=== PATIENT | female | born 1975 | race Caucasian/White ===

== ENCOUNTER → 2018-03-03 14:44 | Outpatient (CLI) | payer BC, SELFPAY ==
[2018-03-03 16:02] LABS: Hematocrit 40.8 % (37-47); Hemoglobin 13.9 g/dl (12.0-15.0); Mean Corp Hgb Conc 34.1 g/gl (32-36); Mean Corpuscular Volume 90.9 fL (81-99); Mean Platelet Vol. 11.3 fl (6.2-12.0); Platelet Count 289 K/mm3 (150-450); RBC Distribution Width CV 11.9 % (11.6-14.6); Red Blood Count 4.49 M/mm3 (4.2-5.4); White Blood Count 7.3 K/mm3 (4.4-11.0)
[2018-03-03 16:14] LABS: Scan Indicated on CBC? Y/N NO
[2018-03-03 16:27] LABS: Anion Gap 3 (5-15); BUN 11 mg/dL (7-18); BUN/Creat Ratio 10.7 RATIO (10-20); Chloride 105 mmol/L (98-107); Creatinine, Serum 1.03 mg/dL (0.55-1.02); EST Glomerular Filtration Rate 62 mL/min (>60); Est Glom Filt Rate - Afr Amer 75 mL/min (>60); Glucose 82 mg/dL (74-106); Magnesium 2.1 mg/dL (1.6-2.6); Potassium 3.9 mmol/L (3.5-5.1); Sodium Level 138 mmol/L (136-145)
== END ==
PROVIDERS: Family Provider Family Medicine; PCP Family Medicine; Visit Provider Physician Assistant Medical
DX: I49.3 Ventricular premature depolarization (principal); R55 Syncope and collapse; I47.1 Supraventricular tachycardia
CPT/HCPCS: 36415; 80048; 83735; 85027

== ENCOUNTER → 2018-03-04 08:58 | Outpatient (CLI) | payer BC, SELFPAY | PROVIDERS: Family Provider Family Medicine; PCP Family Medicine; Visit Provider Physician Assistant Medical | DX: I49.3 Ventricular premature depolarization (principal); I47.1 Supraventricular tachycardia; R55 Syncope and collapse | CPT/HCPCS: 93225; 93226 ==

== ENCOUNTER → 2018-03-28 07:31 | Day surgery (SDC) | payer BC, SELFPAY ==
[2018-03-21 15:41] LABS: Hematocrit 41.6 % (37-47); Hemoglobin 13.9 g/dl (12.0-15.0); Mean Corp Hgb Conc 33.4 g/gl (32-36); Mean Corpuscular Hgb 30.3 pg (27.0-32.0); Mean Corpuscular Volume 90.8 fL (81-99); Mean Platelet Vol. 11.1 fl (6.2-12.0); Platelet Count 285 K/mm3 (150-450); RBC Distribution Width SD 39.5 fl (35.1-43.9); Red Blood Count 4.58 M/mm3 (4.2-5.4); White Blood Count 7.9 K/mm3 (4.4-11.0)
[2018-03-21 15:42] LABS: Scan Indicated on CBC? Y/N NO
[2018-03-21 16:14] LABS: Anion Gap 8 (5-15); BUN 11 mg/dL (7-18); BUN/Creat Ratio 15.3 RATIO (10-20); Calcium,Total 8.9 mg/dL (8.5-10.1); Chloride 104 mmol/L (98-107); Creatinine, Serum 0.72 mg/dL (0.55-1.02); EST Glomerular Filtration Rate 94 mL/min (>60); Est Glom Filt Rate - Afr Amer 113 mL/min (>60); Glucose 61 mg/dL (74-106); Potassium 4.1 mmol/L (3.5-5.1); Sodium Level 142 mmol/L (136-145)
[2018-03-25 10:33] VITALS: BMI 33.0
--- NOTE | 2018-03-28 09:54 | CL.IE_ITS ---
Patient: GONZALEZ LARSON Study Date: 03/28/2018 Performing: Carter Balderrama MD : 1975 Age: 43 Gender: female PROCEDURES PERFORMED [id number] OF LOOP RECORDER INDICATIONS Syncope PROCEDURE DETAILS The patient was brought to the Catheterization Lab in the postabsorptive nonsedated state. Informed consent was obtained prior to the procedure. Local anesthetic was given subcutaneously to the left up per chest area with Lidocaine 2%. Incision was made to the left upper chest. ICM Loop Recorder was in serted. Steri-strips applied to Lt chest area. The patient tolerated the procedure well. Estimated Blood Loss: < 10 mls IMPLANTED / EX-PLANTED DEVICES DEVICE PARAMETERS CONCLUSIONS / RECOMMENDATIONS PROCEDURE MEDICATIONS Versed 1 mg IV Versed 1 mg IV Oxygen: 2 L/min via nasal cannula Antibiotic given in appropriate timeframe. Ancef 2 Gm IV @ 03/28/2018 09:30:21 Signed By Carter Balderrama MD On 03/28/2018 09:53:15 Carter Balderrama MD
== END ==
PROVIDERS: Internal Medicine Cardiovascular Disease; Family Provider Family Medicine; PCP Family Medicine; Visit Provider Internal Medicine Cardiovascular Disease
DX: I47.1 Supraventricular tachycardia (principal); I49.3 Ventricular premature depolarization; M79.7 Fibromyalgia; K58.9 Irritable bowel syndrome, unspecified; G40.909 Epilepsy, unspecified, not intractable, without status epilepticus; Z87.19 Personal history of other diseases of the digestive system; Z86.2 Personal history of diseases of the blood and blood-forming organs and certain disorders involving the immune mechanism; Z86.73 Personal history of transient ischemic attack (TIA), and cerebral infarction without residual deficits; Z90.49 Acquired absence of other specified parts of digestive tract; Z79.899 Other long term (current) drug therapy
CPT/HCPCS: 33282; 36415; 80048; 85027; 99152; 99153; J7040

== ENCOUNTER 2018-05-01 12:58 | Emergency (ER) | payer BC, SELFPAY ==
[2018-05-01 13:00] VITALS: BP 125/63; PULSE 65; RESP 12; TEMP 36.8; O2SAT 100; BMI 33.2
--- NOTE | 2018-05-01 14:59 | ED.VISSUMM ---
- ER Visit Summary Date of Service: 05/01/18 Chief Complaint: Surgical site pain History of Present Illness: The patient is a 43 F who states that on March 29 she had a loop recorder placed. She states that everything is been going well until yesterday when she began have an itch at the surgical site. She states she went to scratch it was very painful. Now she states that the pain is worse. She tells me she cannot take anti-inflammatories. She has chronic back pain. Physical Examination: Afebrile vital signs stable At the site of the surgical incision medial aspect left breast there is a healed incision. Is mildly tender to palpation there is no significant swelling. There is no erythema around the area. Emergency Department Course and Treatment: I spoke with for the patient's automation qa analyst. Patient be treated conservatively at home some heat avoidance of irritation. Should resolve. Return if worsening or concerns Impression: 1. Postoperative wound pain not infected This note was generated with Share0 dictation software. It may contain incorrect words, spelling, and punctuation that were not noted in review of the chart prior to signing ED Disposition - Plan for ED Patient: Disposition: Home or Assisted Living Chief Complaint: Abscess Instructions: ED Post Op Pain, ED Seroma Post Op Referrals: Carter Balderrama MD [STAFF PHYSICIAN] - 3-5 Days if not improving
== END 2018-05-01 15:45 | disposition home or self-care (01) ==
PROVIDERS: Emergency Provider Emergency Medicine; Family Provider Family Medicine; PCP Family Medicine
DX: G89.18 Other acute postprocedural pain (principal); M54.9 Dorsalgia, unspecified; G89.29 Other chronic pain; I47.1 Supraventricular tachycardia; Z86.73 Personal history of transient ischemic attack (TIA), and cerebral infarction without residual deficits; Z79.899 Other long term (current) drug therapy
CPT/HCPCS: 99282

== ENCOUNTER → 2018-07-19 13:02 | Outpatient (CLI) | payer BC, SELFPAY ==
--- NOTE | 2018-07-19 13:04 | RAD_ITS ---
STUDY: X-RAY - LEFT KNEE REASON FOR EXAM: Chronic pain. TECHNIQUE: 4 view(s) of the knee. COMPARISON: None. FINDINGS: Normal visualized distal femur. Normal visualized proximal tibia and fibula. Normal proximal tibiofibular articulation. Normal medial femorotibial compartment. Normal lateral femorotibial compartment. Normal patellofemoral articulation. The soft tissue structures are unremarkable. RAD/Knee 4 or More Views IMPRESSION: Normal x-ray examination of the left knee. Electronically Signed: Juan Dias MD at 9:18 EST Tel , Service support ,
== END ==
PROVIDERS: Family Provider Family Medicine; PCP Family Medicine; Referring Provider Orthopaedic Surgery; Visit Provider Orthopaedic Surgery
DX: M25.562 Pain in left knee (principal)
CPT/HCPCS: 73564

== ENCOUNTER → 2018-08-17 17:37 | Outpatient (CLI) | payer BC, SELFPAY ==
--- NOTE | 2018-08-17 17:54 | MRI_ITS ---
STUDY: MRI LEFT ANKLE WITHOUT CONTRAST REASON FOR EXAM: Female, 43 years old. Plantar heel pain to arch. TECHNIQUE: Standardized fat and water weighted pulse sequences were obtained in all 3 orthogonal planes. COMPARISON: None. FINDINGS: There is a 0.4 x 0.6 x 1.5 cm cystic lesion along the dorsal aspect of the third metatarsal base. This most likely represents a ganglion cyst. There is otherwise no soft tissue mass or cyst. Normal posterior tibialis tendon. Normal flexor digitorum longus tendon. Normal flexor hallucis longus tendon. Normal peroneus longus and brevis tendons. Normal tibialis anterior tendon. Normal extensor hallucis longus tendon. Normal extensor digitorum longus tendons. Normal Achilles tendon and teno-osseous insertion. There is a small calcaneal heel spur. There is mild marrow edema in the plantar calcaneus. There is mild thickening of the origin of the plantar fascia. Findings are consistent with mild plantar fasciitis. There is no high-grade tear. Mild edema is noted in the head of the talus. There is no evidence of fracture. Narrow signal is otherwise normal. Normal intrinsic muscles of the rearfoot. Normal distal tibiofibular syndesmotic ligamentous complex. Normal lateral ligamentous complex. Normal subtalar ligaments and sinus tarsi. Normal deltoid ligamentous complexes. Normal plantar calcaneonavicular (spring) ligament. There is a small ankle joint effusion. Trace subtalar joint effusion is noted. Joint spaces are otherwise well-maintained. MRI/Lower Ext Joint Only (Routine) IMPRESSION: Mild plantar fasciitis. A 1.5 cm ganglion cyst along the dorsal aspect of the third metatarsal base. Mild marrow edema in the talar head, possible early degenerative change. Electronically Signed: Desiree Ignacio MD at 22:15 EST Tel , Service support ,
== END ==
PROVIDERS: Family Provider Family Medicine; PCP Family Medicine; Referring Provider Podiatrist; Visit Provider Podiatrist
DX: M72.2 Plantar fascial fibromatosis (principal); M84.375A Stress fracture, left foot, initial encounter for fracture; M79.672 Pain in left foot
CPT/HCPCS: 73721

== ENCOUNTER → 2018-08-26 10:16 | Outpatient (CLI) | payer BC, SELFPAY ==
[2018-08-26 12:47] LABS: Absolute Lymphocyte Count 1.66 X10^3/ul (0.83-4.51); Absolute Neutrophil Count 4.2 X10^3/uL (2.0-7.7); Basophil# 0.03 X10^3/uL; Basophil% 0.5 % (0-1); Eosinophil# 0.08 X10^3/uL; Eosinophils% 1.3 % (0-5); Hematocrit 40.4 % (37-47); Hemoglobin 13.4 g/dl (12.0-15.0); Lymphocyte # 1.66 X10^3/ul (4.0); Mean Corp Hgb Conc 33.2 g/gl (32-36); Mean Corpuscular Hgb 29.9 pg (27.0-32.0); Mean Corpuscular Volume 90.2 fL (81-99); Mean Platelet Vol. 11.6 fl (6.2-12.0); Monocyte# 0.44 X10^3/uL; Monocyte% 6.9 % (0-10); Neutrophil # 4.16 X10^3/uL (2.7-7.7); Neutrophil % 65.1 % (47-70); Platelet Count 273 K/mm3 (150-450); RBC Distribution Width CV 12.3 % (11.6-14.6); RBC Distribution Width SD 39.6 fl (35.1-43.9); Red Blood Count 4.48 M/mm3 (4.2-5.4); White Blood Count 6.4 K/mm3 (4.4-11.0)
[2018-08-26 13:02] LABS: POSITIVE COUNT NO; POSITIVE DIFFERENTIAL NO; POSITIVE MORPHOLOGY NO
[2018-08-26 13:58] LABS: ALB/GLOB Ratio 1.1 RATIO (0.9-2.4); AST(SGOT) 21 U/L (15-37); Alanine Aminotransfer ALT/SGPT 36 U/L (13-56); Albumin, Serum 3.7 g/dL (3.2-5.0); Alkaline Phosphatase 72 U/L (45-117); Anion Gap 6 (5-15); BUN 11 mg/dL (7-18); BUN/Creat Ratio 15.1 RATIO (10-20); Calcium,Total 8.6 mg/dL (8.5-10.1); Chloride 106 mmol/L (98-107); Creatinine, Serum 0.73 mg/dL (0.55-1.02); EST Glomerular Filtration Rate 92 mL/min (>60); Est Glom Filt Rate - Afr Amer 111 mL/min (>60); Globulin 3.4 g/dL (2.2-4.2); Glucose 91 mg/dL (74-106); Potassium 3.9 mmol/L (3.5-5.1); Protein, Total 7.1 g/dL (6.4-8.2); Sodium Level 140 mmol/L (136-145); Thyroid Stim Hormone (TSH) 0.97 uIU/mL (0.358-3.74)
--- OUTSIDE RECORDS SUMMARY | 2018-10-12 01:09 | XMS RPT_ITS ---
:1975 Author Organization OHIP Support Name Relationship Address Phone ADDIS AMIN Unavailable [address] + [place] [address] UE Unavailable Unavailable Unavailable BRENNAN, ADDIS M Unavailable [address] + [place] [address] BRENNAN, PAULO M Unavailable [address] + [place] [address] UE Unavailable Unavailable Unavailable BRENNAN, ADDIS M Unavailable [address] + [place] [address] BRENNAN, PAULO M Unavailable [address] + [place] [address] UE Unavailable Unavailable Unavailable BRENNAN, ADDIS M Unavailable [address] + [place] [address] BRENNAN, PAULO M Unavailable [address] + [place] [address] UE Unavailable Unavailable Unavailable BRENNAN, ADDIS M Unavailable [address] + [place] [address] BRENNAN, PAULO M Unavailable [address] + [place] [address] UE Unavailable Unavailable Unavailable BRENNAN, ADDIS M Unavailable [address] + [place] [address] BRENNAN, PAULO M Unavailable [address] + [place] [address] UE Unavailable Unavailable Unavailable BRENNAN, ADDIS M Unavailable [address] + [place] [address] BRENNAN, PAULO M Unavailable [address] + [place] [address] UE Unavailable Unavailable Unavailable BRENNAN, ADDIS M Unavailable [address] + [place] [address] BRENNAN, PAULO M Unavailable [address] + [place] [address] UE Unavailable Unavailable Unavailable BRENNAN, ADDIS M Unavailable [address] + [place] [address] BRENNAN, PAULO M Unavailable [address] + [place] [address] UE Unavailable Unavailable Unavailable BRENNAN, ADDIS M Unavailable [address] + [place] [address] BRENNAN, PAULO M Unavailable [address] + [place] [address] UE Unavailable Unavailable Unavailable BRENNAN, ADDIS M Unavailable [address] + [place] [address] BRENNAN, PAULO M Unavailable [address] + [place] [address] UE Unavailable Unavailable Unavailable BRENNAN, ADDIS M Unavailable [address] + [place] [address] BRENNAN, PAULO M Unavailable [address] + [place] [address] UE Unavailable Unavailable Unavailable BRENNAN, ADDIS M Unavailable [address] + [place] [address] BRENNAN, PAULO M Unavailable [address] + [place] [address] UE Unavailable Unavailable Unavailable BRENNAN, ADDIS M Unavailable [address] + [place] [address] BRENNAN, PAULO M Unavailable [address] + [place] [address] UE Unavailable Unavailable Unavailable BRENNAN, ADDIS M Unavailable [address] + [place] [address] BRENNAN, PAULO M Unavailable [address] + [place] [address] UE Unavailable Unavailable Unavailable BRENNAN, ADDIS M Unavailable [address] + [place] [address] BRENNAN, PAULO M Unavailable [address] + [place] [address] UE Unavailable Unavailable Unavailable BRENNAN, ADDIS M Unavailable [address] + [place] [address] BRENNANPAULO Unavailable [address] + [place] [address] UE Unavailable Unavailable Unavailable BRENNANADDIS M Unavailable [address] + [place] [address] BRENNANPAULO Unavailable Unavailable + UE Unavailable Unavailable Unavailable BRENNAN, ADDIS M Unavailable [address] + [place] [address] UE Unavailable Unavailable Unavailable BRENNANADDIS M Unavailable [address] + [place] [address] UE Unavailable Unavailable Unavailable Care Team Providers Name Role Phone Leo Gonzalez Attending Unavailable Lexa, Mane Primary Care Unavailable Ebenezer Durham Attending Unavailable Lexa, Mane Referring Unavailable Lexa, Mane Primary Care Unavailable Ebenezer Durham Attending Unavailable Lexa, Mane Referring Unavailable Rayne Thomas Attending Unavailable Rayne Thomas Referring Unavailable Lexa, Mane Primary Care Unavailable Celine Sampson Attending Unavailable Lexa, Mane Referring Unavailable Leo Mazariegos Attending Unavailable Leo Gonzalez Attending Unavailable Leo Gonzalez Referring Unavailable Lexa, Mane Primary Care Unavailable Leo Gonzalez Attending Unavailable eLo Gonzalez Referring Unavailable Lexa, Mane Primary Care Unavailable Dani Gonzalez Consulting Unavailable Lupe Morse Attending Unavailable Lexa, Mane Referring Unavailable Lupe Morse Attending Unavailable Lexa, Mane Referring Unavailable Lexa, Mane Primary Care Unavailable Stewart Balderramal Attending Unavailable Conchis, Carter Referring Unavailable Lexa, Mane Primary Care Unavailable Ebenezer Durham Consulting Unavailable Kamron Elise Attending Unavailable LexaMane brown Referring Unavailable Kamron Elise Attending Unavailable Lexa, Mane Referring Unavailable Ebenezer Durham Attending Unavailable Conchis, Carter Attending Unavailable Lexa, Mane Primary Care Unavailable Lonnie Coates Attending Unavailable Lupe Morse Attending Unavailable Lexa, Mane Referring Unavailable Celine Sampson Attending Unavailable Lexa, Mane Referring Unavailable Celine Sampson Attending Unavailable Celine Sampson Referring Unavailable Mane Lindquist Primary Care Unavailable Fascione, Rayne Attending Unavailable Fascione, Rayne Referring Unavailable LexaMane brown Primary Care Unavailable LJ BENITES (FEL) Referring Unavailable LJ BENITES (FEL) Referring Unavailable ARELLANOADDIS [place] Referring Unavailable DELZELL, FREDDY B Referring Unavailable VILLAREAL, JESUS P Attending Unavailable VILLAREAL, JESUS P Admitting Unavailable VILLAREAL, JESUS P Attending Unavailable VILLAREAL, JESUS P Referring Unavailable VILLAREAL, JESUS P Attending Unavailable VILLAREAL, JESUS P Attending Unavailable VILLAREAL, JESUS P Attending Unavailable VILLAREAL, JESUS P Attending Unavailable VILLAREAL, JESUS P Referring Unavailable SILVIARADHABRISA Attending Unavailable SILVIA, BRISA Referring Unavailable Fascione, Rayne M Primary Care Unavailable Delzell, Freddy Attending Unavailable Delzell, Freddy Admitting Unavailable Fascione, Rayne M Admitting Unavailable Fascione, Rayne M Attending Unavailable Fascione, Rayne M Primary Care Unavailable Fascione, Rayne M Primary Care Unavailable Chicmichael, Catherine Porras Attending Unavailable Chicorelshilo, Cahterine Porras Admitting Unavailable PROBLEMS PROBLEMS DATE TYPE CONDITION / CODE ATTENDING STATUS SOURCE 09/01/2018 Unknown M25.562 - Pain in left [place], Active [place] knee / M25.562(ICD-10) [facility] Repository 09/01/2018 Unknown G89.29 - Other chronic [place], Active [place] pain / G89.29(ICD-10) [facility] Repository 09/01/2018 Unknown S76.312D - Strain of [place], Active [place] muscle, fascia and [facility] posterior muscle group Repository at thigh level, left thigh, subsequent encounter / S76.312D(ICD-10) 08/11/2018 Active Other specified NA Active [facility] Main nasal sinuses / [facility] J34.89(ICD-10) Repository 08/01/2018 Active Low back pain / NA Active [facility] M54.5(ICD-10) [facility] Main [place] Repository 08/01/2018 Active Other chronic pain / NA Active [place] G89.29(ICD-10) [facility] Main [place] Repository 07/13/2018 Unknown R55 - Syncope and Lupe Morse Active [place] collapse / [facility]-10) [facility] 07/13/2018 Unknown I49.3 - Ventricular Lupe Morse Active [place] premature [facility] depolarization / Hospital I49.3(ICD-10) Repository 07/13/2018 Unknown I47.1 - Lupe Morse Active [place] Supraventricular [facility] tachycardia / Hospital I47.1(ICD-10) Repository 07/13/2018 Unknown Z95.818 - Presence of Lupe Morse Active [facility] other cardiac implants Community and grafts / Hospital Z95.818(ICD-10) Repository 12/01/2017 Active Sacroiliitis, not VILLAREAL, Active [facility] elsewhere classified / JESUS P Clinic Main M46.1(ICD-10) [facility] Repository 12/01/2017 Active Iliotibial band VILLAREAL, Active [place] syndrome, left leg / JESUS P Clinic Main M76.32(ICD-10) [facility] Repository 10/28/2017 Active Pain in left hip / NA Active [place] M25.552(ICD-10) [facility] Main [place] Repository 09/28/2017 Active Trochanteric bursitis, NA Active [place] left hip / Clinic Main M70.62(ICD-10) [facility] Repository 09/28/2017 Active Other specified NA Active [place] disorders of muscle / Clinic Main M62.89(ICD-10) [facility] Repository 09/28/2017 Active Radiculopathy, NA Active [place] cervical region / Clinic Main M54.12(ICD-10) [facility] Repository PROCEDURES PROCEDURES No Procedure Records FoundRESULTS RESULTS OPERATIVE REPORT Observed: 09/15/2018 Status: F Source: [place] 10:24 AM [facility] REPOSITORY [facility] Medical Records Department [address] [place] [address] Operative Report 09/09/18 1215 MR#: [id number] Acct: [id number] Name: LINDA AMIN Rep #: [id number] : 1975 43 From: Rayne Thomas DPM PCP: Mane Lindquist DO Status: DEP [facility] Y Location: [facility] Problem List (1) Plantar fasciitis of left foot Status: Chronic (2) Left foot pain Status: Chronic Report of Operation Date of Procedure: 09/09/18 - Surgeon: Rayne Thomas DPM. Dietary Service Aide: Dilip Hahn, PGY2 Pre-Operative Diagnosis: plantar fasciitis, left foot Post-Operative Diagnosis: plantar fasciitis, left foot Surgery/Procedure Performed:: open plantar fasciotomy, left foot Description of Surgical Findings:: hemostasis: Well-padded pneumatic left ankle tourniquet, 250 mmHg, 16 minutes Materials: 3-0 Vicryl and 4-0 nylon Complications: None Findings: Thickening of the plantar fascial band without other gross abnormalities or necrosis prisoner classification interviewer: none Type of Anesthesia:: Local, MAC - Preoperative: 1: 1 mix of 1% lidocaine plain and 0.25% Marcaine plain, 8cc to tibial nerve left Intraoperative: 6 cc of 0.25% Marcaine plain administered in a local infiltrative manner to left heel Specimen's removed: none Estimated Blood Loss (mL): <10 mL Description of Procedure: Indication: This 43-year-old pleasant female with 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 The onset is over 6 months ago and she is failed conservative care including stretching, exercises, shockwave therapy, and also radiculopathy workup and treatment. She demonstrates clinical pain on palpation to medial tubercle of the calcaneal tuberosity and plantar central heel and just distal to this attachment site. She has a negative Tinel test to the tibial nerve. Her neurovascular status is intact. Her preoperative history and physical exam performed by her primary care physician as well as preoperative laboratory diagnostic data were reviewed. No gross abnormalities were noted and she was cleared with low risk. She did also have preoperative imaging including plain x-ray and MRI. A small heel spur was noted and there was no cystic changes or evidence of stress fracture. There was marrow edema at the insertion of the plantar fascial band and thickening and inflammation of the medial and central plantar fascial bands. The preoperative indication, planned procedure, possible benefits, risks, complications, and anticipated healing time and management were discussed in detail to patient. She understands and elects to proceed with surgery at this time. No guarantees were made. She understands risks and complications may include but are not limited to the following: continued pain, swelling, scarring, recurrence, under or overcorrection, loss of sensation, need for further surgery, loss of limb, function, life. I answered all of her questions. The surgical consent and limb were signed. Procedure in detail: The patient was transported to the operating room via cart and placed on the operating table in supine position. Final verification of the patient, surgery, limb designation was performed via the timeout procedure. A well-padded pneumatic left ankle tourniquet was applied. The preoperative injection was administered by the podiatry team. MAC anesthesia was initiated by the anesthesia team. The left lower extremity was prepped and draped in the usual aseptic manner. Surgery began in the following manner after an Esmarch bandage was utilized exsanguinate the limb and the tourniquet was inflated: Attention was first directed approximately 1.5 cm distal to the plantar weightbearing surface of the medial heel. A horizontal 1.5 cm linear incision was made through the skin remaining parallel to the resting skin tension lines. Next, blunt dissection was performed through the adipose tissue and the plantar fascial band was directly visualized. A 15 blade was utilized to release the plantar fascia band including the medial aspect and the entire central band. The windlass mechanism was re-created and decreased tension was visualized and palpated. Additional tenotomy scissor was used to ensure the medial slips extending into the abductor hallucis muscle belly sheath were thoroughly released as well. This plantar fascial band did appear thick and there were no other abnormal findings. Minimal electrocauterization was utilized to control hemostasis for a superficial vein in this region. The tourniquet was deflated at this time and no pulsatile bleeding was noted. Brisk capillary refill time was noted to all digits of the surgical limb. Additional Marcaine local anesthetic was administered and a local infiltrative manner for additional pain control. One Vicryl stitch was applied for deep closure. Next, the skin was reapproximated utilizing 4-0 nylon with horizontal mattress technique. A postoperative dressing consisting of Adaptic soaked in Betadine, gauze, Kerlix and webril was applied to left foot. A well-padded posterior mold with the foot in a neutral position was next applied. After procedure: The patient tolerated the procedure and anesthesia well. She was transported to the PACU with vital signs stable and vascular status intact to left lower extremity. She was advised to ice and elevate for pain and inflammation management. She was advised to remain nonweightbearing to left lower extremity with assistive devices; she has a knee roller at home already. She is advised to keep her dressing and splint clean, dry, and intact until [facility] next week with Dr. Thomas. She was advised on safe and proper use of postoperative oral pain medication; a prescription was already provided. All of her postoperative orders were entered electronically. She will be discharged home today. Rayne Thomas DPM, FACFAS [facility] - Complications none 09/15/18 1024 <Electronically signed by Rayne Thomas DPM> Date Rayne Thomas DPM CC: Rayne Thomas DPM; Mane Lindquist DO Signed DISCHARGE INSTRUCTION Observed: 09/09/2018 Status: F Source: [place] 12:07 PM [facility] REPOSITORY [facility] Medical Records Department [address] [place] [address] Instructions for Home/Discharge Instructions 09/09/18 1206 MR#: [id number] Acct: [id number] Name: LINDA AMIN Rep #: [id number] : 1975 43 From: Rayne Thomas DPM PCP: Mane Lindquist DO Status: REG [facility] Discharge Diet: No Restrictions Discharge Activity: May not drive while taking narcotic pain medications. Weight Bearing Status: No weight bearing Keep extremity elevated above heart level: Left Leg Call your doctor if your incision/area has: Continuous Slow Oozing, Sudden Increased Bleeding, Increased Pain/ Swelling, Increased Redness, Foul Smelling Discharge, Swelling at the incision site Call your doctor if you observe: Fever of 101 or Higher, Numbness or Tingling, Calf discomfort, Uncontrolled pain Cleanse incision/area with: Keep Dressing Clean AND Dry Allergies/Adverse Reactions: Allergies codeine Allergy (Unknown, Verified 09/02/18 11:12) tachycardia, syncope adhesive tape Allergy (Verified 09/02/18 11:12) blisters Medications to take at Discharge Cyanocobalamin (Vitamin B-12) [B-12] 5,000 mcg PO DAILY 05/30/15 Magnesium Oxide [Magnesium] 400 mg PO QHS 05/30/15 Ascorbic Acid [Vitamin C] 1,000 mg PO QHS 10/21/16 cholecalciferol (vitamin D3) 2,000 unit capsule 2,000 unit PO QDAY cap 10/04/17 lactobacillus combination no.8 3 billion cell capsule 3,000 mmu cells PO QDAY 10/08/17 Calcium (Elemental) [Os-Spenser 500] 500 mg PO DAILY@0800 09/02/18 Metoprolol Succinate [Toprol Xl] 100 mg PO QHS 09/02/18 Primary Care Physician: Mane Lindquist DO [Primary Care Provider] - Test Results: Test results from this visit will be discussed in further detail at your follow-up appointment, if applicable. Please Follow Up With: Rayne Thomas DPM When: [facility]. Call [phone] if questions. Proposed Discharge Date: 09/09/18 09/09/18 1207 <Electronically signed by Rayne Thomas DPM> Date Rayne Thomas DPM CC: Mane Lindquist DO Signed ,URINE Collected: 09/09/2018 Status: F Source: [place] 9:46 AM [facility] REPOSITORY Order Comment: Reason for Laboratory Test PREOP TYPE CODE TESTS RESULT OUT OF REFERENCE UNITS RANGE LAB L400.8000 Negative Normal HCGUQUAL Negative Result Comment: Very dilute urine specimens, as indicated by a low specific gravity, may not contain bilingual sales representative levels of hCG. If is still suspected, a first morning urine specimen should be collected 48 hours later and tested. Performed By: #### L400.7600 #### [facility] [address] [place], [address] ORTHOPEDIC VISIT Observed: 09/01/2018 Status: F Source: [place] REPORT 1:29 PM [facility] REPOSITORY [facility] [address] [place] [address] OFFICE VISIT Date of Service: 09/01/18 MR#: [id number] Acct: [id number] Name: LINDA AMIN Rep #: [id number] : 1975 Provider: Celine Sampson DO Age/Sex: 43/F Location: [facility] Status: Signed Intake Intake Visit Reasons: LEFT KNEE Is patient in pain?: Yes Allergies codeine Allergy (Unknown, Verified 09/01/18 12:49) tachycardia, syncope Medications Cyanocobalamin (Vitamin B-12) [B-12] 5,000 mcg PO DAILY 05/30/15 [History Confirmed 05/01/18] Magnesium Oxide [Magnesium] 400 mg PO QHS 05/30/15 [History Confirmed 05/01/18] Ascorbic Acid [Vitamin C] 1,000 mg PO QHS 10/21/16 [History Confirmed 05/01/18] cholecalciferol (vitamin D3) 2,000 unit capsule 2,000 unit PO QDAY cap 10/04/17 [History Confirmed 05/01/18] lactobacillus combination no.8 3 billion cell capsule 3,000 mmu cells PO QDAY 10/08/17 [History Confirmed 05/01/18] metoprolol succinate ER 100 mg tablet,extended release 24 hr 100 mg PO QDAY #90 tab 04/15/18 [Rx Confirmed 05/01/18] PFSH Medical History Premature ventricular contraction (Chronic) Syncope (Chronic) Supraventricular tachycardia (Chronic) Anemia (Acute) Diverticulitis (Acute) Fibromyalgia (Acute) IBS (irritable bowel syndrome) (Acute) Seizure (Acute) TIA (transient ischemic attack) (Acute) Recurrent syncope (Inactive) Sinus tachycardia (Inactive) Status post ablation for SVT (Inactive) Surgical History Status post placement of implantable loop recorder (Acute 03/28/18) History of cholecystectomy (Resolved) History of shoulder surgery (Resolved) S/P foot surgery, left (Resolved) Status post ablation of ventricular arrhythmia (Resolved 04/14/13) Family History Mother Diabetes CAD (coronary artery disease) CVA (cerebral vascular accident) Myocardial infarction Father Hypertension CVA (cerebral vascular accident) CHF (congestive heart failure) Social History Smoking Status: Never smoker alcohol intake: never HPI LEFT KNEE: Details: LINDA AMIN is a 43 year old F here today for a followup on her left knee. Patient states that she was doing well but then she started feeling pressure into her posterior knee.She feels better but not 100%. Patient feels like she has locking into her anterior superior knee. She has popping and clicking. She has some swelling at times. She has increased pain with physical therapy and turning. Denies numbness, tingling or other associated symptoms. ROS Const Reports system reviewed and no additional complaints, except as docu Eyes Reports system reviewed and no additional complaints, except as docu ENT Reports system reviewed and no additional complaints, except as docu Card Reports system reviewed and no additional complaints, except as docu Resp Reports system reviewed and no additional complaints, except as docu GI Reports system reviewed and no additional complaints, except as docu Reports system reviewed and no additional complaints, except as docu Musc Reports joint pain, Reports joint swelling Skin/Breast Reports system reviewed and no additional complaints, except as docu Neuro Yes system reviewed and no additional complaints, except as docu Psych Reports system reviewed and no additional complaints, except as docu Endo Reports system reviewed and no additional complaints, except as docu Ortho Exam Left Knee Skin/Wound: Yes CDI Contralateral Normal: Yes Swelling: No Homans Sign: No Knee ROM: Yes ROM-Extension -20 to 0, Yes ROM-Flexion 0-140 (120) Examination: Yes Pain with flexion, Yes med jt line tenderness, Yes Crepitus Stability: NML: Anterior Drawer Patella Grind: Yes Office Procedures Kenalog 40 mg/mL suspension for injection (triamcinolone acetonide) 80 mg Intra-Articular ONCE Injections Yes Knee Left Office Meds Kenalog Performing Provider: Celine Sampson DO Administered by: Celine Sampson DO on 09/01/18 13:12 Dose Route Admin Location Lot Number Expiration DateNDC It Support Manager 80 mg Intra-Articularleft knee [id number] 11/12/19 3337-9300-85 [place] Assessment AND Plan 1. Strain of left hamstring muscle, subsequent encounter S71.623Y Plan Reviewed her progress with strengthening. Instructed to continue to go to therapy. She has PF grinding today and her treatment options for that is an injection. She is also having foot surgery soon, she understands the risk and benefits of injection and elects to proceed. Follow up as needed or sooner if pain, swelling, numbness or associated symptoms, or concerns develop. All questions answered. Patient in agreement of plan. 2. Chronic pain of left knee M25.562; G89.29 Orders Orders: Medications Discontinued: Kenalog (triamcinolone acetonide) [id number] mg (2 mL) Intra-Articular ONCE 2 mL 0RF NS nued Reason: Office Medication has been Docu mented as given Coding Level of Care Code Off vis,est,level 3 Diagnoses Strain of left hamstring muscle, subsequent encounter S76.312D Encounter type: subsequent encounter Chronic pain of left knee M25.562; G89.29 Chronicity: chronic Additional Codes user interface [email or web address] ([id number]) 09/01/18 1329 <Electronically signed by Celine Sampson DO> Date Celine Sampson DO Cosigner Signature: Date (if applicable) CC: CBC W/DIFF, AUTOMATED Collected: 08/26/2018 Status: F Source: [place] 10:19 AM [facility] REPOSITORY Order Comment: DR. LINDQUIST ORDERED CMP AND CBCD LEO GONZALEZ ORDERED TSH ONLY TYPE CODE TESTS RESULT OUT OF RANGE REFERENCE UNITS LAB L100.1000 4.4-11.0 K/mm3 Normal WBC 6.4 LAB L100.1200 4.2-5.4 M/mm3 Normal RBC 4.48 LAB L100.1300 12.0-15.0 g/dl Normal HGB 13.4 LAB L100.1400 37-47 % Normal HCT 40.4 LAB L100.1500 81-99 fL Normal MCV 90.2 LAB L100.1600 27.0-32.0 pg Normal MCH 29.9 LAB L100.1700 32-36 g/gl Normal MCHC 33.2 LAB L100.1810 11.6-14.6 % Normal RDW CV 12.3 LAB L100.1820 35.1-43.9 fl Normal RDW SD 39.6 LAB L100.1900 150-450 K/mm3 Normal PLT 273 LAB L100.2000 6.2-12.0 fl Normal MPV 11.6 LAB L100.2100 47-70 % Normal NEUT% 65.1 LAB L100.2200 19-41 % Normal LY% 26.0 LAB L100.2300 0-10 % Normal MONO% 6.9 LAB L100.2400 0-5 % Normal EO% 1.3 LAB L100.2500 0-1 % Normal BASO% 0.5 LAB L100.2550 0.0-0.9 % Normal IM GRAN % 0.200 Result Comment: IG% - Immature Granulocytes (promyelocytes, myelocytes and metamyelocytes) > 1% indicates that a LEFT SHIFT is Present. LAB L100.2620 2.0-7.7 X10 3/uL Normal Absolute Neut 4.2 LAB L100.2720 0.83-4.51 X10 3/ul Normal Absolute Lymph 1.66 Performed By: #### L100.0100 #### [facility] [address] [place], [address] COMPREHENSIVE METABOLIC Collected: 08/26/2018 Status: F Source: [facility] 10:18 AM [facility] REPOSITORY TYPE CODE TESTS RESULT OUT OF RANGE REFERENCE UNITS LAB L501.0100 74-106 mg/dL Normal GLU 91 Result Comment: Please note revised GLUCOSE reference range effective 2017. LAB L501.1000 7-18 mg/dL Normal BUN 11 LAB L501.1100 0.55-1.02 mg/dL Normal CREAT,SERUM 0.73 Result Comment: The validity of the calculated GFR AND GFRAA in patients over 70 years has not been determined. Clinical correlation is essential. LAB L501.1110 >60 mL/min Normal EST GFR 92 Result Comment: Non- GFR Calc LAB L501.1115 >60 mL/min Normal EST GFR - AA 111 Result Comment: GFR Calc LAB L501.1300 10-20 RATIO Normal BUN/CRE 15.1 LAB L501.1500 6.4-8.2 g/dL T Normal PROT 7.1 LAB L501.1800 3.2-5.0 g/dL Normal ALB 3.7 LAB L501.1950 2.2-4.2 g/dL Normal GLOB 3.4 LAB L501.2000 0.9-2.4 RATIO Normal A/G 1.1 LAB L501.2200 8.5-10.1 mg/dL CA Normal 8.6 LAB L501.4100 15-37 U/L Normal AST 21 LAB L501.4305 45-117 U/L Normal ALK P 72 LAB L501.4405 13-56 U/L Normal ALT 36 LAB L501.4600 0.20-1.00 mg/dL T Normal BILI 0.60 LAB L501.5300 136-145 mmol/L NA Normal 140 LAB L501.5600 3.5-5.1 mmol/L K Normal 3.9 LAB L501.5900 98-107 mmol/L CL Normal 106 LAB L501.6100 21.0-32.0 mmol/L Normal CO2 28.0 LAB L501.6200 5-15 Normal GAP 6 Performed By: #### L500.4050, L501.9520 #### [facility] [address] [place], [address] THYROID STIM HORMONE Collected: 08/26/2018 Status: F Source: [place] (TSH) 10:18 AM [facility] REPOSITORY TYPE CODE TESTS RESULT OUT OF RANGE REFERENCE UNITS LAB 01.9520 0.358-3.74 uIU/mL Normal TSH 0.97 Performed By: #### L500.4050, L501.9520 #### [facility] [address] [place], [address] LOWER EXT JOINT ONLY Observed: 08/17/2018 Status: F Source: [place] (ROUTINE) 6:01 PM [facility] REPOSITORY [facility] Imaging Services [address] [place] [id number] Lower Ext Joint Only (Routine) MR#: [id number] Acct: [id number] Name: LINDA AMIN Rep #: [id number] : 1975 F 43 From: Desiree Ignacio MD PCP: Mane Lindquist DO Status: REG CLI Study: Lower Ext Joint Only (Routine) Date of Exam: 08/17/18 Exam# [id number] Ordering Dr: Rayne Thomas DPWaldo STUDY: MRI LEFT ANKLE WITHOUT CONTRAST REASON FOR EXAM: Female, 43 years old. Plantar heel pain to arch. TECHNIQUE: Standardized fat and water weighted pulse sequences were obtained in all 3 orthogonal planes. COMPARISON: None. FINDINGS: There is a 0.4 x 0.6 x 1.5 cm cystic lesion along the dorsal aspect of the third metatarsal base. This most likely represents a ganglion cyst. There is otherwise no soft tissue mass or cyst. Normal posterior tibialis tendon. Normal flexor digitorum longus tendon. Normal flexor hallucis longus tendon. Normal peroneus longus and brevis tendons. Normal tibialis anterior tendon. Normal extensor hallucis longus tendon. Normal extensor digitorum longus tendons. Normal Achilles tendon and teno-osseous insertion. There is a small calcaneal heel spur. There is mild marrow edema in the plantar calcaneus. There is mild thickening of the origin of the plantar fascia. Findings are consistent with mild plantar fasciitis. There is no high-grade tear. Mild edema is noted in the head of the talus. There is no evidence of fracture. Narrow signal is otherwise normal. Normal intrinsic muscles of the rearfoot. Normal distal tibiofibular syndesmotic ligamentous complex. Normal lateral ligamentous complex. Normal subtalar ligaments and sinus tarsi. Normal deltoid ligamentous complexes. Normal plantar calcaneonavicular (spring) ligament. There is a small ankle joint effusion. Trace subtalar joint effusion is noted. Joint spaces are otherwise well-maintained. MRI/Lower Ext Joint Only (Routine) IMPRESSION: Mild plantar fasciitis. A 1.5 cm ganglion cyst along the dorsal aspect of the third metatarsal base. Mild marrow edema in the talar head, possible early degenerative change. Electronically Signed: Desiree Ignacio MD at 22:15 EST Tel , Service support , CC: Rayne Thomas DPM; Mane Lindquist DO Brim Buster: Signed PROGRESS Observed: 08/11/2018 Status: COMPLETED Source: [facility] 1:33 PM [facility] REPOSITORY O ID: [id number] Author: Jyoti Orantes Ct Service: (none) Author Type: (none) Type: Progress Notes Filed: 08/11/2018 1:34 PM Note Text: Radiology Service Progress Note PATIENT NAME: Linda Amin DATE OF SERVICE: August 11, 2018 TIME: 1:33 PM PATIENT IDENTITY VERIFICATION COMPLETED USING TWO (2) METHODS: Patient confirmed name verbally and Date of . PATIENT GENDER DATA: Female. status: : No status: NO. PATIENT RELEVANT IMPLANT DATA REVIEWED: Not Applicable RADIOLOGY DEPARTMENT: CT; Exam(s) Completed: Sinus PERIPHERAL IV DATA: Not applicable SIGNED BY: Jyoti Orantes Ct August 11, 2018 1:[address] SINUS WO IVCON Observed: 08/11/2018 Status: F Source: [place] 1:33 PM [facility] REPOSITORY * * *Final Report* * * DATE OF EXAM: Aug 11 2018 1:33PM [facility] [id number] - CT SINUS WO IVCON / PROCEDURE REASON: Other specified disorders of nose and nasal sinuses * * * * Physician Interpretation * * * * EXAMINATION: CT SINUS WO IVCON CLINICAL HISTORY: Concern for encephalocele TECHNIQUE: Spiral high resolution axial unenhanced CT images were obtained through the paranasal sinuses with sagittal, coronal reconstructions. MQ: CTSI_1 Dose-Length Product (DLP): 152 mGy*cm. CT Dose Reduction Employed: Automated exposure control(AEC) and iterative recon COMPARISON: None. RESULT: RESULT: Post-Surgical Findings: None Sinus Chambers: Clear. No evidence of skull base defects within constraints of the technique. The bilateral olfactory recesses are patent. No evidence of encephalocele. Nasal Cavities: Visualized nasal cavities are patent. Developmental Anomalies: None Ostiomeatal Complex: Patent within the constraints of the study. Other: The visualized mastoid air cells and middle ear cavities are clear. The soft tissues of the face and orbits are within normal limits within the limitations of the study. IMPRESSION: Overall unremarkable exam Brim Buster: JORGITO Transcribe Date/Time: Aug 11 2018 5:31P Dictated by : KEREN DREW MD This examination was interpreted and the report reviewed and electronically signed by: KEREN DREW MD on Aug 11 2018 5:43PM EST [id number] PROGRESS Observed: 08/09/2018 Status: COMPLETED Source: [place] 3:53 PM [facility] REPOSITORY HNO ID: [id number] Author: Brisa Vega Service: (none) Author Type: Physician Type: Progress Notes Filed: 08/30/2018 9:00 AM Note Text: Staff Physician Comments: I testify that I personally interviewed and examined the patient. I reiterate the pertinent portions of the resident's exam and history as follows: Rhinorrhea that she is concerned represents cerebrospinal fluid (CSF) leak. Also recent vertigo with classic positional features. Rhinorrhea not reproducible in clinic. Ears clear. We will do a ct sinus to evaluate the anterior skullbase and refer further to rhinology if any lesion. Vertigo is classic for BPPV (benign paroxysmal positional vertigo), now resolved so we did not DH in clinic. Recommend follow-up with vestibular rehabilitation PT if symptoms recur. Handout on Cari maneuver also given. Brisa Vega MD, FACS Otology/Neurotology/Skull-Base Surgery Head and Neck [facility] History of Present Ilness Ms. 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 The chief complaint for this visit is: possible CSF leak In February of 2017, patient had acute left side spontaneous clear nasal drainage which was salty and metallic, after cervical physical therapy. She was seen by local ENT. She has tried on numerous occasions to get a sample, but has been unable to. Since that time, she has scant nasal drainage but no continuous dripping or salty, metallic taste. Does not seem to coincide with headache. Two week ago, patient began having vertigo. Feeling that she was swaying to the right. This is exacerbated by bending over, turning over in bed. During episodes, she describes disequilibrium. Episodes seem to last 8 hours. Between episodes, she describes fatigue. Nausea and vomiting. Headache and neck pain may be worse. Left tinnitus, sometimes pulsatile, not currently present. No acute changes in vision. He denies significant change in hearing, otalgia, or otorrhea. She has five year of autonomic dysfunction with vasovagal syncope with SVT for which she has a heart monitor. She episodes coincide with nausea and light-headedness. 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 metoprolol succinate ER (TOPROL XL) 100 mg Tb24 Take 1 tablet by mouth once daily. ascorbic acid, vitamin C, (VITAMIN C) 500 mg tablet Take 500 mg by mouth once daily. CALCIUM CARBONATE (CALCIUM 600 ORAL) Take by mouth. magnesium oxide (MAG-OX) 400 mg tablet Take 400 mg by mouth once daily. Cyanocobalamin 2,500 mcg subl Dissolve under the tongue. No current facility-administered medications on file prior to visit. Social History: FAMILY HISTORY Problem Relation Age of Onset - Diabetes Father - Cataract Father - Diabetes Mother Social History Marital status: Spouse name: Years of education: Number of children: Social History Main Topics Smoking status: Never Smoker Smokeless tobacco: Never Used Review of Systems: GENERAL: No complaints except as noted in [place]. NEUROLOGICAL: Negative HEAD, EYES, EARS, NOSE, AND THROAT: See HPI. Otherwise: CARDIOVASCULAR:No complaints of chest pain, irregular heart beat or dyspnea on exertion RESPIRATORY:No cough, sputum production and shortness of breath or wheezing GASTROINTESTINAL:No complaints of GI distress or change or bowel habits GENITOURINARY: No urinary frequency, blood in urine or dysuria EXTREMITY/MUSCULOSKELETAL/SKIN: negative HEMATOLOGY: Bleeding disorder - No Easy bruising - No ENDOCRINE:Negative for cold or heat intolerance, polyuria, polydipsia or goiter PSYCHOLOGICAL:neither Negative for sleep disturbance nor mood disorder nor recent psychosocial stressors Objective: There were no vitals taken for this visit. Appearance: Well appearing, alert, in no acute distress, well-hydrated, well nourished. Communication: Able to speak and communicates clearly Head/Face: normocephalic, no masses, lesions, tenderness or abnormalities Facial nerve: Normal 1/6 bilaterally Skin: no skin lesions or scarring on face Ophthlamic: Full ocular motility intact; pupils symmetric Ears: AD EAC clean without excess cerumen, TM normal with full light reflex and no loss of landmarks, middle ear without visible defects. EAC clean without excess cerumen, TM normal with full light reflex and no loss of landmarks, middle ear without visible defects. Rinne Esposito AD 256 = + + 512 = + + 1024 = + + Nose: external exam with straight profile Oral Cavity: dentition fair, pain with jaw protrusion on opening. Oropharynx: Uvula hangs midline; mucosa is pink and moist; tonsils present Neck: No cervical or supraclavicular lymphadenopathy and Normal thyroid Neuro/Psych.: Alert and oriented - no nystagmus Cranial nervesIII, IV, : EOM normal VII: Normal strength in all divisions IX, X: Normal voice, platal elevation and sensation XII: Tongue mobility normal Gait: normal for age Tandem gait: deferred due to foot injury Romberg: deferred due to foot injury Eye movements: full in all gaze positions, no nystagmus Flint-Halpike with light-headedness, but no vertigo, no torsional nystagmus Data Review: Audio: Vestibular testing battery/VNG: CT: MRI: MRI cervical spine report notable for MINIMAL DEGENERATIVE DISC DISEASE DETAILED ABOVE. NORMAL APPEARANCE OF THE BRAIN STEM AND CERVICAL CORD.UNREMARKABLE FLEXION AND EXTENSION IMAGES. 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 Low concern of cerebrospinal fluid (CSF) leak via ear. Plan: 1. CT sinus to evaluate for sinonasal encephalocele given history concerning for CSF leak and correlation with Indiana-Danlos 2. Patient will was instructed on BPPV and will perform Cari Maneuver at home prior to pursuing vestibular physical therapy given history of hyper flexibility, possibility of injury. Tien Torres MD, MPH In service of Kallie Vega MD CNOV Observed: 08/09/2018 Status: COMPLETED Source: [place] 3:20 PM [facility] REPOSITORY Office Visit (OTOLBD) LINDA AMIN ([id number]) 1975 F Date Time Provider Department 08/09/18 3:20 PM BRISA VEGA OTSHANDA During your visit today, we recorded the following information about you: Brisa Vega MD 08/30/2018 9:00 AM Signed Staff Physician Comments: I testify that I personally interviewed and examined the patient. I reiterate the pertinent portions of the resident's exam and history as follows: Rhinorrhea that she is concerned represents cerebrospinal fluid (CSF) leak. Also recent vertigo with classic positional features. Rhinorrhea not reproducible in clinic. Ears clear. We will do a ct sinus to evaluate the anterior skullbase and refer further to rhinology if any lesion. Vertigo is classic for BPPV (benign paroxysmal positional vertigo), now resolved so we did not DH in clinic. Recommend follow-up with vestibular rehabilitation PT if symptoms recur. Handout on Cari maneuver also given. Brisa Vega MD, FACS Otology/Neurotology/Skull-Base Surgery Head and Neck [facility] History of Present Ilness Ms. 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 The chief complaint for this visit is: possible CSF leak In February of 2017, patient had acute left side spontaneous clear nasal drainage which was salty and metallic, after cervical physical therapy. She was seen by local ENT. She has tried on numerous occasions to get a sample, but has been unable to. Since that time, she has scant nasal drainage but no continuous dripping or salty, metallic taste. Does not seem to coincide with headache. Two week ago, patient began having vertigo. Feeling that she was swaying to the right. This is exacerbated by bending over, turning over in bed. During episodes, she describes disequilibrium. Episodes seem to last 8 hours. Between episodes, she describes fatigue. Nausea and vomiting. Headache and neck pain may be worse. Left tinnitus, sometimes pulsatile, not currently present. No acute changes in vision. He denies significant change in hearing, otalgia, or otorrhea. She has five year of autonomic dysfunction with vasovagal syncope with SVT for which she has a heart monitor. She episodes coincide with nausea and light-headedness. 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 metoprolol succinate ER (TOPROL XL) 100 mg Tb24 Take 1 tablet by mouth once daily. ascorbic acid, vitamin C, (VITAMIN C) 500 mg tablet Take 500 mg by mouth once daily. CALCIUM CARBONATE (CALCIUM 600 ORAL) Take by mouth. magnesium oxide (MAG-OX) 400 mg tablet Take 400 mg by mouth once daily. Cyanocobalamin 2,500 mcg subl Dissolve under the tongue. No current facility-administered medications on file prior to visit. Social History: FAMILY HISTORY Problem Relation Age of Onset - Diabetes Father - Cataract Father - Diabetes Mother Social History Marital status: Spouse name: Years of education: Number of children: Social History Main Topics Smoking status: Never Smoker Smokeless tobacco: Never Used Review of Systems: GENERAL: No complaints except as noted in [place]. NEUROLOGICAL: Negative HEAD, EYES, EARS, NOSE, AND THROAT: See HPI. Otherwise: CARDIOVASCULAR:No complaints of chest pain, irregular heart beat or dyspnea on exertion RESPIRATORY:No cough, sputum production and shortness of breath or wheezing GASTROINTESTINAL:No complaints of GI distress or change or bowel habits GENITOURINARY: No urinary frequency, blood in urine or dysuria EXTREMITY/MUSCULOSKELETAL/SKIN: negative HEMATOLOGY: Bleeding disorder - No Easy bruising - No ENDOCRINE:Negative for cold or heat intolerance, polyuria, polydipsia or goiter PSYCHOLOGICAL:neither Negative for sleep disturbance nor mood disorder nor recent psychosocial stressors Objective: There were no vitals taken for this visit. Appearance: Well appearing, alert, in no acute distress, well-hydrated, well nourished. Communication: Able to speak and communicates clearly Head/Face: normocephalic, no masses, lesions, tenderness or abnormalities Facial nerve: Normal 1/6 bilaterally Skin: no skin lesions or scarring on face Ophthlamic: Full ocular motility intact; pupils symmetric Ears: AD EAC clean without excess cerumen, TM normal with full light reflex and no loss of landmarks, middle ear without visible defects. EAC clean without excess cerumen, TM normal with full light reflex and no loss of landmarks, middle ear without visible defects. Laverne Esposito AD 256 = + + 512 = + + 1024 = + + Nose: external exam with straight profile Oral Cavity: dentition fair, pain with jaw protrusion on opening. Oropharynx: Uvula hangs midline; mucosa is pink and moist; tonsils present Neck: No cervical or supraclavicular lymphadenopathy and Normal thyroid Neuro/Psych.: Alert and oriented - no nystagmus Cranial nervesIII, IV, : EOM normal VII: Normal strength in all divisions IX, X: Normal voice, platal elevation and sensation XII: Tongue mobility normal Gait: normal for age Tandem gait: deferred due to foot injury Romberg: deferred due to foot injury Eye movements: full in all gaze positions, no nystagmus Roland-Halpike with light-headedness, but no vertigo, no torsional nystagmus Data Review: Audio: Vestibular testing battery/VNG: CT: MRI: MRI cervical spine report notable for MINIMAL DEGENERATIVE DISC DISEASE DETAILED ABOVE. NORMAL APPEARANCE OF THE BRAIN STEM AND CERVICAL CORD.UNREMARKABLE FLEXION AND EXTENSION IMAGES. 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 Low concern of cerebrospinal fluid (CSF) leak via ear. Plan: 1. CT sinus to evaluate for sinonasal encephalocele given history concerning for CSF leak and correlation with Indiana-Danlos 2. Patient will was instructed on BPPV and will perform Cari Maneuver at home prior to pursuing vestibular physical therapy given history of hyper flexibility, possibility of injury. Tien Torres MD, MPH In service of MD Tien Dejesus MD 08/09/2018 5:01 PM Signed [email or web address] Benign Paroxysmal Positional Vertigo What is BPPV? Benign Paroxysmal Positional Vertigo (BPPV) is an inner ear disorder in which changes to the position of the head, such as tipping the head backward, lead to sudden vertigo -- a feeling that the room is spinning. Vertigo can vary in intensity from mild to severe and usually lasts only a few minutes. It may be accompanied by other symptoms, including dizziness, lightheadedness, a sense of imbalance, nausea, and vomiting. Anatomy of the right inner ear. Particle repositioning therapy moves the otoconia out of the semicircular canals and into the utricle where they dissolve naturally. BPPV is not a sign of a serious problem, and it usually disappears on its own within 6 weeks of the first episode. However, the symptoms of BPPV can be very frightening and may be dangerous, especially in older individuals. The unsteadiness associated with BPPV can lead to falls. About half of all people over age 65 experience an episode of BPPV, and falls are a leading cause of fractures in this age-range. What causes BPPV? BPPV develops when calcium carbonate crystals, which are known as otoconia, shift into and become trapped within the semicircular canals (one of the vestibular organs of the inner ear that controls balance). The otoconia make up a normal part of the structure of the utricle, a vestibular organ next to the semicircular canals. (see illustration) In the utricle, the otoconia may be loosened as a result of injury, infection, or age, and they land in a sac -- the utricle -- where they are naturally dissolved. However, otoconia in the semicircular canals will not dissolve. As a person?s head position changes, the otoconia begin to roll around and push on the tiny hairs that line the semicircular canals. Those hairs act as sensors to give the brain information about balance. Vertigo develops when the hairs are stimulated by the rolling otoconia. What head positions trigger BPPV? Movements that can trigger an episode of BPPV include rolling over or sitting up in bed, bending the head forward to look down, or tipping the head backward. In most people, only a single ear is affected by BPPV, although both ears may be involved on occasion. How is BPPV diagnosed and treated? With advances in medical technology, BPPV can easily be diagnosed and treated. The diagnosis can usually be made in the office based on medical history and a physical exam. Treatment also involves a short, simple in- office procedure known as the particle repositioning maneuver. (See the illustrations and [id number] instructions on the last page.) How successful is the treatment? A single particle repositioning procedure is effective in treating about 80% to 90% of cases of BPPV. Additional exercise or repositioning maneuvers may be needed if symptoms persist. Can BPPV recur? If so, what can I do? A new episode of BPPV can develop after successful treatment -- on average there is a 15% rate of recurrence each year. However, it may be possible to treat recurrent BPPV at home by performing a series of movements at the time an episode occurs. Patients will receive information on ways to handle recurrences on their own or they can work with a physical therapist to develop a plan. In general, if you wake up with positional vertigo, slowly move into the dwtt-qub-hhrz position and wait for a minute. Next, slowly move into a face-down position and slide to the foot of the bed. Keep your head down until you reach the end of the bed and are kneeling or standing on the floor. Slowly bring your head backward into an upright position. Hold on to the bed at all times. Another method is to sit toward the foot of the bed, leaving enough room to lay back with your head resting comfortably at the end of the bed, slightly extended. Be careful not to overextend your neck, as this may aggravate existing neck problems. If your symptoms are severe, you may need assistance to complete the maneuver. Follow the same steps as described in the boxed instructions on the next page. Without treatment, the symptoms of BPPV may worsen. However, with time, the otoconia dissolve on their own, which is usually within 6 weeks. Until the time the otoconia dissolve on their own, the number and severity of episodes may be reduced simply by paying careful attention to head position. In addition, anti-motion sickness drugs can be given to control nausea. However, before drugs are taken, it is usually best to try the particle repositioning procedure first. It is a very safe and rapid way to relieve symptoms and reduce the chance for falls. Medications should not be taken for a long period of time. BPPV: Glossary of Terms Semicircular canals: These structures act like a gyroscope, with canals positioned in three dimensions -- upward, downward, and horizontal. Together, the canals send signals to the brain about the rotation/positioning of the head (for example, when you bend over or spin around.) Cupula: Detects the flow of fluid within the semicircular canals. The flow of fluid gives the body a sense of motion. Utricle: An organ located in the inner ear that helps control balance. The utricle contains hair cells, which are covered with otoconia. The otoconia sway with gravity, sending signals to the brain about the position of the head and body (upright, tilted, etc). Otoconia: The tiny calcium crystal particles that become dislodged from within the utricle (where they can dissolve) and move into the semicircular canals (where they can?t dissolve). Cochlea: The 'snail-shell' sense organ of the inner ear that translates sound into nerve impulses and sent to the brain. ? Copyright 3534-6750 [facility]. All rights reserved. 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 CHOLECALCIFEROL (VITAMIN D3) * Take 5,000 Units by mouth onc* CYANOCOBALAMIN (VIT B-12) 2,5* Dissolve under the tongue. LACTOBACILLUS ACIDOPHILUS 10 * Take by mouth. 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 It band syndrome, left [M76.32] INVALID FOR* More... Other instructions from your clinician: [email or web address] Benign Paroxysmal Positional Vertigo What is BPPV? Benign Paroxysmal Positional Vertigo (BPPV) is an inner ear disorder in which changes to the position of the head, such as tipping the head backward, lead to sudden vertigo -- a feeling that the room is spinning. Vertigo can vary in intensity from mild to severe and usually lasts only a few minutes. It may be accompanied by other symptoms, including dizziness, lightheadedness, a sense of imbalance, nausea, and vomiting. Anatomy of the right inner ear. Particle repositioning therapy moves the otoconia out of the semicircular canals and into the utricle where they dissolve naturally. BPPV is not a sign of a serious problem, and it usually disappears on its own within 6 weeks of the first episode. However, the symptoms of BPPV can be very frightening and may be dangerous, especially in older individuals. The unsteadiness associated with BPPV can lead to falls. About half of all people over age 65 experience an episode of BPPV, and falls are a leading cause of fractures in this age-range. What causes BPPV? BPPV develops when calcium carbonate crystals, which are known as otoconia, shift into and become trapped within the semicircular canals (one of the vestibular organs of the inner ear that controls balance). The otoconia make up a normal part of the structure of the utricle, a vestibular organ next to the semicircular canals. (see illustration) In the utricle, the otoconia may be loosened as a result of injury, infection, or age, and they land in a sac -- the utricle -- where they are naturally dissolved. However, otoconia in the semicircular canals will not dissolve. As a person?s head position changes, the otoconia begin to roll around and push on the tiny hairs that line the semicircular canals. Those hairs act as sensors to give the brain information about balance. Vertigo develops when the hairs are stimulated by the rolling otoconia. What head positions trigger BPPV? Movements that can trigger an episode of BPPV include rolling over or sitting up in bed, bending the head forward to look down, or tipping the head backward. In most people, only a single ear is affected by BPPV, although both ears may be involved on occasion. How is BPPV diagnosed and treated? With advances in medical technology, BPPV can easily be diagnosed and treated. The diagnosis can usually be made in the office based on medical history and a physical exam. Treatment also involves a short, simple in-office procedure known as the particle repositioning maneuver. (See the illustrations and hurh-tc-whiw instructions on the last page.) How successful is the treatment? A single particle repositioning procedure is effective in treating about 80% to 90% of cases of BPPV. Additional exercise or repositioning maneuvers may be needed if symptoms persist. Can BPPV recur? If so, what can I do? A new episode of BPPV can develop after successful treatment -- on average there is a 15% rate of recurrence each year. However, it may be possible to treat recurrent BPPV at home by performing a series of movements at the time an episode occurs. Patients will receive information on ways to handle recurrences on their own or they can work with a physical therapist to develop a plan. In general, if you wake up with positional vertigo, slowly move into the yohu-whs-zwqc position and wait for a minute. Next, slowly move into a face-down position and slide to the foot of the bed. Keep your head down until you reach the end of the bed and are kneeling or standing on the floor. Slowly bring your head backward into an upright position. Hold on to the bed at all times. Another method is to sit toward the foot of the bed, leaving enough room to lay back with your head resting comfortably at the end of the bed, slightly extended. Be careful not to overextend your neck, as this may aggravate existing neck problems. If your symptoms are severe, you may need assistance to complete the maneuver. Follow the same steps as described in the boxed instructions on the next page. Without treatment, the symptoms of BPPV may worsen. However, with time, the otoconia dissolve on their own, which is usually within 6 weeks. Until the time the otoconia dissolve on their own, the number and severity of episodes may be reduced simply by paying careful attention to head position. In addition, anti-motion sickness drugs can be given to control nausea. However, before drugs are taken, it is usually best to try the particle repositioning procedure first. It is a very safe and rapid way to relieve symptoms and reduce the chance for falls. Medications should not be taken for a long period of time. BPPV: Glossary of Terms Semicircular canals: These structures act like a gyroscope, with canals positioned in three dimensions -- upward, downward, and horizontal. Together, the canals send signals to the brain about the rotation/positioning of the head (for example, when you bend over or spin around.) Cupula: Detects the flow of fluid within the semicircular canals. The flow of fluid gives the body a sense of motion. Utricle: An organ located in the inner ear that helps control balance. The utricle contains hair cells, which are covered with otoconia. The otoconia sway with gravity, sending signals to the brain about the position of the head and body (upright, tilted, etc). Otoconia: The tiny calcium crystal particles that become dislodged from within the utricle (where they can dissolve) and move into the semicircular canals (where they can?t dissolve). Cochlea: The 'snail-shell' sense organ of the inner ear that translates sound into nerve impulses and sent to the brain. ? Copyright 5089-0550 [facility]. All rights reserved. Follow-up and Disposition History Recorded Encounter Status:Closed by BRISA VEGA MD on 08/30/18 CNCO Observed: 08/09/2018 Status: COMPLETED Source: [place] 12:00 AM [facility] REPOSITORY Letter Text Dear Linda Amin: Thank you for your recent request to activate your [facility] [employer]? account. The following information will be necessary to access your account for the first time: Your custom, enr-[id number] activation code: [email or web address] 1. Please visit [email or web address] 2. Click on the [employer]? Activate Your Account button to establish your account. 3. A Please Identify Yourself page will present: You must input the activation code given to you exactly as it appears in the letter. You will be asked for the last four digits of your Social Security Number. Please put in four zeros (0000), unless you have a [place] Social Security Number registered at [facility]. If so, input the last four digits of your SSN. Enter your date of in this format: MM/DD/YYYY 4. Once you have correctly input the information you will be asked to create your own unique [employer] ID and password: When selecting your [employer] ID, please don?t use the activation code you initially received. For your security and ease of use, we recommend choosing a [employer] ID and password that will be easy for you to use, but impossible for anyone else to guess. PLEASE RECORD ON NEXT PAGE. When creating your password it cannot be the same as your ID. It must be between 7-12 characters and contain letters and at least 1 number. PLEASE RECORD ON NEXT PAGE IF DESIRED. We have also created several options for you to pick a security question that will assist you in the event you forget your password the next time you log-on. 5. Verify or enter a current E-Mail Address. 6. Click on the Sign In button. 7. Read the Terms and Conditions: To continue click the Accept button to agree with the Terms and Conditions. Terms and Conditions will display each time you log on to [employer] unless you Check the box marked please do not show this page next time. We hope you enjoy using [employer]?! Kindest regards, The [facility] MyChart Team CONFIDENTIAL PLEASE RETAIN FOR YOUR RECORDS Linda Amin To access [employer], log in at [email or web address] or [email or web address] You will need to enter your MyChart ID and password to view your [employer] record. Your [employer] ID: (PLEASE RECORD) Your [employer] password: Social Security Number: Please enter [phone] (unless you have a [place] Social Security Number registered at [facility]. If so, input the last four digits of your SSN). If you need assistance, please call and have this information available. MRI LUMBAR SPINE WO Observed: 08/01/2018 Status: F Source: [place] 8:49 PM [facility] REPOSITORY * * *Final Report* * * DATE OF EXAM: Aug 01 2018 8:49PM QBM 0303 - MRI LUMBAR SPINE WO IVCON / PROCEDURE REASON: multiple diagnoses * * * * Physician Interpretation * * * * COMPARISONS: None. HISTORY: Chronic low back pain radiating to bilateral lower extremity. TECHNIQUE: MRI lumbar spine without contrast. MQ: [id number] RESULT: Counting reference: For purposes of dictation inferior most lumbar intervertebral disk is taken as L5-S1 and prior to surgery correlate with plain radiograph. No structural anomalies. MRI LUMBAR SPINE: Normal alignment, vertebral height, marrow signal, canal, thecal sac, cord signal/caliber and cauda equina. No fracture or dislocation. Normal soft tissue planes. Patent flow voids. Intervertebral disks are normal in height and signal. L1 -- 2: Patent central canal. Patent bilateral neural foramina. L2 -- 3: Patent central canal. Patent bilateral neural foramina. L3 -- 4: Patent central canal. Patent bilateral neural foramina. L4 -- 5: Patent central canal. Patent bilateral neural foramina. L5 -- S1: Patent central canal. Patent bilateral neural foramina. IMPRESSION: Normal MRI lumbar spine. Anatomic variant: None. L4-5 is considered level of iliac crest. Assume 5 lumbar-type vertebrae. Brim Buster: PSCLinda Transcribe Date/Time: Aug 01 2018 11:37P Dictated by : DISHA LAUGHLIN MD This examination was interpreted and the report reviewed and electronically signed by: DISHA LAUGHLIN MD on Aug 01 2018 11:39PM EST [id number] Observed: 08/01/2018 Status: COMPLETED Source: [place] 8:36 PM [facility] [place] REPOSITORY HNO ID: [id number] Author: Charley (Rt) Bobby Carrera Service: Radiology Author Type: Prisoner Classification Interviewer Type: Progress Notes Filed: 08/01/2018 8:37 PM Note Text: Radiology Service Progress Note PATIENT NAME: Linda Amin DATE OF SERVICE: August 01, 2018 TIME: 8:36 PM PATIENT IDENTITY VERIFICATION COMPLETED USING TWO (2) METHODS: Patient confirmed name verbally, ID Band and Date of . PATIENT GENDER DATA: Female. status: : No status: NO. PATIENT RELEVANT IMPLANT DATA REVIEWED: Yes REVEAL LINQ LNQ11 LOOP RECORDER 3T 2,500G/CM FULL BODY ELIGABLE STAYED IN NORMAL MODE RADIOLOGY DEPARTMENT: MR; Exam(s) Completed: Spine: Lumbar spine PERIPHERAL IV DATA: Not applicable SIGNED BY: Charley MINAYA RT August 01, 2018 8:36 PM ORTHOPEDIC VISIT Observed: 07/19/2018 Status: F Source: [place] REPORT 2:24 PM [facility] [place] REPOSITORY [facility] Orthopaedics AND Sports Medicine [address] [place] [address] OFFICE VISIT Date of Service: 07/19/18 MR#: [id number] Acct: [id number] Name: LINDA AMIN Rep #: [id number] : 1975 Provider: Celine Sampson DO Age/Sex: 43/F Location: [facility] [place] [place] Status: Signed Intake Intake Visit Reasons: LEFT KNEE Is patient in pain?: Yes Allergies codeine Allergy (Unknown, Verified 07/19/18 12:53) tachycardia, syncope Medications Cyanocobalamin (Vitamin B-12) [B-12] 5,000 mcg PO DAILY 05/30/15 [History Confirmed 05/01/18] Magnesium Oxide [Magnesium] 400 mg PO QHS 05/30/15 [History Confirmed 05/01/18] Ascorbic Acid [Vitamin C] 1,000 mg PO QHS 10/21/16 [History Confirmed 05/01/18] cholecalciferol (vitamin D3) 2,000 unit capsule 2,000 unit PO QDAY cap 10/04/17 [History Confirmed 05/01/18] lactobacillus combination no.8 3 billion cell capsule 3,000 mmu cells PO QDAY 10/08/17 [History Confirmed 05/01/18] metoprolol succinate ER 100 mg tablet,extended release 24 hr 100 mg PO QDAY #90 tab 04/15/18 [Rx Confirmed 05/01/18] PFSH Medical History Premature ventricular contraction (Chronic) Syncope (Chronic) Supraventricular tachycardia (Chronic) Anemia (Acute) Diverticulitis (Acute) Fibromyalgia (Acute) IBS (irritable bowel syndrome) (Acute) Seizure (Acute) TIA (transient ischemic attack) (Acute) Recurrent syncope (Inactive) Sinus tachycardia (Inactive) Status post ablation for SVT (Inactive) Surgical History Status post placement of implantable loop recorder (Acute 03/28/18) History of cholecystectomy (Resolved) History of shoulder surgery (Resolved) S/P foot surgery, left (Resolved) Status post ablation of ventricular arrhythmia (Resolved 04/14/13) Family History Mother Diabetes CAD (coronary artery disease) CVA (cerebral vascular accident) Myocardial infarction Father Hypertension CVA (cerebral vascular accident) CHF (congestive heart failure) Social History Smoking Status: Never smoker alcohol intake: never HPI LEFT KNEE: Details: LINDA AMIN is a 43 year old F here today for left knee pain. She has had knee pain since last year with no known injury. Patient complains of pain over her entire knee. Patient states that her IT band attached to high due to scar tissue and she has been working on physical therapy since September. Patient has popping and clicking in her knee. She sates that her knee hyperextensed often and she has a tilting session in her knee. She has swelling around the front of her knee. Patient states that she has increased pain with stairs, sit to stand and most ADLs. Patient feels like she has to use her arms to lift her leg at times. She states that she did plant and twisted a few days ago. Patient notes that she has knee instability and has falling. She denies any xrays, MRI, or injection. She wears a knee brace which is somewhat helpful. ROS Const Reports system reviewed and no additional complaints, except as docu Eyes Reports system reviewed and no additional complaints, except as docu ENT Reports system reviewed and no additional complaints, except as docu Card Reports system reviewed and no additional complaints, except as docu Resp Reports system reviewed and no additional complaints, except as docu GI Reports system reviewed and no additional complaints, except as docu Reports system reviewed and no additional complaints, except as docu Musc Reports joint pain, Reports joint swelling Skin/Breast Reports system reviewed and no additional complaints, except as docu Neuro Yes system reviewed and no additional complaints, except as docu Psych Reports system reviewed and no additional complaints, except as docu Endo Reports system reviewed and no additional complaints, except as docu Ortho Exam Left Knee Skin/Wound: Yes CDI Contralateral Normal: Yes Swelling: No Knee ROM: Yes ROM-Extension -20 to 0, Yes ROM-Flexion 0-140 Examination: No Lat jt line tenderness, No med jt line tenderness, No Pain with flexion, No TTP inf pole patella, No Felicia's Test Apprehension with Lateral Translation: No Assessment AND Plan 1. Strain of left hamstring muscle, initial encounter S76.122A Plan pain with hamstring provocative maneuvers, no intraarticular swelling or pain noted. maybe questionable fullness of hamstrings from strain, no palpable nodule or mass noted or retracted tendon palpated. will follow. if not better in MRI will get mri to [facility] evaluate. X-rays were reviewed. There is no obvious fracture, dislocation, or lucency noted. She has posterior swelling but no palpable Bakers cyst, pain with resisted knee flexion and ttp lateral insertion. Her treatment options are PT with ultrasound and supportive hinged brace when active. Follow up as needed or sooner if pain, swelling, numbness or associated symptoms, or concerns develop. All questions answered. Patient in agreement of plan. Plan Detail Other Orders Orders: Coding Level of Care Code Off vis,est,level 4 Diagnoses Strain of left hamstring muscle, initial encounter S76.446T Encounter type: initial encounter 07/19/18 1424 <Electronically signed by Celine Sampson DO> Date Celine Sampson DO Cosigner Signature: Date (if applicable) CC: KNEE 4 OR MORE Observed: 07/19/2018 Status: F Source: [place] VIEWS 1:04 PM [facility] REPOSITORY [facility] Imaging Services [address] [place] [address] Knee 4 or More Views MR#: [id number] Acct: [id number] Name: LINDA AMIN Rep #: [id number] : 1975 F 43 From: Juan Dias MD PCP: Mane Lindquist DO Status: REG CLI Study: Knee 4 or More Views Date of Exam: 07/19/18 Exam# [id number] Ordering Dr: Celine Sampson DO STUDY: X-RAY - LEFT KNEE REASON FOR EXAM: Chronic pain. TECHNIQUE: 4 view(s) of the knee. COMPARISON: None. FINDINGS: Normal visualized distal femur. Normal visualized proximal tibia and fibula. Normal proximal tibiofibular articulation. Normal medial femorotibial compartment. Normal lateral femorotibial compartment. Normal patellofemoral articulation. The soft tissue structures are unremarkable. RAD/Knee 4 or More Views IMPRESSION: Normal x-ray examination of the left knee. Electronically Signed: Juan Dias MD at 9:18 EST Tel , Service support , CC: Celine Sampson DO; Mane Lindquist DO Brim Buster: Signed PACEMAKER CHECK Observed: 07/13/2018 Status: F Source: [place] 6:01 PM [facility] REPOSITORY [facility] [address] [place] [address] Pacemaker Check Date of Service: 07/13/181752 MR#: [id number] Acct: [id number] Name: LINDA AMIN Rep #: [id number] : 1975 From: Lupe Morse Age/Sex: 43/F Location: [facility] [place] Status: Signed Billing Codes ILR Device Interrogate: Yes 07/13/181753 <Electronically signed by Lupe Morse > Date Lupe Morse 07/13/181800<Electronically signed by Ebenezer Durham MD> Cosigner Signature: Date (if applicable) Ebenezer Durham MD CC: PROGRESS Observed: 06/09/2018 Status: COMPLETED Source: [place] 3:23 PM [facility] [place] REPOSITORY O ID: [id number] Author: Jesus Villareal Service: (none) Author Type: Physician Type: Progress Notes Filed: 06/09/2018 5:16 PM Note Text: 42 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 Brief relief with prolo#2 again then gradually returned again. Patient is s/p Ultrasound guided Prolotherapy injections for left SI joint on 04/29/18 with good pain relief for > 2 weeks and is now here for repeat. PAIN EVALUATION 06/09/2018 Pain Score: 3 Pain Location: Back-Lower Description: Aching Duration Amount of Time: - years Duration Units: Years Frequency: Continuous Intervention: Medication Comments: n/a Avg day pain in -04/22 Same constant achy burning pain mostly left but sometimes right, with radiation to the thigh and rarely past the knee. The pain increases with prolonged walking and prolonged positions with lying and turning in bed, and is relieved by change in position but nothing really helps. Has been off r NSAIDs now, prescription NSAIDs did not help much more. Recall, LBP - ?SI joint. Had horrible sacral pain with pregnancies - never really resolved but much worse x 2yrs without injury. Also chronic neck and shoulder pain, less of a concern. Says has separate ongoing left knee pain also may be from IT band laterally, but one pain localizes more to the knee feels unstable and gives out She reports no fevers, chills, sweats, night pain, weight loss or cancer history , no change in bladder and bowel function - better since sling, some IBS symptoms but can control. Pertinent Physical Exam (see remainder below): MSK: Lumbar Spine: Mildly reduced ROM pain limited in extension to about 10?, flexion is near full lateral bending is painful on both sides pain in extension for the most part. Left greater than right SI joint is tender to palpation, no pelvic tilt, SI joint maneuvers are nonspecific?Venita test causes a large pop in the hip, this was painful diffusely, but mostly negative as far as the sacrum and goes. Thigh thrust positive spring test positive . Str Leg Raise negative, hip provocative maneuvers otherwise negative but trochanter is tender, IT band is tender more distally Neuro: Normal strength, bulk and tone of lower limbs bilaterally, Reflexes 1+ bilaterally IMPRESSION: Left sacroiliitis, cannot exclude lumbar disc bulge or facet pain as well. 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 UNIVERSAL PROTOCOL / SAFETY CHECKLIST Sign in Communication: Completed Time Out: Team Confirms the Correct Patient, Correct Procedure, Correct Site and Site Marking, Correct Position (if applicable), Prep and Dry Time (if applicable). Time: 3:25 PM Affirmation of Time Out: YES Sign Out Discussion: Completed if applicable The procedure was carried out under sterile prep with sterile gel. A 27 ga 1AND1/4in needle was introduced and advanced with ultrasound guidance for skin anesthesia with 3 cc of 1% lidocaine. Then, again with real time ultrasound guidance, a 20 gauge 3.5 in needle was advanced to sacroiliac ligament Sergo Points A and B from medial to lateral then C and D from inferior to superior with one needle insertion each. Following negative aspiration, of 4 cc of 2% lidocaine, 8cc of normal saline, and 8 cc of dextrose 50% divided evenly among all of the above points. Ultrasound interpretation was performed prior to the procedure to identify the target and any adjacent neurovascular structures. Subsequently, interpretation was performed during real-time needle guidance confirming placement. Post-intervention interpretation was also performed confirming appropriate injectate flow and hemostasis. The patient tolerated the procedure without complication and was instructed in post-procedure precautions. - order SI belt and wear more regularly. - Continue PT home program but she like to minimize visits because of 24 yearly maximum. - f/u pending above, call for MRI lumbar if not improving ~1mo Did discuss alternative of vs LBB/RFA (ordered for Dr Alvarez)., - OFF NSAIDs, now, may alternate with Tylenol for better relief. Diagnoses and plan discussed with the patient, patient educated on above diagnoses and treatments, including alternatives Dr. Jesus Villareal SUPPORTING DOCUMENTATION (remaining history, exam, other findings): Work-up reviewed - this has included MRI hip 2009 - , doesn't show SI joint. [facility] xray 2017 - reviewed CT abd re: pelvis that showed SI joint deg changes Treatment has included Left glut ITB trigger point injection Dr Diggs 10/28/17 Helped ~30-40%, at least could lie on side better. Left SI joint injection 12/14/17 gave ~50% relief for a few weeks Prolotherapy injections for left SI joint MEDICATIONS: Current Outpatient Prescriptions: cholecalciferol (VITAMIN D-3) 5,000 unit tab Take 5,000 Units by mouth once daily. Disp: Rfl: metoprolol succinate ER (TOPROL XL) 100 mg Tb24 Take 1 tablet by mouth once daily. Disp: Rfl: ascorbic acid, vitamin C, (VITAMIN C) 500 mg tablet Take 500 mg by mouth once daily. Disp: Rfl: CALCIUM CARBONATE (CALCIUM 600 ORAL) Take by mouth. Disp: Rfl: magnesium oxide (MAG-OX) 400 mg tablet Take 400 mg by mouth once daily. Disp: Rfl: Cyanocobalamin 2,500 mcg subl Dissolve under the tongue. Disp: Rfl: No current facility-administered medications for this visit. 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 Mental Status: Pleasant, alert, oriented to person, place and time. Respiratory: Breathing unlabored without wheezing or coughing. 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 Brief relief with prolo#2 again then gradually returned again. Patient is s/p Ultrasound guided Prolotherapy injections for left SI joint on 04/29/18 with good pain relief for > 2 weeks and is now here for repeat. PAIN EVALUATION 06/09/2018 Pain Score: 3 Pain Location: Back-Lower Description: Aching Duration Amount of Time: - years Duration Units: Years Frequency: Continuous Intervention: Medication Comments: n/a Avg day pain in -04/22 Same constant achy burning pain mostly left but sometimes right, with radiation to the thigh and rarely past the knee. The pain increases with prolonged walking and prolonged positions with lying and turning in bed, and is relieved by change in position but nothing really helps. Has been off r NSAIDs now, prescription NSAIDs did not help much more. Recall, LBP - ?SI joint. Had horrible sacral pain with pregnancies - never really resolved but much worse x 2yrs without injury. Also chronic neck and shoulder pain, less of a concern. Says has separate ongoing left knee pain also may be from IT band laterally, but one pain localizes more to the knee feels unstable and gives out She reports no fevers, chills, sweats, night pain, weight loss or cancer history , no change in bladder and bowel function - better since sling, some IBS symptoms but can control. Pertinent Physical Exam (see remainder below): MSK: Lumbar Spine: Mildly reduced ROM pain limited in extension to about 10?, flexion is near full lateral bending is painful on both sides pain in extension for the most part. Left greater than right SI joint is tender to palpation, no pelvic tilt, SI joint maneuvers are nonspecific?Venita test causes a large pop in the hip, this was painful diffusely, but mostly negative as far as the sacrum and goes. Thigh thrust positive spring test positive . Str Leg Raise negative, hip provocative maneuvers otherwise negative but trochanter is tender, IT band is tender more distally Neuro: Normal strength, bulk and tone of lower limbs bilaterally, Reflexes 1+ bilaterally IMPRESSION: Left sacroiliitis, cannot exclude lumbar disc bulge or facet pain as well. 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 UNIVERSAL PROTOCOL / SAFETY CHECKLIST Sign in Communication: Completed Time Out: Team Confirms the Correct Patient, Correct Procedure, Correct Site and Site Marking, Correct Position (if applicable), Prep and Dry Time (if applicable). Time: 3:25 PM Affirmation of Time Out: YES Sign Out Discussion: Completed if applicable The procedure was carried out under sterile prep with sterile gel. A 27 ga 1AND1/4in needle was introduced and advanced with ultrasound guidance for skin anesthesia with 3 cc of 1% lidocaine. Then, again with real time ultrasound guidance, a 20 gauge 3.5 in needle was advanced to sacroiliac ligament Sergo Points A and B from medial to lateral then C and D from inferior to superior with one needle insertion each. Following negative aspiration, of 4 cc of 2% lidocaine, 8cc of normal saline, and 8 cc of dextrose 50% divided evenly among all of the above points. Ultrasound interpretation was performed prior to the procedure to identify the target and any adjacent neurovascular structures. Subsequently, interpretation was performed during real-time needle guidance confirming placement. Post-intervention interpretation was also performed confirming appropriate injectate flow and hemostasis. The patient tolerated the procedure without complication and was instructed in post-procedure precautions. - order SI belt and wear more regularly. - Continue PT home program but she like to minimize visits because of 24 yearly maximum. - f/u pending above, call for MRI lumbar if not improving ~1mo Did discuss alternative of vs LBB/RFA (ordered for Dr Alvarez)., - OFF NSAIDs, now, may alternate with Tylenol for better relief. Diagnoses and plan discussed with the patient, patient educated on above diagnoses and treatments, including alternatives Dr. Jesus Villareal SUPPORTING DOCUMENTATION (remaining history, exam, other findings): Work-up reviewed - this has included MRI hip 2009 - , doesn't show SI joint. [facility] xray 2018 - reviewed CT abd re: pelvis that showed SI joint deg changes Treatment has included Left glut ITB trigger point injection Dr Diggs 10/28/17 Helped ~30-40%, at least could lie on side better. Left SI joint injection 12/14/17 gave ~50% relief for a few weeks Prolotherapy injections for left SI joint MEDICATIONS: Current Outpatient Prescriptions: cholecalciferol (VITAMIN D-3) 5,000 unit tab Take 5,000 Units by mouth once daily. Disp: Rfl: metoprolol succinate ER (TOPROL XL) 100 mg Tb24 Take 1 tablet by mouth once daily. Disp: Rfl: ascorbic acid, vitamin C, (VITAMIN C) 500 mg tablet Take 500 mg by mouth once daily. Disp: Rfl: CALCIUM CARBONATE (CALCIUM 600 ORAL) Take by mouth. Disp: Rfl: magnesium oxide (MAG-OX) 400 mg tablet Take 400 mg by mouth once daily. Disp: Rfl: Cyanocobalamin 2,500 mcg subl Dissolve under the tongue. Disp: Rfl: No current facility-administered medications for this visit. 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 Mental Status: Pleasant, alert, oriented to person, place and time. Respiratory: Breathing unlabored without wheezing or coughing. Vascular: Normal peripheral pulses, no cyanosis, no lower limb edema Lymph: No LAD, no lymphedema Skin: No overlying skin lesions, rash or ecchymosis See above Referring Provider: SELF [[id number]] Allergies As of Date: 06/09/2018 Noted Allergy Reaction CODEINE 08/22/2012 11 - Vomiting Comments: fainting Date Reviewed: 06/09/2018 Reviewed by: Edu Dior - Fully Assessed Primary Visit Diagnosis:Sacroiliac joint dysfunction of left side [M53.3] Other Visit Diagnosis:Sacroiliitis (HCC) [M46.1] Order(s):US OTHER-INJECTION (POC) MCKENZIE USE ONLY [0206449] Order #: [id number]. #:[id number]: 1 CONSULT TO SPINE INTERVENTION [0172501] Order #: [id number]: 1 Prescriptions as of 06/09/2018 Sig: CHOLECALCIFEROL (VITAMIN D3) * Take 5,000 Units by mouth onc* METOPROLOL SUCCINATE ER 100 M* Take 1 tablet by mouth once d* ASCORBIC ACID (VITAMIN C) 500* Take 500 mg by mouth once angella* CALCIUM 600 ORAL Take by mouth. MAGNESIUM OXIDE 400 MG (241.3* Take 400 mg by mouth once angella* CYANOCOBALAMIN (VIT B-12) 2,5* Dissolve under the tongue. Problem List As Of Date 06/09/2018 Noted Resolved Posterior vitreous detachment of right eye [H43*INVALID FOR* Left retinal lattice degeneration [H35.412] INVALID FOR* Vitreous floaters of both eyes [H43.393] INVALID FOR* High myopia [H52.10] INVALID FOR* Presumed ocular histoplasmosis syndrome of righ*INVALID FOR* Chronic neck and back pain [M54.2, M54.9, G89.2*INVALID FOR* Radiculopathy, lumbar region [M54.16] INVALID FOR*11/26/2017 Radiculopathy, cervical region [M54.12] INVALID FOR* 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 It band syndrome, left [M76.32] INVALID FOR* More... Encounter Status:Closed by JESUS VILLAREAL MD on 06/09/18 EMERGENCY DEPARTMENT Observed: 05/01/2018 Status: F Source: [place] SUMMARY 4:39 PM [facility] REPOSITORY [facility] Medical Records Department [address] [place] [id number] Emergency Department Summary 05/01/18 1459 MR#: [id number] Acct: [id number] Name: LINDA AMIN Rep #: [id number] : 1975 43 From: Lonnie Coates DO PCP: Mane Lindquist DO Status: DEP ER - ER Visit Summary Date of Service: 05/01/18 Chief Complaint: Surgical site pain History of Present Illness: The patient is a 43 F who states that on March 29 she had a loop recorder placed. She states that everything is been going well until yesterday when she began have an itch at the surgical site. She states she went to scratch it was very painful. Now she states that the pain is worse. She tells me she cannot take anti-inflammatories. She has chronic back pain. Physical Examination: Afebrile vital signs stable At the site of the surgical incision medial aspect left breast there is a healed incision. Is mildly tender to palpation there is no significant swelling. There is no erythema around the area. 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 Patient be treated conservatively at home some heat avoidance of irritation. Should resolve. Return if worsening or concerns Impression: 1. Postoperative wound pain not infected This note was generated with [employer] software. It may contain incorrect words, spelling, and punctuation that were not noted in review of the chart prior to signing ED Disposition - Plan for ED Patient: Disposition: Home or Assisted Living Chief Complaint: Abscess Instructions: ED Post Op Pain, ED Seroma Post Op Referrals: Carter Balderrama MD [STAFF PHYSICIAN] - 3-5 Days if not improving What to do if you have Problems For any increased pain, shortness of breath, bleeding, nausea or vomiting, chest pain, or any unexpected problems, contact your Primary Care Provider. Call [facility] ([phone]) or report to the closest Emergency Room. Call 911 if necessary. 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 Patient is s/p Ultrasound guided Prolotherapy injections for left SI joint on 03/18/18 with good pain relief for > 2 weeks and is now here for repeat. PAIN EVALUATION 04/29/2018 Pain Score: 4 Pain Location: - Low Back Description: Aching Duration Amount of Time: - Since the last Visit with Dr. Villareal Frequency: Continuous Intervention: Medication Avg day pain in -04/22 Same constant achy burning pain mostly left but sometimes right, with radiation to the thigh and rarely past the knee. The pain increases with prolonged walking and prolonged positions with lying and turning in bed, and is relieved by change in position but nothing really helps. She takes [id number] NSAIDs now, prescription NSAIDs did not help much more. Recall, LBP - ?SI joint. Had horrible sacral pain with pregnancies - never really resolved but much worse x 2yrs without injury. Also chronic neck and shoulder pain, less of a concern. Says has separate ongoing left knee pain also may be from IT band laterally, but one pain localizes more to the knee feels unstable and gives out She reports no fevers, chills, sweats, night pain, weight loss or cancer history , no change in bladder and bowel function - better since sling, some IBS symptoms but can control. Pertinent Physical Exam (see remainder below): MSK: Lumbar Spine: Mildly reduced ROM pain limited in extension to about 10?, flexion is near full lateral bending is painful on both sides pain in extension for the most part. Left greater than right SI joint is tender to palpation, no pelvic tilt, SI joint maneuvers are nonspecific?Venita test causes a large pop in the hip, this was painful diffusely, but mostly negative as far as the sacrum and goes. Thigh thrust positive spring test positive . Str Leg Raise negative, hip provocative maneuvers otherwise negative but trochanter is tender, IT band is tender more distally Neuro: Normal strength, bulk and tone of lower limbs bilaterally, Reflexes 1+ bilaterally IMPRESSION: Left sacroiliitis, cannot exclude lumbar disc bulge or facet pain as well. 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 UNIVERSAL PROTOCOL / SAFETY CHECKLIST Sign in Communication: Completed Time Out: Team Confirms the Correct Patient, Correct Procedure, Correct Site and Site Marking, Correct Position (if applicable), Prep and Dry Time (if applicable). Time: 12:05 PM Affirmation of Time Out: YES Sign Out Discussion: Completed if applicable The procedure was carried out under sterile prep with sterile gel. A 27 ga 1AND1/4in needle was introduced and advanced with ultrasound guidance for skin anesthesia with 3 cc of 1% lidocaine. Then, again with real time ultrasound guidance, a 20 gauge 3.5 in needle was advanced to sacroiliac ligament Kirby Points A and B from medial to lateral then C and D from inferior to superior with one needle insertion each. Following negative aspiration, of 4 cc of 2% lidocaine, 10cc of normal saline, and 6 cc of dextrose 50% divided evenly among all of the above points. Ultrasound interpretation was performed prior to the procedure to identify the target and any adjacent neurovascular structures. Subsequently, interpretation was performed during real-time needle guidance confirming placement. Post-intervention interpretation was also performed confirming appropriate injectate flow and hemostasis. The patient tolerated the procedure without complication and was instructed in post-procedure precautions. - Continue PT home program but she like to minimize visits because of 24 yearly maximum. - f/u for repeat prolotherapy. Did discuss alternative of vs LBB/RFA SI joint injection or surgery, latter of which I would not recommend - Continue [id number] NSAIDs, may alternate with Tylenol for better relief. Diagnoses and plan discussed with the patient, patient educated on above diagnoses and treatments, including alternatives SUPERVISORY NOTE Seen with Waldo Wolf fellow, note above is joint effort in all areas. I saw and evaluated the patient. I personally obtained the low and critical portions of the history and physical exam. I reviewed the fellow's documentation and discussed the patient. I agree with the fellow's medical decision making as documented in the fellow's note, with my additions. Brief relief with prolo#1, repeated today f/u 6-8wk Dr. Jesus Villareal Cc: Dontae FYI SUPPORTING DOCUMENTATION (remaining history, exam, other findings): Work-up reviewed - this has included MRI hip 2009 - nl, doesn't show SI joint. [facility] xray 2018 - reviewed CT abd re: pelvis that showed SI joint deg changes Treatment has included Left glut ITB trigger point injection Dr Diggs 10/28/17 Helped ~30-40%, at least could lie on side better. Left SI joint injection 12/14/17 gave ~50% relief for a few weeks Prolotherapy injections for left SI joint MEDICATIONS: Current Outpatient Prescriptions: cholecalciferol (VITAMIN D-3) 5,000 unit tab Take 5,000 Units by mouth once daily. Disp: Rfl: metoprolol succinate ER (TOPROL XL) 100 mg Tb24 Take 1 tablet by mouth once daily. Disp: Rfl: ascorbic acid, vitamin C, (VITAMIN C) 500 mg tablet Take 500 mg by mouth once daily. Disp: Rfl: CALCIUM CARBONATE (CALCIUM 600 ORAL) Take by mouth. Disp: Rfl: magnesium oxide (MAG-OX) 400 mg tablet Take 400 mg by mouth once daily. Disp: Rfl: Cyanocobalamin 2,500 mcg subl Dissolve under the tongue. Disp: Rfl: No current facility-administered medications for this visit. 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 Mental Status: Pleasant, alert, oriented to person, place and time. Respiratory: Breathing unlabored without wheezing or coughing. 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 Patient is s/p Ultrasound guided Prolotherapy injections for left SI joint on 03/18/18 with good pain relief for > 2 weeks and is now here for repeat. PAIN EVALUATION 04/29/2018 Pain Score: 4 Pain Location: - Low Back Description: Aching Duration Amount of Time: - Since the last Visit with Dr. Villareal Frequency: Continuous Intervention: Medication Avg day pain in -04/22 Same constant achy burning pain mostly left but sometimes right, with radiation to the thigh and rarely past the knee. The pain increases with prolonged walking and prolonged positions with lying and turning in bed, and is relieved by change in position but nothing really helps. She takes [id number] NSAIDs now, prescription NSAIDs did not help much more. Recall, LBP - ?SI joint. Had horrible sacral pain with pregnancies - never really resolved but much worse x 2yrs without injury. Also chronic neck and shoulder pain, less of a concern. Says has separate ongoing left knee pain also may be from IT band laterally, but one pain localizes more to the knee feels unstable and gives out She reports no fevers, chills, sweats, night pain, weight loss or cancer history , no change in bladder and bowel function - better since sling, some IBS symptoms but can control. Pertinent Physical Exam (see remainder below): MSK: Lumbar Spine: Mildly reduced ROM pain limited in extension to about 10?, flexion is near full lateral bending is painful on both sides pain in extension for the most part. Left greater than right SI joint is tender to palpation, no pelvic tilt, SI joint maneuvers are nonspecific?Venita test causes a large pop in the hip, this was painful diffusely, but mostly negative as far as the sacrum and goes. Thigh thrust positive spring test positive . Str Leg Raise negative, hip provocative maneuvers otherwise negative but trochanter is tender, IT band is tender more distally Neuro: Normal strength, bulk and tone of lower limbs bilaterally, Reflexes 1+ bilaterally IMPRESSION: Left sacroiliitis, cannot exclude lumbar disc bulge or facet pain as well. 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 UNIVERSAL PROTOCOL / SAFETY CHECKLIST Sign in Communication: Completed Time Out: Team Confirms the Correct Patient, Correct Procedure, Correct Site and Site Marking, Correct Position (if applicable), Prep and Dry Time (if applicable). Time: 12:05 PM Affirmation of Time Out: YES Sign Out Discussion: Completed if applicable The procedure was carried out under sterile prep with sterile gel. A 27 ga 1AND1/4in needle was introduced and advanced with ultrasound guidance for skin anesthesia with 3 cc of 1% lidocaine. Then, again with real time ultrasound guidance, a 20 gauge 3.5 in needle was advanced to sacroiliac ligament Kirby Points A and B from medial to lateral then C and D from inferior to superior with one needle insertion each. Following negative aspiration, of 4 cc of 2% lidocaine, 10cc of normal saline, and 6 cc of dextrose 50% divided evenly among all of the above points. Ultrasound interpretation was performed prior to the procedure to identify the target and any adjacent neurovascular structures. Subsequently, interpretation was performed during real-time needle guidance confirming placement. Post-intervention interpretation was also performed confirming appropriate injectate flow and hemostasis. The patient tolerated the procedure without complication and was instructed in post-procedure precautions. - Continue PT home program but she like to minimize visits because of 24 yearly maximum. - f/u for repeat prolotherapy. Did discuss alternative of vs LBB/RFA SI joint injection or surgery, latter of which I would not recommend - Continue [id number]-[id number] NSAIDs, may alternate with Tylenol for better relief. Diagnoses and plan discussed with the patient, patient educated on above diagnoses and treatments, including alternatives SUPERVISORY NOTE Seen with M Luciano fellow, note above is joint effort in all areas. I saw and evaluated the patient. I personally obtained the low and critical portions of the history and physical exam. I reviewed the fellow's documentation and discussed the patient. I agree with the fellow's medical decision making as documented in the fellow's note, with my additions. Brief relief with prolo#1, repeated today f/u 6-8wk Dr. Jesus Villareal Cc: Dontae JO SUPPORTING DOCUMENTATION (remaining history, exam, other findings): Work-up reviewed - this has included MRI hip 2009 - , doesn't show SI joint. Scoli xray 2018 - reviewed CT abd re: pelvis that showed SI joint deg changes Treatment has included Left glut ITB trigger point injection Dr Diggs 10/28/17 Helped ~30-40%, at least could lie on side better. Left SI joint injection 12/14/17 gave ~50% relief for a few weeks Prolotherapy injections for left SI joint MEDICATIONS: Current Outpatient Prescriptions: cholecalciferol (VITAMIN D-3) 5,000 unit tab Take 5,000 Units by mouth once daily. Disp: Rfl: metoprolol succinate ER (TOPROL XL) 100 mg Tb24 Take 1 tablet by mouth once daily. Disp: Rfl: ascorbic acid, vitamin C, (VITAMIN C) 500 mg tablet Take 500 mg by mouth once daily. Disp: Rfl: CALCIUM CARBONATE (CALCIUM 600 ORAL) Take by mouth. Disp: Rfl: magnesium oxide (MAG-OX) 400 mg tablet Take 400 mg by mouth once daily. Disp: Rfl: Cyanocobalamin 2,500 mcg subl Dissolve under the tongue. Disp: Rfl: No current facility-administered medications for this visit. 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 Mental Status: Pleasant, alert, oriented to person, place and time. Respiratory: Breathing unlabored without wheezing or coughing. Vascular: Normal peripheral pulses, no cyanosis, no lower limb edema Lymph: No LAD, no lymphedema Skin: No overlying skin lesions, rash or ecchymosis See above Referring Provider: SELF [[id number]] Allergies As of Date: 04/29/2018 Noted Allergy Reaction CODEINE 08/22/2012 11 - Vomiting Comments: fainting Date Reviewed: 04/29/2018 Reviewed by: Jesus Villareal - Fully Assessed Primary Visit Diagnosis:Sacroiliitis (HCC) [M46.1] Other Visit Diagnosis:Indiana-Danlos syndrome [Q79.6] Order(s):US OTHER-INJECTION (POC) MCKENZIE USE ONLY [8622477] Order #: [id number]. #:[id number]: 1 dextrose 50 % 3 g injectionDisp: Rfl: lidocaine (PF) 20 mg/mL (2 %) 80 mg injection (XYLOCAINE)Disp: Rfl: NaCl 0.9% iv infusionDisp: Rfl: Prescriptions as of 04/29/2018 Sig: CHOLECALCIFEROL (VITAMIN D3) * Take 5,000 Units by mouth onc* METOPROLOL SUCCINATE ER 100 M* Take 1 tablet by mouth once d* ASCORBIC ACID (VITAMIN C) 500* Take 500 mg by mouth once angella* CALCIUM 600 ORAL Take by mouth. MAGNESIUM OXIDE 400 MG TABLET Take 400 mg by mouth once angella* CYANOCOBALAMIN (VIT B-12) 2,5* Dissolve under the tongue. Problem List As Of Date 04/29/2018 Noted Resolved Posterior vitreous detachment of right eye [H43*INVALID FOR* Left retinal lattice degeneration [H35.412] INVALID FOR* Vitreous floaters of both eyes [H43.393] INVALID FOR* High myopia [H52.10] INVALID FOR* Presumed ocular histoplasmosis syndrome of righ*INVALID FOR* Chronic neck and back pain [M54.2, M54.9, G89.2*INVALID FOR* Radiculopathy, lumbar region [M54.16] INVALID FOR*11/26/2017 Radiculopathy, cervical region [M54.12] INVALID FOR* 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 It band syndrome, left [M76.32] INVALID FOR* More... Prescriptions ordered this encounter Disp Refills Start End DEXTROSE 50 % IN WATER (D50W) INTRAV* 04/29/2018 04/29/2018 Route: OTHER LIDOCAINE (PF) 20 MG/ML (2 %) INJECT* 04/29/2018 04/29/2018 Route: OTHER SODIUM CHLORIDE 0.9 % INTRAVENOUS SO* 04/29/2018 04/29/2018 Route: OTHER Encounter Status:Closed by JESUS VILLAREAL MD on 04/29/18 CARDIOLOGY VISIT Observed: 03/24/2018 Status: F Source: [place] REPORT 12:53 PM [facility] REPOSITORY [facility] [place] [address] OFFICE VISIT Date of Service: 03/24/18 MR#: [id number] Acct: [id number] Name: LINDA AMIN Rep #: [id number] : 1975 Provider: PAULINO Elise Age/Sex: 43/F Location: [facility] [place] Status: Signed HPI HPI Details: LINDA AMIN, is a 43 F who presents to the office today for a cardiovascular outpatient follow-up. She has a history of vasovagal mediated syncope, premature ventricular beats, and SVT. After last office visit patient underwent a 48 hour Holter monitor that did not correlate symptoms with any arrhythmia. Due to ongoing concerns, it was recommended that she undergo a implantable loop recorder for further evaluation. Pt. denies chest, arm, or jaw discomfort. Her exercise tolerance is stable. Pt. denies symptoms of CHF. Pt. denies edema or claudication issues. Pt. denies orthopnea, PND, fever, chills, blood in urine, blood in stool, myalgia, or unexplainable fatigue. She states neck pain due to slip discs. She states feeling SOB with exertion/walking, but feels this may be related to decrease activity. She does acknowledge that her energy level is low. 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 Is patient in pain?: No Allergies codeine Allergy (Unknown, Verified 03/24/18 09:08) tachycardia, syncope Medications Cyanocobalamin (Vitamin B-12) [B-12] 5,000 mcg PO DAILY 05/30/15 [History Confirmed 03/24/18] Magnesium Oxide [Magnesium] 400 mg PO QHS 05/30/15 [History Confirmed 03/24/18] Ascorbic Acid [Vitamin C] 1,000 mg PO QHS 10/21/16 [History Confirmed 03/24/18] metoprolol succinate ER 100 mg tablet,extended release 24 hr 100 mg PO QDAY 08/20/17 [History Confirmed 03/24/18] cholecalciferol (vitamin D3) 2,000 unit capsule 2,000 unit PO QDAY cap 10/04/17 [History Confirmed 03/24/18] lactobacillus combination no.8 3 billion cell capsule 3,000 mmu cells PO QDAY 10/08/17 [History Confirmed 03/24/18] [facility] Medical History Premature ventricular contraction (Acute) Syncope (Acute) Supraventricular tachycardia (Chronic) Anemia (Acute) Diverticulitis (Acute) Fibromyalgia (Acute) IBS (irritable bowel syndrome) (Acute) Seizure (Acute) TIA (transient ischemic attack) (Acute) Recurrent syncope (Inactive) Sinus tachycardia (Inactive) Status post ablation for SVT (Inactive) Surgical History History of cholecystectomy (Resolved) History of shoulder surgery (Resolved) S/P foot surgery, left (Resolved) Status post ablation of ventricular arrhythmia (Resolved 04/14/13) Family History Mother Diabetes CAD (coronary artery disease) CVA (cerebral vascular accident) Myocardial infarction Father Hypertension CVA (cerebral vascular accident) CHF (congestive heart failure) Social History Smoking Status: Never smoker alcohol intake: never ROS Const Const: Positive for fatigue; negative for weakness, body ache, fever(s) or chills ENT ENT: Positive for dizziness Cardio Chest Pain: No Palpitations: No Edema: None Muscle aches with walking: None Resp Respiratory: Positive for SOB with activity; negative for SOB at rest, SOB orthopnea\SOB lying down or paroxysmal nocturnal dyspnea GI GI: Negative nausea, black,tarry stools, bright, red blood in stools or vomiting blood/hematemesis : Negative for hematuria or frequent nighttime urination/ nocturia Musc Musc: Positive for joint pain (neck ); negative for muscle aches/ myalgia Skin Skin: Negative non-healing lesions or rash Neuro Neuro: Positive for lightheadedness, near syncope, syncope and dizziness; negative for orthostatic symptoms or weakness Endo Endo: Positive for fatigue Allergy Allergy/Immunology: Negative for rash Cardiology Exam Const Appearance: cooperative, healthy appearing, comfortable, no acute distress, well developed and well groomed Nutritional Appearance: average body habitus Orientation: alert, awake and oriented x3 Head Head: normal to inspection, normocephalic and atraumatic Ears: hearing grossly normal bilaterally Nose: external nose normal Face and Sinus: face symmetric Mouth: oral mucosae normal Teeth and gingiva: dentition normal Eyes General: appearance normal, both eyes and all related structures Eyelids: eyelids normal Conjunctivae: conjunctivae normal Pupils: PERRL EOM: EOM intact bilaterally Neck Neck: normal visual inspection and full ROM Carotids: normal carotid upstroke Chest Chest inspection: normal inspection of the chest Auscultation: Bilateral: Clear to Auscultation Cardio Palpation: normal PMI Rate: regular rate Rhythm: regular rhythm Heart sounds: S1 normal and S2 normal GI GI: normal to inspection, soft, no hepatosplenomegaly and bowel sounds present Neuro General: alert, awake and oriented x3 Skin Skin: no rashes or lesions noted Extremities Pulses: Normal: Right Radial Pulse, Left Radial Pulse Lower Extremity Edema: None: Bilateral Psych Psychological: normal affect Supplemental Info 48 hour Holter monitor from February 2018 showed normal sinus rhythm, minimum heart rate 42 bpm, maximum heart rate 119 bpm, average heart rate is 72 bpm, rare PACs with no runs noted, rare PVCs with no runs noted, and patient symptoms of chest pain, shortness of breath, nausea, rapid heart rate, and palpitations did not correlate with scan. Echocardiogram from August 2016 showed normal biventricular size function and wall thickness, normal mitral and tricuspid valves, normal aortic and pulmonary valves, above average aortic sinus dimension and descending aortic diameter, no septal defects, normal coronary anatomy, normal predicted right ventricular pressure, and no pericardial effusion. Ejection fraction was reported at 68.7%. Assessment AND Plan 1. Vasovagal syncope R55 Plan Patient does state 2 episodes of syncope since August 2017. She did not seek medical attention after these episodes. Her recent 48-hour Holter monitor did not correlate symptoms with this scan. She will be undergoing implantation of a loop recorder for further assessment and evaluation. Orders Orders: 2. Supraventricular tachycardia I47.1 Plan Patient's most recent 48-hour Holter monitor showed episodes of PACs and PVCs. There were no runs noted. Her echocardiogram from August 2016 showed an ejection fraction of 68.7%. Her EKG in office today showed sinus rhythm at a rate of 63 bpm. She will continue current medications which include beta-christiana. We will continue to monitor this through her loop recorder. Orders Orders: 3. PVC (premature ventricular contraction) I49.3 Plan As noted above patient's 48-hour Holter monitor from February 2018 showed PVCs, but no runs noted. We will continue to follow this through her loop recorder and she will continue current medication which include beta-christiana. Orders Orders: Plan Detail Additional Comments She will keep September [address] Durham for further evaluation. Thank you for allowing us to participate in the patients plan of care, if you have any questions please do not hesitate to call. This note was generated using a voice recognition system and there may be incorrect words, spelling or punctuation that were not noted when reviewing the office note prior to saving. Coding Level of Care Code Off vis,est,level 3 Diagnoses Vasovagal syncope R55 Syncope type: vasovagal syncope Supraventricular tachycardia I47.1 PVC (premature ventricular contraction) I49.3 Coding Level of Care Code Off vis,est,level 3 Diagnoses Vasovagal syncope R55 Syncope type: vasovagal syncope Supraventricular tachycardia I47.1 PVC (premature ventricular contraction) I49.3 03/24/18 1253 <Electronically signed by Kamron ESPINOSA> Date Kamron ESPINOSA Cosigner Signature: Date (if applicable) CC: Mane Lindquist DO PACEMAKER CHECK Observed: 03/22/2018 Status: F Source: CHARITO 9:24 AM [facility] REPOSITORY [facility] [address] [place] [address] Pacemaker Check Date of Service: 03/21/18 1507 MR#: [id number] Acct: [id number] Name: LINDA AMIN Rep #: [id number] : 1975 From: Lupe Morse Age/Sex: 43/F Location: [facility] [place] Status: Signed Comments Summary Comments: ILR implant instructions, written and verbal, given to pt. All questions answered. Pt scheduled for implant on 03/28/18 @ 9:30am. Device Device Date Interviewed: 03/21/18 Follow-up Location: in office Interview Reason: scheduled follow up Billing Codes Nurse, Teaching, Wound Ck (no charge): Yes Assessment AND Plan Problems 1. Supraventricular tachycardia I47.1 2. Syncope R55 3. Premature ventricular contraction I49.3 03/21/18 1513 <Electronically signed by Lupe Morse > Date Lupe Morse 03/22/18 0924<Electronically signed by Carter Balderrama MD> Cosigner Signature: Date (if applicable) Carter Balderrama MD CC: CBC-COMPLETE BLOOD CNT Collected: 03/21/2018 Status: F Source: CHARITO NO DIFF 2:31 PM [facility] REPOSITORY TYPE CODE TESTS RESULT OUT OF RANGE REFERENCE UNITS LAB L100.1000 4.4-11.0 K/mm3 Normal WBC 7.9 LAB L100.1200 4.2-5.4 M/mm3 Normal RBC 4.58 LAB L100.1300 12.0-15.0 g/dl Normal HGB 13.9 LAB L100.1400 37-47 % Normal HCT 41.6 LAB L100.1500 81-99 fL Normal MCV 90.8 LAB L100.1600 27.0-32.0 pg Normal MCH 30.3 LAB L100.1700 32-36 g/gl Normal MCHC 33.4 LAB L100.1810 11.6-14.6 % Normal RDW CV 12.0 LAB L100.1820 35.1-43.9 fl Normal RDW SD 39.5 LAB L100.1900 150-450 K/mm3 Normal PLT 285 LAB L100.2000 6.2-12.0 fl Normal MPV 11.1 Performed By: #### L100.0500, L500.2500 #### [facility] [address] [place], [place], [id number] BASIC METABOLIC Collected: 03/21/2018 Status: F Source: [place] PROFILE (BMP) 2:31 PM [facility] REPOSITORY TYPE CODE TESTS RESULT OUT OF RANGE REFERENCE UNITS LAB L501.0100 74-106 mg/dL Low GLU 61 Result Comment: Please note revised GLUCOSE reference range effective 2017. LAB L501.1000 7-18 mg/dL Normal BUN 11 LAB L501.1100 0.55-1.02 mg/dL Normal CREAT,SERUM 0.72 Result Comment: The validity of the calculated GFR AND GFRAA in patients over 70 years has not been determined. Clinical correlation is essential. LAB L501.1110 >60 mL/min Normal EST GFR 94 Result Comment: Non- GFR Calc LAB L501.1115 >60 mL/min Normal EST GFR - AA 113 Result Comment: GFR Calc LAB L501.1300 10-20 RATIO Normal BUN/CRE 15.3 LAB L501.2200 8.5-10.1 mg/dL CA Normal 8.9 LAB L501.5300 136-145 mmol/L NA Normal 142 LAB L501.5600 3.5-5.1 mmol/L K Normal 4.1 LAB L501.5900 98-107 mmol/L CL Normal 104 LAB L501.6100 21.0-32.0 mmol/L Normal CO2 30.0 LAB L501.6200 5-15 Normal GAP 8 Performed By: #### L100.0500, L500.2500 #### [facility] [address] 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 She H/o Indiana Danlos syndrome, POTS, SVT, Right shoulder labral/capsule repair 2016/MARY, and Right foot 2nd MT reconstruction in 2016. PAIN EVALUATION 03/18/2018 Pain Score: 2 Pain Location: - Left Hip pain Description: Aching;Sore Duration Amount of Time: - Since the last Visit with Dr. Villareal Frequency: Continuous Intervention: Medication Avg day pain in -04/22 Same constant achy burning pain mostly left but sometimes right, with radiation to the thigh and rarely past the knee. The pain increases with prolonged walking and prolonged positions with lying and turning in bed, and is relieved by change in position but nothing really helps. She takes zhyp-fke-stoicnq NSAIDs now, prescription NSAIDs did not help much more. Recall, LBP - ?SI joint. Had horrible sacral pain with pregnancies - never really resolved but much worse x 2yrs without injury. Also chronic neck and shoulder pain, less of a concern. Says has separate ongoing left knee pain also may be from IT band laterally, but one pain localizes more to the knee feels unstable and gives out She reports no fevers, chills, sweats, night pain, weight loss or cancer history , no change in bladder and bowel function - better since sling, some IBS symptoms but can control. Pertinent Physical Exam (see remainder below): MSK: Lumbar Spine: Mildly reduced ROM pain limited in extension to about 10?, flexion is near full lateral bending is painful on both sides pain in extension for the most part. Left greater than right SI joint is tender to palpation, no pelvic tilt, SI joint maneuvers are nonspecific?Venita test causes a large pop in the hip, this was painful diffusely, but mostly negative as far as the sacrum and goes. Thigh thrust positive spring test positive . Str Leg Raise negative, hip provocative maneuvers otherwise negative but trochanter is tender, IT band is tender more distally Neuro: Normal strength, bulk and tone of lower limbs bilaterally, Reflexes 1+ bilaterally IMPRESSION: Left sacroiliitis, cannot exclude lumbar disc bulge or facet pain as well. Left IT band pain with minimal relief from cortisone injection, may be more peripheral sensitization or mechanical abnormality History of [place] Danlos syndrome by clinical criteria only, does have hypermobility Also chronic neck and shoulder pain?not fully evaluated today, less of a concern RECOMMENDATIONS: - Procedure: Ultrasound guided Prolotherapy injections for left SI joint The risks, benefits and anticipated outcomes of the procedure, the risks and benefits of the alternatives to the procedure, and the roles and tasks of the personnel to be involved, were discussed with the patient, and the patient consents to the procedure and agrees to proceed. UNIVERSAL PROTOCOL / SAFETY CHECKLIST Sign in Communication: Completed Time Out: Team Confirms the Correct Patient, Correct Procedure, Correct Site and Site Marking, Correct Position (if applicable), Prep and Dry Time (if applicable). Time: 11:19 AM Affirmation of Time Out: YES Sign Out Discussion: Completed if applicable The procedure was carried out under sterile prep with sterile gel. A 27 ga 1AND1/4in needle was introduced and advanced with ultrasound guidance for skin anesthesia with 3 cc of 1% lidocaine. Then, again with real time ultrasound guidance, a 20 gauge 3.5 in needle was advanced to sacroiliac ligament Kirby Points A and B from medial to lateral then C and D from inferior to superior with one needle insertion each. Following negative aspiration, of 4 cc of 2% lidocaine, 10cc of normal saline, and 6 cc of dextrose 50% divided evenly among all of the above points. Ultrasound interpretation was performed prior to the procedure to identify the target and any adjacent neurovascular structures. Subsequently, interpretation was performed during real-time needle guidance confirming placement. Post-intervention interpretation was also performed confirming appropriate injectate flow and hemostasis. The patient tolerated the procedure without complication and was instructed in post-procedure precautions. - Continue PT home program but she like to minimize visits because of 24 yearly maximum. - f/u for repeat prolotherapy Left vs ?bilateral sacroiliac joints, next available, and then probably every 6 weeks or so if improving. Did discuss alternative of vs LBB/RFA SI joint injection or surgery to lateral which I would not recommend - Continue yfll-mqe-wggujfy NSAIDs, may alternate with Tylenol for better relief. Diagnoses and plan discussed with the patient, patient educated on above diagnoses and treatments, including alternatives Jesus Villareal MD Cc: Dontae JO SUPPORTING DOCUMENTATION (remaining history, exam, other findings): Work-up reviewed - this has included MRI hip 2009 - nl, doesn't show SI joint. [facility] xray 2018 - reviewed CT abd re: pelvis that showed SI joint deg changes Treatment has included Left glut ITB trigger point injection Dr Diggs 10/28/17 Helped ~30-40%, at least could lie on side better. Left SI joint injection 12/14/17 gave ~50% relief for a few weeks MEDICATIONS: Current Outpatient Prescriptions: cholecalciferol (VITAMIN D-3) 5,000 unit tab Take 5,000 Units by mouth once daily. Disp: Rfl: metoprolol succinate ER (TOPROL XL) 100 mg Tb24 Take 1 tablet by mouth once daily. Disp: Rfl: ascorbic acid, vitamin C, (VITAMIN C) 500 mg tablet Take 500 mg by mouth once daily. Disp: Rfl: CALCIUM CARBONATE (CALCIUM 600 ORAL) Take by mouth. Disp: Rfl: magnesium oxide (MAG-OX) 400 mg tablet Take 400 mg by mouth once daily. Disp: Rfl: Cyanocobalamin 2,500 mcg subl Dissolve under the tongue. Disp: Rfl: No current facility-administered medications for this visit. 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 Mental Status: Pleasant, alert, oriented to person, place and time. Respiratory: Breathing unlabored without wheezing or coughing. 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 She H/o [place] Danlos syndrome, POTS, SVT, Right shoulder labral/capsule repair 2015/[facility], and Right foot 2nd MT reconstruction in 2015. PAIN EVALUATION 03/18/2018 Pain Score: 2 Pain Location: - Left Hip pain Description: Aching;Sore Duration Amount of Time: - Since the last Visit with Dr. Villareal Frequency: Continuous Intervention: Medication Avg day pain in -04/22 Same constant achy burning pain mostly left but sometimes right, with radiation to the thigh and rarely past the knee. The pain increases with prolonged walking and prolonged positions with lying and turning in bed, and is relieved by change in position but nothing really helps. She takes irhm-rkx-ejfylwi NSAIDs now, prescription NSAIDs did not help much more. Recall, LBP - ?SI joint. Had horrible sacral pain with pregnancies - never really resolved but much worse x 2yrs without injury. Also chronic neck and shoulder pain, less of a concern. Says has separate ongoing left knee pain also may be from IT band laterally, but one pain localizes more to the knee feels unstable and gives out She reports no fevers, chills, sweats, night pain, weight loss or cancer history , no change in bladder and bowel function - better since sling, some IBS symptoms but can control. Pertinent Physical Exam (see remainder below): MSK: Lumbar Spine: Mildly reduced ROM pain limited in extension to about 10?, flexion is near full lateral bending is painful on both sides pain in extension for the most part. Left greater than right SI joint is tender to palpation, no pelvic tilt, SI joint maneuvers are nonspecific?Venita test causes a large pop in the hip, this was painful diffusely, but mostly negative as far as the sacrum and goes. Thigh thrust positive spring test positive . Str Leg Raise negative, hip provocative maneuvers otherwise negative but trochanter is tender, IT band is tender more distally Neuro: Normal strength, bulk and tone of lower limbs bilaterally, Reflexes 1+ bilaterally IMPRESSION: Left sacroiliitis, cannot exclude lumbar disc bulge or facet pain as well. Left IT band pain with minimal relief from cortisone injection, may be more peripheral sensitization or mechanical abnormality History of [place] Danlos syndrome by clinical criteria only, does have hypermobility Also chronic neck and shoulder pain?not fully evaluated today, less of a concern RECOMMENDATIONS: - Procedure: Ultrasound guided Prolotherapy injections for left SI joint The risks, benefits and anticipated outcomes of the procedure, the risks and benefits of the alternatives to the procedure, and the roles and tasks of the personnel to be involved, were discussed with the patient, and the patient consents to the procedure and agrees to proceed. UNIVERSAL PROTOCOL / SAFETY CHECKLIST Sign in Communication: Completed Time Out: Team Confirms the Correct Patient, Correct Procedure, Correct Site and Site Marking, Correct Position (if applicable), Prep and Dry Time (if applicable). Time: 11:19 AM Affirmation of Time Out: YES Sign Out Discussion: Completed if applicable The procedure was carried out under sterile prep with sterile gel. A 27 ga 1AND1/4in needle was introduced and advanced with ultrasound guidance for skin anesthesia with 3 cc of 1% lidocaine. Then, again with real time ultrasound guidance, a 20 gauge 3.5 in needle was advanced to sacroiliac ligament Sergo Points A and B from medial to lateral then C and D from inferior to superior with one needle insertion each. Following negative aspiration, of 4 cc of 2% lidocaine, 10cc of normal saline, and 6 cc of dextrose 50% divided evenly among all of the above points. Ultrasound interpretation was performed prior to the procedure to identify the target and any adjacent neurovascular structures. Subsequently, interpretation was performed during real-time needle guidance confirming placement. Post-intervention interpretation was also performed confirming appropriate injectate flow and hemostasis. The patient tolerated the procedure without complication and was instructed in post-procedure precautions. - Continue PT home program but she like to minimize visits because of 24 yearly maximum. - f/u for repeat prolotherapy Left vs ?bilateral sacroiliac joints, next available, and then probably every 6 weeks or so if improving. Did discuss alternative of vs LBB/RFA SI joint injection or surgery to lateral which I would not recommend - Continue onyw-gpc-iayyguk NSAIDs, may alternate with Tylenol for better relief. Diagnoses and plan discussed with the patient, patient educated on above diagnoses and treatments, including alternatives Jesus Villareal MD Cc: Dontae JO SUPPORTING DOCUMENTATION (remaining history, exam, other findings): Work-up reviewed - this has included MRI hip 2009 - , doesn't show SI joint. [facility] xray 2018 - reviewed CT abd re: pelvis that showed SI joint deg changes Treatment has included Left glut ITB trigger point injection Dr Diggs 10/28/17 Helped ~30-40%, at least could lie on side better. Left SI joint injection 12/14/17 gave ~50% relief for a few weeks MEDICATIONS: Current Outpatient Prescriptions: cholecalciferol (VITAMIN D-3) 5,000 unit tab Take 5,000 Units by mouth once daily. Disp: Rfl: metoprolol succinate ER (TOPROL XL) 100 mg Tb24 Take 1 tablet by mouth once daily. Disp: Rfl: ascorbic acid, vitamin C, (VITAMIN C) 500 mg tablet Take 500 mg by mouth once daily. Disp: Rfl: CALCIUM CARBONATE (CALCIUM 600 ORAL) Take by mouth. Disp: Rfl: magnesium oxide (MAG-OX) 400 mg tablet Take 400 mg by mouth once daily. Disp: Rfl: Cyanocobalamin 2,500 mcg subl Dissolve under the tongue. Disp: Rfl: No current facility-administered medications for this visit. 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 Mental Status: Pleasant, alert, oriented to person, place and time. Respiratory: Breathing unlabored without wheezing or coughing. Vascular: Normal peripheral pulses, no cyanosis, no lower limb edema Lymph: No LAD, no lymphedema Skin: No overlying skin lesions, rash or ecchymosis See above Referring Provider: SELF [[id number]] Allergies As of Date: 03/18/2018 Noted Allergy Reaction CODEINE 08/22/2012 11 - Vomiting Comments: fainting Date Reviewed: 03/18/2018 Reviewed by: Pippa Pérez Ma - Fully Assessed Primary Visit Diagnosis:Sacroiliitis (HCC) [M46.1] Order(s):US OTHER-INJECTION (POC) MCKENZIE USE ONLY [[id number]] Order #: [id number]. #:[id number]: 1 HYDROcodone-acetaminophen (NORCO) 5-325 mg per tabletTake 1 tablet by mouth every 8 hours as needed for up to 5 days.Disp: 10 tabletRfl: 0 [] lidocaine (PF) 20 mg/mL (2 %) 80 mg injection (XYLOCAINE)Disp: Rfl: [] 0.9% NaCl 10 mLDisp: Rfl: [] dextrose 50 % 3 g injectionDisp: Rfl: Prescriptions as of 03/18/2018 Sig: HYDROCODONE 5 MG-ACETAMINOPHE* Take 1 tablet by mouth every * CHOLECALCIFEROL (VITAMIN D3) * Take 5,000 Units by mouth onc* METOPROLOL SUCCINATE ER 100 M* Take 1 tablet by mouth once d* ASCORBIC ACID (VITAMIN C) 500* Take 500 mg by mouth once angella* CALCIUM 600 ORAL Take by mouth. MAGNESIUM OXIDE 400 MG TABLET Take 400 mg by mouth once angella* CYANOCOBALAMIN (VIT B-12) 2,5* Dissolve under the tongue. Problem List As Of Date 03/18/2018 Noted Resolved Posterior vitreous detachment of right eye [H43*INVALID FOR* Left retinal lattice degeneration [H35.412] INVALID FOR* Vitreous floaters of both eyes [H43.393] INVALID FOR* High myopia [H52.10] INVALID FOR* Presumed ocular histoplasmosis syndrome of righ*INVALID FOR* Chronic neck and back pain [M54.2, M54.9, G89.2*INVALID FOR* Radiculopathy, lumbar region [M54.16] INVALID FOR*11/26/2017 Radiculopathy, cervical region [M54.12] INVALID FOR* 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 It band syndrome, left [M76.32] INVALID FOR* More... Prescriptions ordered this encounter Disp Refills Start End HYDROCODONE 5 MG-ACETAMINOPHEN 325 M* 10 t* 0 03/18/2018 03/23/2018 Class: Print RX Route: ORAL Sig: Take 1 tablet by mouth every 8 hours as needed for up to 5 days. LIDOCAINE (PF) 20 MG/ML (2 %) INJECT* 03/18/2018 03/18/2018 Route: OTHER SODIUM CHLORIDE 0.9 % INJECTION SYRI* 03/18/2018 03/18/2018 Route: OTHER DEXTROSE 50 % IN WATER (D50W) INTRAV* 03/18/2018 03/18/2018 Route: OTHER Encounter Status:Closed by JESUS VILLAREAL MD on 03/18/18 CBC-COMPLETE BLOOD CNT Collected: 03/03/2018 Status: F Source: CHARITO NO DIFF 2:47 PM [facility] REPOSITORY TYPE CODE TESTS RESULT OUT OF RANGE REFERENCE UNITS LAB L100.1000 4.4-11.0 K/mm3 Normal WBC 7.3 LAB L100.1200 4.2-5.4 M/mm3 Normal RBC 4.49 LAB L100.1300 12.0-15.0 g/dl Normal HGB 13.9 LAB L100.1400 37-47 % Normal HCT 40.8 LAB L100.1500 81-99 fL Normal MCV 90.9 LAB L100.1600 27.0-32.0 pg Normal MCH 31.0 LAB L100.1700 32-36 g/gl Normal MCHC 34.1 LAB L100.1810 11.6-14.6 % Normal RDW CV 11.9 LAB L100.1820 35.1-43.9 fl Normal RDW SD 39.0 LAB L100.1900 150-450 K/mm3 Normal PLT 289 LAB L100.2000 6.2-12.0 fl Normal MPV 11.3 Performed By: #### L100.0500, L500.2500, L501.5200 #### [facility] [place], [address] BASIC METABOLIC Collected: 03/03/2018 Status: F Source: [place]ITO PROFILE (BMP) 2:47 PM [facility] REPOSITORY TYPE CODE TESTS RESULT OUT OF RANGE REFERENCE UNITS LAB L501.0100 74-106 mg/dL Normal GLU 82 Result Comment: Please note revised GLUCOSE reference range effective 2017. LAB L501.1000 7-18 mg/dL Normal BUN 11 LAB L501.1100 0.55-1.02 mg/dL High CREAT,SERUM 1.03 Result Comment: The validity of the calculated GFR AND GFRAA in patients over 70 years has not been determined. Clinical correlation is essential. LAB L501.1110 >60 mL/min Normal EST GFR 62 Result Comment: Non- GFR Calc LAB L501.1115 >60 mL/min Normal EST GFR - AA 75 Result Comment: GFR Calc LAB L501.1300 10-20 RATIO Normal BUN/CRE 10.7 LAB L501.2200 8.5-10.1 mg/dL CA Normal 9.0 LAB L501.5300 136-145 mmol/L NA Normal 138 LAB L501.5600 3.5-5.1 mmol/L K Normal 3.9 LAB L501.5900 98-107 mmol/L CL Normal 105 LAB L501.6100 21.0-32.0 mmol/L Normal CO2 30.0 LAB L501.6200 5-15 Low GAP 3 Performed By: #### L100.0500, L500.2500, L501.5200 #### [facility] [address] [facility] [place], [address] MAGNESIUM Collected: 03/03/2018 Status: F Source: SARDIS 2:47 PM [facility] REPOSITORY TYPE CODE TESTS RESULT OUT OF RANGE REFERENCE UNITS LAB L501.5200 1.6-2.6 mg/dL Normal MG 2.1 Performed By: #### L100.0500, L500.2500, L501.5200 #### [facility] [address] 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 She H/o [place] Danlos syndrome, POTS, SVT, Right shoulder labral/capsule repair 2015/[facility], and Right foot 2nd MT reconstruction in 2015. Left SI joint injection 12/14/17 gave ~50% relief for a few weeks, now gradually worsening. Same constant achy burning pain mostly left but sometimes right, with radiation to the thigh and rarely past the knee. The pain increases with prolonged walking and prolonged positions with lying and turning in bed, and is relieved by change in position but nothing really helps. She takes qrvj-wmn-sjgbgny NSAIDs now, prescription NSAIDs did not help much more. Recall, LBP - ?SI joint. Had horrible sacral pain with pregnancies - never really resolved but much worse x 2yrs without injury. Also chronic neck and shoulder pain, less of a concern. Says has separate ongoing left knee pain also may be from IT band laterally, but one pain localizes more to the knee feels unstable and gives out She reports no fevers, chills, sweats, night pain, weight loss or cancer history , no change in bladder and bowel function - better since sling, some IBS symptoms but can control. Pertinent Physical Exam (see remainder below): MSK: Lumbar Spine: Mildly reduced ROM pain limited in extension to about 10?, flexion is near full lateral bending is painful on both sides pain in extension for the most part. Left greater than right SI joint is tender to palpation, no pelvic tilt, SI joint maneuvers are nonspecific?Venita test causes a large pop in the hip, this was painful diffusely, but mostly negative as far as the sacrum and goes. Thigh thrust positive spring test positive . Str Leg Raise negative, hip provocative maneuvers otherwise negative but trochanter is tender, IT band is tender more distally Neuro: Normal strength, bulk and tone of lower limbs bilaterally, Reflexes 1+ bilaterally IMPRESSION: Left sacroiliitis, cannot exclude lumbar disc bulge or facet pain as well. Left IT band pain with minimal relief from cortisone injection, may be more peripheral sensitization or mechanical abnormality History of [place] Danlos syndrome by clinical criteria only, does have hypermobility Also chronic neck and shoulder pain?not fully evaluated today, less of a concern RECOMMENDATIONS: - Continue PT but she like to minimize visits because of 24 yearly maximum. Suggested 1 more visit to work at home exercises and then restart after injection - f/u for prolotherapy Left vs ?bilateral sacroiliac joints, next available, and then probably every 6 weeks or so if improving. Did discuss alternative of vs LBB/RFA SI joint injection or surgery to lateral which I would not recommend - Continue mgax-lja-acwfwpa NSAIDs, may alternate with Tylenol for better relief. f/u about 2mo Diagnoses and plan discussed with the patient, patient educated on above diagnoses and treatments, including alternatives Jesus Villareal MD Cc: Dontae JO SUPPORTING DOCUMENTATION (remaining history, exam, other findings): Work-up reviewed - this has included MRI hip 2009 - , doesn't show SI joint. [facility] xray 2018 - reviewed CT abd re: pelvis that showed SI joint deg changes Treatment has included Left glut ITB trigger point injection Dr Diggs 10/28/17 Helped ~30-40%, at least could lie on side better. MEDICATIONS: Current Outpatient Prescriptions: cholecalciferol (VITAMIN D-3) 5,000 unit tab Take 5,000 Units by mouth once daily. Disp: Rfl: metoprolol succinate ER (TOPROL XL) 100 mg Tb24 Take 1 tablet by mouth once daily. Disp: Rfl: ascorbic acid, vitamin C, (VITAMIN C) 500 mg tablet Take 500 mg by mouth once daily. Disp: Rfl: CALCIUM CARBONATE (CALCIUM 600 ORAL) Take by mouth. Disp: Rfl: magnesium oxide (MAG-OX) 400 mg tablet Take 400 mg by mouth once daily. Disp: Rfl: Cyanocobalamin 2,500 mcg subl Dissolve under the tongue. Disp: Rfl: No current facility-administered medications for this visit. 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 Mental Status: Pleasant, alert, oriented to person, place and time. Respiratory: Breathing unlabored without wheezing or coughing. 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 She H/o [place] Danlos syndrome, POTS, SVT, Right shoulder labral/capsule repair 2015/MARY, and Right foot 2nd MT reconstruction in 2015. Left SI joint injection 12/14/17 gave ~50% relief for a few weeks, now gradually worsening. Same constant achy burning pain mostly left but sometimes right, with radiation to the thigh and rarely past the knee. The pain increases with prolonged walking and prolonged positions with lying and turning in bed, and is relieved by change in position but nothing really helps. She takes lmir-tsu-lujfyrg NSAIDs now, prescription NSAIDs did not help much more. Recall, LBP - ?SI joint. Had horrible sacral pain with pregnancies - never really resolved but much worse x 2yrs without injury. Also chronic neck and shoulder pain, less of a concern. Says has separate ongoing left knee pain also may be from IT band laterally, but one pain localizes more to the knee feels unstable and gives out She reports no fevers, chills, sweats, night pain, weight loss or cancer history , no change in bladder and bowel function - better since sling, some IBS symptoms but can control. Pertinent Physical Exam (see remainder below): MSK: Lumbar Spine: Mildly reduced ROM pain limited in extension to about 10?, flexion is near full lateral bending is painful on both sides pain in extension for the most part. Left greater than right SI joint is tender to palpation, no pelvic tilt, SI joint maneuvers are nonspecific?Venita test causes a large pop in the hip, this was painful diffusely, but mostly negative as far as the sacrum and goes. Thigh thrust positive spring test positive . Str Leg Raise negative, hip provocative maneuvers otherwise negative but trochanter is tender, IT band is tender more distally Neuro: Normal strength, bulk and tone of lower limbs bilaterally, Reflexes 1+ bilaterally IMPRESSION: Left sacroiliitis, cannot exclude lumbar disc bulge or facet pain as well. Left IT band pain with minimal relief from cortisone injection, may be more peripheral sensitization or mechanical abnormality History of [place] Danlos syndrome by clinical criteria only, does have hypermobility Also chronic neck and shoulder pain?not fully evaluated today, less of a concern RECOMMENDATIONS: - Continue PT but she like to minimize visits because of 24 yearly maximum. Suggested 1 more visit to work at home exercises and then restart after injection - f/u for prolotherapy Left vs ?bilateral sacroiliac joints, next available, and then probably every 6 weeks or so if improving. Did discuss alternative of vs LBB/RFA SI joint injection or surgery to lateral which I would not recommend - Continue dlqn-wkj-mccjsek NSAIDs, may alternate with Tylenol for better relief. f/u about 2mo Diagnoses and plan discussed with the patient, patient educated on above diagnoses and treatments, including alternatives Jesus Villareal MD Cc: Dontae JO SUPPORTING DOCUMENTATION (remaining history, exam, other findings): Work-up reviewed - this has included MRI hip 2009 - nl, doesn't show SI joint. Scoli xray 2018 - reviewed CT abd re: pelvis that showed SI joint deg changes Treatment has included Left glut ITB trigger point injection Dr Diggs 10/28/17 Helped ~30-40%, at least could lie on side better. MEDICATIONS: Current Outpatient Prescriptions: cholecalciferol (VITAMIN D-3) 5,000 unit tab Take 5,000 Units by mouth once daily. Disp: Rfl: metoprolol succinate ER (TOPROL XL) 100 mg Tb24 Take 1 tablet by mouth once daily. Disp: Rfl: ascorbic acid, vitamin C, (VITAMIN C) 500 mg tablet Take 500 mg by mouth once daily. Disp: Rfl: CALCIUM CARBONATE (CALCIUM 600 ORAL) Take by mouth. Disp: Rfl: magnesium oxide (MAG-OX) 400 mg tablet Take 400 mg by mouth once daily. Disp: Rfl: Cyanocobalamin 2,500 mcg subl Dissolve under the tongue. Disp: Rfl: No current facility-administered medications for this visit. 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 Mental Status: Pleasant, alert, oriented to person, place and time. Respiratory: Breathing unlabored without wheezing or coughing. Vascular: Normal peripheral pulses, no cyanosis, no lower limb edema Lymph: No LAD, no lymphedema Skin: No overlying skin lesions, rash or ecchymosis See above Jesus Villareal MD 01/26/2018 11:16 AM Addendum Prolotherapy Prolotherapy is a procedure that allows faster healing of soft tissue injuries of tendons, ligaments and muscles. This therapy stimulates tissue and wound healing and may eliminate the need for more extensive treatment, like surgery. How does Prolotherapy work? Prolotherapy uses dextrose (a naturally occurring sugar) and sometimes other substances which are injected into the painful part of the body in a series of one to six treatments. It is often performed along with dry- needling in which the needle is passed multiple times through the target tissue. The dextrose (and the needling used to administer it) is thought to trigger a healing response in the tissues: the needling action releases blood products in the region which consists of red blood cells, white blood cells, plasma and platelets (which release growth factors to stimulate healing). We think that this healing response is stronger that what the body receives from its injured tissues, especially if the injury has become chronic and only partially healed. What can I expect at the treatment? No particular preparation is required for the procedure. The doctor may do a physical examination or an ultrasound assessment to determine the site of injection. Depending on several factors, your doctor may choose to do the injection under the guidance of an ultrasound machine. Before giving you the injection your doctor may numb the area with a local anesthetic, especially if dry-needling is done at the time of injection. The injection will then be placed into the appropriate area of the body. How long does the PRP procedure take? The entire procedure should take about half an hour. How many injections will I need? Most patients will require one to three injections. Ask your doctor how many injections you will need. What happens after the procedure? The procedure may cause mild discomfort and some soreness at the injection site. Your symptoms may worsen for the first 24-48 hours after the injection. This is probably caused by the stimulation of the body's natural healing response which sometimes causes some inflammation. Most patients only require crky-tow-ltsffkr pain medication and ice as needed. A lower activity level is encouraged for the first few days after the injection, but in most cases, no immobilization or specific restrictions are required. (some athletes or people who do heavy physical labor are given restrictions, however). A follow-up visit with your doctor will determine when your are able to resume regular physical activities. Your doctor may want you to attend physical therapy sessions after the injection. What are the potential benefits of Prolotherapy injections? Patients may see a great improvement in symptoms after prolotherapy injections. This may eliminate the need for more aggressive treatments such as long-term medication or surgery. It may also allow the patient to regain function of the part of the body that was injured. How does Prolotherapy differ from cortisone shots? Cortisone injections may provide temporary pain relief and stop inflammation, but they do not provide long-term healing. In fact, studies have shown that cortisone injections may actually weaken tissue. How much does Prolotherapy cost? Each prolotherapy procedure costs $150 (multiple injections in the same body region at the same visit are included in this cost). Injections in multiple body regions cost $150 per body region. Subsequent injections also cost $100. The patient is responsible for this cost. Your doctor will discuss the risks and benefits of this therapy with you. Once you have made the decision to get an injection, please contact the financial counselor at the [facility] ([phone], toll-free , [phone]) to arrange payment. What do I do if I still have questions? Call your doctor's office and ask to speak to the nurse or medical instrument cable fabricator. To schedule - Call for Ultrasound Guided injection appointment with Dr Villareal on afternoon at [facility] ([email or web address]) [phone] or on Wednesday/Wednesday in [place] [phone] SI support belt - Serola type. Just SI joint coverage. OPTIONS - Lateral branch block/ Radiofrequency ablation ? Referring Provider: SELF [200] Allergies As of Date: 01/26/2018 Noted Allergy Reaction CODEINE 08/22/2012 11 - Vomiting Comments: fainting Date Reviewed: 01/26/2018 Reviewed by: Nora Almeida Ma - Fully Assessed Reason for Visit: Follow Up [171] Cmt: injection f/u, pain improvment momentairly atfer injection but has returned and worsened over the past week, pt last seen 11/26/17 Reason For Visit History Recorded Primary Visit Diagnosis:Sacroiliac joint dysfunction of left side [M53.3] Prescriptions as of 01/26/2018 Sig: CHOLECALCIFEROL (VITAMIN D3) * Take 5,000 Units by mouth onc* METOPROLOL SUCCINATE ER 100 M* Take 1 tablet by mouth once d* ASCORBIC ACID (VITAMIN C) 500* Take 500 mg by mouth once angella* CALCIUM 600 ORAL Take by mouth. MAGNESIUM OXIDE 400 MG TABLET Take 400 mg by mouth once angella* CYANOCOBALAMIN (VIT B-12) 2,5* Dissolve under the tongue. Problem List As Of Date 01/26/2018 Noted Resolved Posterior vitreous detachment of right eye [H43*INVALID FOR* Left retinal lattice degeneration [H35.412] INVALID FOR* Vitreous floaters of both eyes [H43.393] INVALID FOR* High myopia [H52.10] INVALID FOR* Presumed ocular histoplasmosis syndrome of righ*INVALID FOR* Chronic neck and back pain [M54.2, M54.9] INVALID FOR* Radiculopathy, lumbar region [M54.16] INVALID FOR*11/26/2017 Radiculopathy, cervical region [M54.12] INVALID FOR* 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 It band syndrome, left [M76.32] INVALID FOR* More... Other instructions from your clinician: Prolotherapy Prolotherapy is a procedure that allows faster healing of soft tissue injuries of tendons, ligaments and muscles. This therapy stimulates tissue and wound healing and may eliminate the need for more extensive treatment, like surgery. How does Prolotherapy work? Prolotherapy uses dextrose (a naturally occurring sugar) and sometimes other substances which are injected into the painful part of the body in a series of one to six treatments. It is often performed along with dry-needling in which the needle is passed multiple times through the target tissue. The dextrose (and the needling used to administer it) is thought to trigger a healing response in the tissues: the needling action releases blood products in the region which consists of red blood cells, white blood cells, plasma and platelets (which release growth factors to stimulate healing). We think that this healing response is stronger that what the body receives from its injured tissues, especially if the injury has become chronic and only partially healed. What can I expect at the treatment? No particular preparation is required for the procedure. The doctor may do a physical examination or an ultrasound assessment to determine the site of injection. Depending on several factors, your doctor may choose to do the injection under the guidance of an ultrasound machine. Before giving you the injection your doctor may numb the area with a local anesthetic, especially if dry-needling is done at the time of injection. The injection will then be placed into the appropriate area of the body. How long does the PRP procedure take? The entire procedure should take about half an hour. How many injections will I need? Most patients will require one to three injections. Ask your doctor how many injections you will need. What happens after the procedure? The procedure may cause mild discomfort and some soreness at the injection site. Your symptoms may worsen for the first 24-48 hours after the injection. This is probably caused by the stimulation of the body's natural healing response which sometimes causes some inflammation. Most patients only require ohyi-ndl-gzntxhd pain medication and ice as needed. A lower activity level is encouraged for the first few days after the injection, but in most cases, no immobilization or specific restrictions are required. (some athletes or people who do heavy physical labor are given restrictions, however). A follow-up visit with your doctor will determine when your are able to resume regular physical activities. Your doctor may want you to attend physical therapy sessions after the injection. What are the potential benefits of Prolotherapy injections? Patients may see a great improvement in symptoms after prolotherapy injections. This may eliminate the need for more aggressive treatments such as long-term medication or surgery. It may also allow the patient to regain function of the part of the body that was injured. How does Prolotherapy differ from cortisone shots? Cortisone injections may provide temporary pain relief and stop inflammation, but they do not provide long-term healing. In fact, studies have shown that cortisone injections may actually weaken tissue. How much does Prolotherapy cost? Each prolotherapy procedure costs $150 (multiple injections in the same body region at the same visit are included in this cost). Injections in multiple body regions cost $150 per body region. Subsequent injections also cost $100. The patient is responsible for this cost. Your doctor will discuss the risks and benefits of this therapy with you. Once you have made the decision to get an injection, please contact the financial counselor at the [facility] ([phone], toll-free , [phone]) to arrange payment. What do I do if I still have questions? Call your doctor's office and ask to speak to the nurse or medical instrument cable fabricator. To schedule - Call for Ultrasound Guided injection appointment with Dr Villareal on afternoon at [facility] ([email or web address]) [phone] or on Wednesday/Wednesday in [place] [phone] SI support belt - Serola type. Just SI joint coverage. OPTIONS - Lateral branch block/ Radiofrequency ablation ? Encounter Status:Closed by JESUS VILLAREAL MD on 01/28/18 PT ED Observed: 12/14/2017 Status: COMPLETED Source: [place] 10:23 AM [facility] REPOSITORY HNO ID: [id number] Author: Nita LynchRn) GREGORIA Sequeira Service: General Surgery Author Type: Registered Nurse Type: Patient Education Filed: 12/14/2017 10:24 AM Note Text: POST OP LEARNING RESPONSE INSTRUCTION PROVIDED TO: Patient and family member METHOD OF INSTRUCTION: Individual instruction Written instruction - handouts Verbal instruction PATIENT / FAMILY RESPONSE: Verbalizes understanding of: POST-PROCEDURE INSTRUCTIONS-Correct actions to take to reduce post procedure complications WORSENING CONDITION-Signs and symptoms of a worsening condition that warrant a call to the physician FOLLOW-UP PLAN: Follow up phone call. SUPPLEMENTAL MATERIAL: None REFERRAL (RECOMMENDATION): None Electronically Signed By: Nita Sequeira RN In Department: AMBULATORY SURGERY OPERATIVE NO Observed: 12/14/2017 Status: COMPLETED Source: [place] 10:09 AM [facility] REPOSITORY HNO ID: [id number] Author: Jesus Villareal Service: Physical Medicine AND Rehabilitation Author Type: Physician Type: Operative Report Filed: 12/14/2017 10:16 AM Note Text: OPERATIVE/PROCEDURE REPORT LOG ID: [id number] Surgery/Procedure Date: 12/14/2017 Incision/Procedure Start Time: 10:03 AM Incision Close/Procedure End Time: 10:07 AM Surgeon(s)/Proceduralist(s) and Dietary Service Aide(s): Surgeon(s) and Role: * Jesus Villareal - Primary No Additional Staff Procedure(s): Left sacroiliac joint injection. Anesthesia: Procedural Sedation Procedure Details: CLINICAL NOTE : After having previously explained the potential risks and benefits of the procedure, informed written consent was obtained. Then, either a new HANDP was completed, or the most recent one (completed in the past 30days) was reviewed for accuracy and the lung and CV exams were confirmed. PROCEDURE: She was then taken back to the procedure room and placed in a prone position and routine noninvasive monitors were applied. A timeout was performed verifying patient identification, site and allergies. The back was prepped with Betadine solution and draped in a sterile fashion. Under direct fluoroscopic guidance, the Left sacroiliac joint was identified. The skin and subcutaneous tissues were anesthetized with 3cc of 2% lidocaine. Under direct fluoroscopic visualization, a 5 inch, 22 gauge spinal needle} spinal needle was directed toward the sacroiliac joint space. The needle was directed anteriorly, medially and laterally until the tip of the needle was thought to be in the joint space. The needle position was confirmed on both AP and oblique views. Omnipaque 1cc was injected confirming dye flow into the sacroiliac joint space, highlighting the joint capsule with excellent arthrogram. The injection was completed with 1 cc of kenalong and 1cc of 2% lidocaine but NO feeling of joint pressurization was noted and post-injection xray show dye extracapsular suggesting incompetent joint. CT images abd were reviewed for SI joint and spine morphology (only) and uploaded before procedure- clearly has inferior SI joint sclerosis and spurring just on left. Spine looked OK except mild facet DJD. SI joints Opened in AP view The patient tolerated the procedure well and without complications. She was taken back to the recovery area in good condition. Post procedure precautions and instructions were reviewed with the patient who verbalized understanding. She left the suite under their own power with supervision of their chosen individual. Pre-Op/Pre-Procedure Diagnosis: sacroiliitis Post-Op/Post-Procedure Diagnosis: same Estimated Blood Loss: none Specimens: None Implantable Devices: None Drains: None Complications: None No qualified resident/fellow was available. SIGNATURE: Jesus Villareal MD PATIENT NAME: Linda Amin DATE: December 14, 2017 TIME: 10:09 AM PAGER/CONTACT #: HISTORY PHYSICAL Observed: 12/14/2017 Status: COMPLETED Source: [place] 9:52 AM [facility] REPOSITORY HNO ID: [id number] Author: Jesus Villareal Service: Physical Medicine AND Rehabilitation Author Type: Physician Type: HANDP Filed: 12/14/2017 9:53 AM Note Text: PROCEDURAL SEDATION HISTORY AND PHYSICAL EXAM SERVICE DATE: 12/14/2017 SERVICE TIME: 9:52 AM Subjective HPI: This is a 42 year old female who presents with ucnahnged left Sacral pain since my HANDP 11/26/17 PAST ANESTHESIA HISTORY: No history of adverse event PAST MEDICAL HISTORY Diagnosis Date - 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 12/13/2017 at Unknown time Yes metoprolol succinate ER (TOPROL XL) 100 mg Tb24 Take 1 tablet by mouth once daily. 12/13/2017 at Unknown time Yes ascorbic acid, vitamin C, (VITAMIN C) 500 mg tablet Take 500 mg by mouth once daily. 12/13/2017 at Unknown time Yes CALCIUM CARBONATE (CALCIUM 600 ORAL) Take by mouth. 12/13/2017 at Unknown time Yes magnesium oxide (MAG-OX) 400 mg tablet Take 400 mg by mouth once daily. 12/13/2017 at Unknown time Yes Cyanocobalamin 2,500 mcg subl Dissolve under the tongue. 12/13/2017 at Unknown time Yes ALLERGIES Allergen Reactions - Codeine Vomiting fainting Objective PHYSICAL EXAM: GENERAL: Pleasant, straightforward, WDWN individual. MENTAL STATUS: Pleasant, direct, appropriate mood and affect AIRWAY: Airway Visualization of Uvula: Yes Mouth opening greater than 2 fingerbreadths: Yes Neck Full Range of Motion: Yes LUNGS: Lungs clear to auscultation, Good diaphragmatic excursion CARDIAC: Normal S1 and S2; no rubs, murmurs, or gallops LYMPH: No LAD, no lymphedema SKIN: No overlying skin change, ecchymosis, or erythema. Assessment/Plan ASA Class: ASA Class:: Patient with mild systemic disease Active Hospital Problems Diagnosis - Sacroiliitis (HCC) Added automatically from request for surgery [id number] - It band syndrome, left Added automatically from request for surgery [id number] Provisional Diagnosis/Treatment Plan: above SEDATION GOAL: Moderate SIGNATURE: Jesus Villareal MD PATIENT NAME: Linda Amin DATE: December 14, 2017 TIME: 9:52 AM PAGER: [phone] PT ED Observed: 12/14/2017 Status: COMPLETED Source: [place]GE[place]E 9:21 AM [facility] REPOSITORY HNO ID: [id number] Author: Augusta (Gregoria) GREGORIA Gomes Service: (none) Author Type: Registered Nurse Type: Patient Education Filed: 12/14/2017 9:22 AM Note Text: PRE OP LEARNING ASSESSMENT PROCEDURE/SURGERY: PAIN MANAGEMENT: left si injection READINESS TO LEARN COGNITIVE ABILITY: Alert and oriented MOTIVATION TO LEARN: Eager FAMILY SUPPORT: None - Unavailable/disinterested PATIENT LEARNS BEST BY: Individual Instruction FACTORS AFFECTING LEARNING: None PHYSICAL LIMITATIONS AFFECTING LEARNING: None Electronically Signed By: Augusta Gomes RN In Department: AMBULATORY SURGERY HOSP Observed: 12/01/2017 Status: COMPLETED Source: [place] 12:00 AM [facility] REPOSITORY Patient:Linda Amin MRN: <[id number]> Height:5' 8(1.727 m) Weight:210 lb (95.255 kg) Outpatient Medications as of 12/14/17: cholecalciferol (VITAMIN D-3) 5,000 unit tab metoprolol succinate ER (TOPROL XL) 100 mg Tb24 ascorbic acid, vitamin C, (VITAMIN C) 500 mg tablet CALCIUM CARBONATE (CALCIUM 600 ORAL) magnesium oxide (MAG-OX) 400 mg tablet Cyanocobalamin 2,500 mcg subl Admission/Clinic Administered Medications as of 12/14/17: NaCl 0.9% iv infusion Problem List: Posterior vitreous detachment of right eye [H43.811] Left retinal lattice degeneration [H35.412] Vitreous floaters of both eyes [H43.393] High myopia [H52.10] 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 [B39.9, H32] Chronic neck and back pain [M54.2, M54.9] Radiculopathy, cervical region [M54.12] Tensor fascia precious syndrome [M62.89] Rotator cuff impingement syndrome of left shoulder [M75.42] [place]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 She is asking if there is anything she can take to help with this. She is having an injection tomorrow. Please advise, thank you! Rosa Tavares Psr 12/13/2017 1:35 PM Signed Patient wanted to send an apology. She wasn't asking for you to prescribe something, just if it was okay that she takes what she has. But thank you for the call back! The surgery center was able to provider her information as well. Thanks again! 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 She H/o [place] Danlos syndrome, POTS, SVT, Right shoulder labral/capsule repair 2016/[facility], and Right foot 2nd MT reconstruction in 2016. Here mostly for LBP - ?SI joint. Had horrible sacral pain with pregnancies - never really resolved but much worse x 2yrs without injury. The pain is described as constant achy burning pain mostly left but sometimes right, with radiation to the thigh and rarely past the knee. The pain increases with prolonged walking and prolonged positions with lying and turning in bed, and is relieved by change in position but nothing really helps. She takes [id number] NSAIDs now, prescription NSAIDs did not help much more. Also chronic neck and shoulder pain, less of a concern. Says has separate ongoing left knee pain also may be from IT band laterally, but one pain localizes more to the knee feels unstable and gives out She reports no fevers, chills, sweats, night pain, weight loss or cancer history , no change in bladder and bowel function - better since sling, some IBS symptoms but can control. Pertinent Physical Exam (see remainder below): MSK: Lumbar Spine: Mildly reduced ROM pain limited in extension to about 10?, flexion is near full lateral bending is painful on both sides pain in extension for the most part. Left greater than right SI joint is tender to palpation, no pelvic tilt, SI joint maneuvers are nonspecific?Venita test causes a large pop in the hip, this was painful diffusely, but mostly negative as far as the sacrum and goes. Thigh thrust positive spring test positive . Str Leg Raise negative, hip provocative maneuvers otherwise negative but trochanter is tender, IT band is tender more distally Neuro: Normal strength, bulk and tone of lower limbs bilaterally, Reflexes 1+ bilaterally IMPRESSION: Left sacroiliitis, cannot exclude lumbar disc bulge or facet pain as well. 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 I asked her to try to bring her images from CT abdomen and [facility] along with her - Continue PT but she like to minimize visits because of 24 yearly maximum. Suggested 1 more visit to work at home exercises and then restart after injection -Briefly discuss prolotherapy if SI joint injection is successful at least temporarily - Continue [id number]-[id number] NSAIDs, may alternate with Tylenol for better relief. f/u about a weeks Diagnoses and plan discussed with the patient, patient educated on above diagnoses and treatments, including alternatives Jesus Villareal MD Cc: Dontae JO SUPPORTING DOCUMENTATION (remaining history, exam, other findings): Work-up reviewed - this has included MRI hip 2009 - , doesn't show SI joint. Scoli xray 2017 Treatment has included Left glut ITB trigger point injection Dr Diggs 10/28/17 Helped ~30-40%, at least could lie on side better. MEDICATIONS: Current Outpatient Prescriptions: cholecalciferol (VITAMIN D-3) 5,000 unit tab Take 5,000 Units by mouth once daily. Disp: Rfl: TURMERIC ROOT EXTRACT ORAL Take by mouth. Disp: Rfl: metoprolol succinate ER (TOPROL XL) 100 mg Tb24 Take 1 tablet by mouth once daily. Disp: Rfl: ascorbic acid, vitamin C, (VITAMIN C) 500 mg tablet Take 500 mg by mouth once daily. Disp: Rfl: CALCIUM CARBONATE (CALCIUM 600 ORAL) Take by mouth. Disp: Rfl: magnesium oxide (MAG-OX) 400 mg tablet Take 400 mg by mouth once daily. Disp: Rfl: Cyanocobalamin 2,500 mcg subl Dissolve under the tongue. Disp: Rfl: No current facility-administered medications for this visit. 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) - History of TIAs History of 11 years - Migraine - PVC (premature ventricular contraction) - SVT (supraventricular tachycardia) (HCC) FAMILY HISTORY Problem Relation Age of Onset - Diabetes Father - Cataract Father - Diabetes Mother Social History Marital status: Spouse name: Years of education: Number of children: Social History Main Topics Smoking status: Never Smoker Smokeless status: Never Used Review of Systems: Somewhat diffusely positive, multisystem involvement by history but nothing is changed significantly lately: GENERAL:No weight loss, malaise or fevers., SEE HPI HEENT:Negative for frequent or significant headaches, No changes in hearing or vision, no nose bleeds or other nasal problems NECK:Negative for lumps, goiter, pain and significant neck swelling RESPIRATORY: Negative for cough, wheezing or shortness of breath. CARDIOVASCULAR: Negative for chest pain, leg swelling or palpitations. GASTROINTESTINAL: Negative for abdominal discomfort, blood in stools or black stools or change in bowel habits GENITOURINARY: No history of dysuria, frequency or incontinence MUSCULOSKELETAL: See HPI NEUROLOGIC:See HPI SKIN:Negative for lesions, rash, and itching. PSYCHIATRIC: POS sleep disturbance, mood disorder and recent psychosocial stressors. HEMATOLOGIC/LYMPHATIC/IMMUNOLOGIC:Negative for prolonged bleeding, bruising easily or swollen nodes. ENDOCRINE: Negative for cold or heat intolerance, polyuria, polydipsia and goiter. The remainder of the ROS was negative. EXAM 11/26/17 1521 BP: 134/75 Pulse: 80 Weight: 95.3 kg (210 lb) General: Well developed, well nourished in no acute distress. Mental Status: Pleasant, alert, oriented to person, place and time. Respiratory: Breathing unlabored without wheezing or coughing. Vascular: Normal peripheral pulses, no cyanosis, no lower limb edema Lymph: No LAD, no lymphedema Skin: No overlying skin lesions, rash or ecchymosis See above Jesus Villareal MD 11/26/2017 3:54 PM Signed For Sacroiliac Joint injection in [place] () or [place] (), call [phone]. -DO NOT TAKE Blood thinners (if you use them), for 7 days prior to the injection (it is OK to take NSAIDs, ibuprofen, etc) If you need sedation for the procedure, do not eat or drink for 8 hours prior to your procedure. BUT it is ok to take your usual medications except blood thinners with small sips of clear liquids. If you do NOT need sedation, It is ok to eat a normal diet before and after the injection, and take all of your usual medications except blood thinners. 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 She H/o [place] Danlos syndrome, POTS, SVT, Right shoulder labral/capsule repair 2015/[facility], and Right foot 2nd MT reconstruction in 2016. Here mostly for LBP - ?SI joint. Had horrible sacral pain with pregnancies - never really resolved but much worse x 2yrs without injury. The pain is described as constant achy burning pain mostly left but sometimes right, with radiation to the thigh and rarely past the knee. The pain increases with prolonged walking and prolonged positions with lying and turning in bed, and is relieved by change in position but nothing really helps. She takes [id number] NSAIDs now, prescription NSAIDs did not help much more. Also chronic neck and shoulder pain, less of a concern. Says has separate ongoing left knee pain also may be from IT band laterally, but one pain localizes more to the knee feels unstable and gives out She reports no fevers, chills, sweats, night pain, weight loss or cancer history , no change in bladder and bowel function - better since sling, some IBS symptoms but can control. Pertinent Physical Exam (see remainder below): MSK: Lumbar Spine: Mildly reduced ROM pain limited in extension to about 10?, flexion is near full lateral bending is painful on both sides pain in extension for the most part. Left greater than right SI joint is tender to palpation, no pelvic tilt, SI joint maneuvers are nonspecific?Venita test causes a large pop in the hip, this was painful diffusely, but mostly negative as far as the sacrum and goes. Thigh thrust positive spring test positive . Str Leg Raise negative, hip provocative maneuvers otherwise negative but trochanter is tender, IT band is tender more distally Neuro: Normal strength, bulk and tone of lower limbs bilaterally, Reflexes 1+ bilaterally IMPRESSION: Left sacroiliitis, cannot exclude lumbar disc bulge or facet pain as well. Left IT band pain with minimal relief from cortisone injection, may be more peripheral sensitization or mechanical abnormality History of [place] Danlos syndrome by clinical criteria only, does have hypermobility Also chronic neck and shoulder pain?not fully evaluated today, less of a concern RECOMMENDATIONS: - She will call to Schedule left SI joint injection with fluoroscopy. I asked her to try to bring her images from CT abdomen and pelvis from [facility] along with her - Continue PT but she like to minimize visits because of 24 yearly maximum. Suggested 1 more visit to work at home exercises and then restart after injection -Briefly discuss prolotherapy if SI joint injection is successful at least temporarily - Continue leek-bnu-lsfvndf NSAIDs, may alternate with Tylenol for better relief. f/u about a weeks Diagnoses and plan discussed with the patient, patient educated on above diagnoses and treatments, including alternatives Jesus Villareal MD Cc: Dontae JO SUPPORTING DOCUMENTATION (remaining history, exam, other findings): Work-up reviewed - this has included MRI hip 2009 - , doesn't show SI joint. Scoli xray 2018 Treatment has included Left glut ITB trigger point injection Dr Diggs 10/28/17 Helped ~30-40%, at least could lie on side better. MEDICATIONS: Current Outpatient Prescriptions: cholecalciferol (VITAMIN D-3) 5,000 unit tab Take 5,000 Units by mouth once daily. Disp: Rfl: TURMERIC ROOT EXTRACT ORAL Take by mouth. Disp: Rfl: metoprolol succinate ER (TOPROL XL) 100 mg Tb24 Take 1 tablet by mouth once daily. Disp: Rfl: ascorbic acid, vitamin C, (VITAMIN C) 500 mg tablet Take 500 mg by mouth once daily. Disp: Rfl: CALCIUM CARBONATE (CALCIUM 600 ORAL) Take by mouth. Disp: Rfl: magnesium oxide (MAG-OX) 400 mg tablet Take 400 mg by mouth once daily. Disp: Rfl: Cyanocobalamin 2,500 mcg subl Dissolve under the tongue. Disp: Rfl: No current facility-administered medications for this visit. 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) - History of TIAs History of 11 years - Migraine - PVC (premature ventricular contraction) - SVT (supraventricular tachycardia) ([facility]) FAMILY HISTORY Problem Relation Age of Onset - Diabetes Father - Cataract Father - Diabetes Mother Social History Marital status: Spouse name: Years of education: Number of children: Social History Main Topics Smoking status: Never Smoker Smokeless status: Never Used Review of Systems: Somewhat diffusely positive, multisystem involvement by history but nothing is changed significantly lately: GENERAL:No weight loss, malaise or fevers., SEE HPI HEENT:Negative for frequent or significant headaches, No changes in hearing or vision, no nose bleeds or other nasal problems NECK:Negative for lumps, goiter, pain and significant neck swelling RESPIRATORY: Negative for cough, wheezing or shortness of breath. CARDIOVASCULAR: Negative for chest pain, leg swelling or palpitations. GASTROINTESTINAL: Negative for abdominal discomfort, blood in stools or black stools or change in bowel habits GENITOURINARY: No history of dysuria, frequency or incontinence MUSCULOSKELETAL: See HPI NEUROLOGIC:See HPI SKIN:Negative for lesions, rash, and itching. PSYCHIATRIC: POS sleep disturbance, mood disorder and recent psychosocial stressors. HEMATOLOGIC/LYMPHATIC/IMMUNOLOGIC:Negative for prolonged bleeding, bruising easily or swollen nodes. ENDOCRINE: Negative for cold or heat intolerance, polyuria, polydipsia and goiter. The remainder of the ROS was negative. EXAM 11/26/17 1521 BP: 134/75 Pulse: 80 Weight: 95.3 kg (210 lb) General: Well developed, well nourished in no acute distress. Mental Status: Pleasant, alert, oriented to person, place and time. Respiratory: Breathing unlabored without wheezing or coughing. Vascular: Normal peripheral pulses, no cyanosis, no lower limb edema Lymph: No LAD, no lymphedema Skin: No overlying skin lesions, rash or ecchymosis See above Jesus Villareal MD 11/26/2017 3:54 PM Signed For Sacroiliac Joint injection in [place] () or [place] (), call [phone]. -DO NOT TAKE Blood thinners (if you use them), for 7 days prior to the injection (it is OK to take NSAIDs, ibuprofen, etc) If you need sedation for the procedure, do not eat or drink for 8 hours prior to your procedure. BUT it is ok to take your usual medications except blood thinners with small sips of clear liquids. If you do NOT need sedation, It is ok to eat a normal diet before and after the injection, and take all of your usual medications except blood thinners. Referring Provider: SELF [[id number]] Allergies As of Date: 11/26/2017 Noted Allergy Reaction CODEINE 08/22/2012 11 - Vomiting Comments: fainting Date Reviewed: 11/26/2017 Reviewed by: Pippa Pérez Ma - Fully Assessed Primary Visit Diagnosis:Sacroiliitis (HCC) [M46.1] Other Visit Diagnoses:It band syndrome, left [M76.32] Chronic neck and back pain [M54.2, M54.9] Prescriptions as of 11/26/2017 Sig: CHOLECALCIFEROL (VITAMIN D3) * Take 5,000 Units by mouth onc* METOPROLOL SUCCINATE ER 100 M* Take 1 tablet by mouth once d* ASCORBIC ACID (VITAMIN C) 500* Take 500 mg by mouth once angella* CALCIUM 600 ORAL Take by mouth. MAGNESIUM OXIDE 400 MG TABLET Take 400 mg by mouth once angella* CYANOCOBALAMIN (VIT B-12) 2,5* Dissolve under the tongue. Problem List As Of Date 11/26/2017 Noted Resolved Posterior vitreous detachment of right eye [H43*INVALID FOR* Left retinal lattice degeneration [H35.412] INVALID FOR* Vitreous floaters of both eyes [H43.393] INVALID FOR* High myopia [H52.10] INVALID FOR* Presumed ocular histoplasmosis syndrome of righ*INVALID FOR* Chronic neck and back pain [M54.2, M54.9] INVALID FOR* Radiculopathy, lumbar region [M54.16] INVALID FOR*11/26/2017 Radiculopathy, cervical region [M54.12] INVALID FOR* Tensor fascia precious syndrome [M62.89] INVALID FOR* Rotator cuff impingement syndrome of left shoul*INVALID FOR* [place]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 -DO NOT TAKE Blood thinners (if you use them), for 7 days prior to the injection (it is OK to take NSAIDs, ibuprofen, etc) If you need sedation for the procedure, do not eat or drink for 8 hours prior to your procedure. BUT it is ok to take your usual medications except blood thinners with small sips of clear liquids. If you do NOT need sedation, It is ok to eat a normal diet before and after the injection, and take all of your usual medications except blood thinners. Medications Discontinued During This Encounter TURMERIC ROOT EXTRACT ORAL 11/26/2017 Class: Historical Med Route: ORAL Sig: Take by mouth. Disc: Reason for discontinue is not on file. Disposition: Return in about 8 months (around 07/29/2018). 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 She H/o [place] Danlos syndrome, POTS, SVT, Right shoulder labral/capsule repair 2016/[facility], and Right foot 2nd MT reconstruction in 2016. Here mostly for LBP - ?SI joint. Had horrible sacral pain with pregnancies - never really resolved but much worse x 2yrs without injury. The pain is described as constant achy burning pain mostly left but sometimes right, with radiation to the thigh and rarely past the knee. The pain increases with prolonged walking and prolonged positions with lying and turning in bed, and is relieved by change in position but nothing really helps. She takes [id number] NSAIDs now, prescription NSAIDs did not help much more. Also chronic neck and shoulder pain, less of a concern. Says has separate ongoing left knee pain also may be from IT band laterally, but one pain localizes more to the knee feels unstable and gives out She reports no fevers, chills, sweats, night pain, weight loss or cancer history , no change in bladder and bowel function - better since sling, some IBS symptoms but can control. Pertinent Physical Exam (see remainder below): MSK: Lumbar Spine: Mildly reduced ROM pain limited in extension to about 10?, flexion is near full lateral bending is painful on both sides pain in extension for the most part. Left greater than right SI joint is tender to palpation, no pelvic tilt, SI joint maneuvers are nonspecific?Venita test causes a large pop in the hip, this was painful diffusely, but mostly negative as far as the sacrum and goes. Thigh thrust positive spring test positive . Str Leg Raise negative, hip provocative maneuvers otherwise negative but trochanter is tender, IT band is tender more distally Neuro: Normal strength, bulk and tone of lower limbs bilaterally, Reflexes 1+ bilaterally IMPRESSION: Left sacroiliitis, cannot exclude lumbar disc bulge or facet pain as well. Left IT band pain with minimal relief from cortisone injection, may be more peripheral sensitization or mechanical abnormality History of [place] Danlos syndrome by clinical criteria only, does have hypermobility Also chronic neck and shoulder pain?not fully evaluated today, less of a concern RECOMMENDATIONS: - She will call to Schedule left SI joint injection with fluoroscopy. I asked her to try to bring her images from CT abdomen and pelvis from [facility] along with her - Continue PT but she like to minimize visits because of 24 yearly maximum. Suggested 1 more visit to work at home exercises and then restart after injection -Briefly discuss prolotherapy if SI joint injection is successful at least temporarily - Continue tlni-zdc-qsqphth NSAIDs, may alternate with Tylenol for better relief. f/u about a weeks Diagnoses and plan discussed with the patient, patient educated on above diagnoses and treatments, including alternatives Jesus Villareal MD Cc: Dontae JO SUPPORTING DOCUMENTATION (remaining history, exam, other findings): Work-up reviewed - this has included MRI hip 2009 - , doesn't show SI joint. Scoli xray 2017 Treatment has included Left glut ITB trigger point injection Dr Diggs 10/28/17 Helped ~30-40%, at least could lie on side better. MEDICATIONS: Current Outpatient Prescriptions: cholecalciferol (VITAMIN D-3) 5,000 unit tab Take 5,000 Units by mouth once daily. Disp: Rfl: TURMERIC ROOT EXTRACT ORAL Take by mouth. Disp: Rfl: metoprolol succinate ER (TOPROL XL) 100 mg Tb24 Take 1 tablet by mouth once daily. Disp: Rfl: ascorbic acid, vitamin C, (VITAMIN C) 500 mg tablet Take 500 mg by mouth once daily. Disp: Rfl: CALCIUM CARBONATE (CALCIUM 600 ORAL) Take by mouth. Disp: Rfl: magnesium oxide (MAG-OX) 400 mg tablet Take 400 mg by mouth once daily. Disp: Rfl: Cyanocobalamin 2,500 mcg subl Dissolve under the tongue. Disp: Rfl: No current facility-administered medications for this visit. 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) - History of TIAs History of 11 years - Migraine - PVC (premature ventricular contraction) - SVT (supraventricular tachycardia) (HCC) FAMILY HISTORY Problem Relation Age of Onset - Diabetes Father - Cataract Father - Diabetes Mother Social History Marital status: Spouse name: Years of education: Number of children: Social History Main Topics Smoking status: Never Smoker Smokeless status: Never Used Review of Systems: Somewhat diffusely positive, multisystem involvement by history but nothing is changed significantly lately: GENERAL:No weight loss, malaise or fevers., SEE HPI HEENT:Negative for frequent or significant headaches, No changes in hearing or vision, no nose bleeds or other nasal problems NECK:Negative for lumps, goiter, pain and significant neck swelling RESPIRATORY: Negative for cough, wheezing or shortness of breath. CARDIOVASCULAR: Negative for chest pain, leg swelling or palpitations. GASTROINTESTINAL: Negative for abdominal discomfort, blood in stools or black stools or change in bowel habits GENITOURINARY: No history of dysuria, frequency or incontinence MUSCULOSKELETAL: See HPI NEUROLOGIC:See HPI SKIN:Negative for lesions, rash, and itching. PSYCHIATRIC: POS sleep disturbance, mood disorder and recent psychosocial stressors. HEMATOLOGIC/LYMPHATIC/IMMUNOLOGIC:Negative for prolonged bleeding, bruising easily or swollen nodes. ENDOCRINE: Negative for cold or heat intolerance, polyuria, polydipsia and goiter. The remainder of the ROS was negative. EXAM 11/26/17 1521 BP: 134/75 Pulse: 80 Weight: 95.3 kg (210 lb) General: Well developed, well nourished in no acute distress. Mental Status: Pleasant, alert, oriented to person, place and time. Respiratory: Breathing unlabored without wheezing or coughing. Vascular: Normal peripheral pulses, no cyanosis, no lower limb edema Lymph: No LAD, no lymphedema Skin: No overlying skin lesions, rash or ecchymosis See above US INJ TRIGGER POINT Observed: 10/28/2017 Status: F Source: [facility] 11:46 AM [facility] REPOSITORY * * *Final Report* * * DATE OF EXAM: Oct 28 2017 11:46AM AMANDA 1151 - US INJ TRIGGER POINT LT / PROCEDURE REASON: Pain in left hip * * * * Physician Interpretation * * * * ULTRASOUND GUIDED LEFT GLUTEUS LELIA MUSCLE/IT BAND TRIGGER POINT INJECTION 1. INDICATION: The patient is a 42 years year old female who presented with left hip pain with ultrasound dated 10/27/2017 demonstrating distal gluteus lelia muscle and IT band scarring corresponding to the area of pain. 2. CONSENT: The risks, benefits, treatment options, potential complications and personnel to be involved were discussed (including the instruments to be used, contrast and anesthesia administration) with the patient. All questions were answered and consent was obtained. The patient indicated willingness to proceed. 3. GENERAL: a) Medication Reconciliation: The patient's medications and allergies were reviewed in the electronic medical record and reconciled to the proposed procedure/treatment. Pre-procedure Sign-in: Safety Checklist Performed Yes c) Positioning: The patient was placed Prone on the Ultrasound table. d) Ultrasound guidance was used to target the gluteus lelia muscle. The buttock was then sterilely prepped and draped. Ultrasound images were saved and sent to a permanent archive. e) Time Out: A time out was performed immediately prior to procedure start with the nursing, anesthesia and interventional team, correctly identifying the patient name, date of , procedure, anatomy (including marking of site and side), patient position, procedure consent form, relevant diagnostic and radiology test results, antibiotic administration, safety precautions, and procedure-specific equipment needs. Procedure Start Time / Timeout Time: 1141 hours; Timeout Affirmation (if attending not present): N/A f) Anesthesia Type: Local anesthesia: 1% Lidocaine 4. PROCEDURE: a) Procedure Details:A 20g spinal needle was inserted into the muscle at the gluteus lelia/IT band junction using ultrasound guidance.3 mL of injectate was administered into the area of scarring. . The needle was removed. Images were stored to the digital archive documenting needle position. b) Injectate Contents: 2 mL 1% Lidocaine 1 mL Triamcinolone Acetonide (Kenalog) 40mg/ml mL c) Estimated Blood Loss: 0 mls d) Number and Type of Removed Specimens: N/A of POST PROCEDURE: a) Hemostasis: Hemostasis was achieved using light manual compression. b) Sign-out: Communication Performed Yes c) Procedure End Time: 1143 hours d) Conclusion: 1. Post-Procedure instructions:Verbal instructions were given. 2. The patient was discharged from the radiology department in stable condition. COMPLICATIONS: a) Significant Patient Complication: None If other, explain: b) Complications during the procedure: None If other, explain: 10. RESULTS:Medication was injected into the gluteus lelia muscle area of chronic scar. There was immediate relief of pain after the injection 11. IMPRESSION: SUCCESSFUL ULTRASOUND GUIDED TRIGGER POINT INJECTION OF THE LEFT GLUTEUS LELIA MUSCLE DESCRIBED ABOVE. Attending Radiologist: Dr. Freddy Diggs MD Dietary Service Aide: Jaiden Hawk MD, PhD The procedure was performed by the: the assistant men's lacrosse coach, and the attending radiologist personally supervised the entire procedure. The attending radiologist performed the following procedural activities: None Brim Buster: PSCB Transcribe Date/Time: Oct 28 2017 12:29P Dictated by : JAIDEN HAWK MD,PHD This examination was interpreted and the report reviewed and electronically signed by: FREDDY DIGGS MD on Oct 28 2017 2:03PM EST [id number] PROGRESS Observed: 10/27/2017 Status: COMPLETED Source: [place] 1:55 PM [facility] [place] REPOSITORY [facility] ID: [id number] Author: Freddy Diggs Service: (none) Author Type: Physician Type: Progress Notes Filed: 10/27/2017 3:18 PM Note Text: CLINIC CONSULT [id number] 30 minute consult REFERRED BY: Dr Addis Arellano Final recommendations will be communicated back to the requesting physician by way of shared Medical record. Linda Medinar 42 year old presents with [place] and a chief complaint of left upper buttock, lateral hip and anterior superior hip pain. HPI (1-3 elements) Pain Evaluation:6 Pain Location: Lateral hip Pain radiation: Pain radiates to left lateral knee and does wake patient up at night. Other major symptoms:None Length of symptoms:1-2 years, on and off Effect on Activity of daily living:Push though with the kids. Go to bed early. Taking medications. Not as active in the evening. Hard to do dishes and standing. Associated symptoms:Weakness after sitting for a long time to get up to stand. Aggravating Factors:Car rides, up and down off of the floor, walking. A lot of standing. Relieving Factors:Motrin takes the edge off. Tens unit helps. Previous Treatments:Tens unit and presure point back brace both help temporarily Compliance with previous Treatments:Yes Barriers:No REVIEW OF SYSTEMS: Constitutional: patient denies any recent fever or significant change in weight Musculoskeletal: as noted in the HPI Neurologic: patient denies any peripheral numbness or radiation of pain SOCIAL HISTORY: Smoker No Support for potential treatments/immobilization Home Yes Job No N/A Transportation Yes Diet: Low FADMAP and gluten free Current Stress/Pain Management: None. Sews and Micky/Cook. ALLERGIES: ALLERGIES Allergen Reactions - Codeine Vomiting fainting PERTINENT SURGICAL HISTORY: Left foot bone graft in 2nd MT from ankle 2years ago. A boot for a year. Pertinent Family History: None PERTINENT MEDICATIONS: Current Outpatient Prescriptions: cholecalciferol (VITAMIN D-3) 5,000 unit tab Take 5,000 Units by mouth once daily. Disp: Rfl: TURMERIC ROOT EXTRACT ORAL Take by mouth. Disp: Rfl: metoprolol succinate ER (TOPROL XL) 100 mg Tb24 Take 1 tablet by mouth once daily. Disp: Rfl: ascorbic acid, vitamin C, (VITAMIN C) 500 mg tablet Take 500 mg by mouth once daily. Disp: Rfl: CALCIUM CARBONATE (CALCIUM 600 ORAL) Take by mouth. Disp: Rfl: magnesium oxide (MAG-OX) 400 mg tablet Take 400 mg by mouth once daily. Disp: Rfl: Cyanocobalamin 2,500 mcg subl Dissolve under the tongue. Disp: Rfl: No current facility-administered medications for this visit. Anti-inflammatories:Yes: Motin Narcotics:Yes: Oxycodone still has from prior surgery Blood thinners:No Diabetic medications:No Supplements:Yes: as listed PHYSICAL EXAM: Vitals: BP125/88 HR72 RR12 Constitution: Appears well groomed Orientation: Oriented X3 Body Habitus: Mildly obese Focused Exam: Location:lateral hip and upper buttock, left. Also over ASIS but only when holding baby. Tenderness: Lateral hip pain over the greater trochanter. Strength: 5/5 ROM: Normal Sensation: Swelling/Deformity:None Other:None IMAGING REVIEW: Xray:None MRI:None Recent CT:None Ultrasound:Today: IMPRESSION: MODERATE IT BAND SCARRING IN THE POSTERIOR INFRATROCHANTERIC LOCATION WITH MINIMAL DISTAL GLUTEUS LELIA MUSCLE SCARRING IN THE REGION OF PAIN. PAIN OVER THE REGION OF THE SI JOINT AND ANTERIOR SUPERIOR ILIAC SPINE WITHOUT ULTRASOUND ABNORMALITY. EM10/11/2017 Study Interpretation Extensive electrodiagnostic examination of the left upper limb reveals no significant abnormalities. In particular, there is neither evidence of a left cervical motor radiculopathy, which includes examination of C5-T1 and low cervical paraspinal muscles, nor a median neuropathy at or distal to the wrist (carpal tunnel syndrome). Other:None CLINICAL IMPRESSION / ASSESSMENT: Diagnosis: 1. IT band/gluteus lelia muscle scarring 2. SI joint pain. No ultrasound abnormality. Recommendation for treatment: 1. Steroid injection of IT band/Gluteus lelia junction 2. Gait and posture analysis and advanced soft tissue physical therapy. PLAN: Orders: US INJ TRIGGER POINT LT [[id number]] (Order [id number]) CONSULT TO PHYSICAL THERAPY [9032] (Order [id number]) Consent:done RTC: Follow up with Dr Jesus Villareal for SI joint 3-[address] Arellano has left the clinic. Uagm-kk-cucm time: Total time = 45 minutes. 30 minutes were spent [id number]-[id number] with the patient, >50% of the time was spent counseling the patient, reviewing imaging and management options with the patient and coordinating care. Freddy Diggs MD US HIP LT Observed: 10/27/2017 Status: F Source: [place] 1:54 PM [facility] REPOSITORY * * *Final Report* * * DATE OF EXAM: Oct 27 2017 1:54PM [facility] 1147 - US HIP LT / PROCEDURE REASON: multiple diagnoses * * * * Physician Interpretation * * * * LEFT LATERAL HIP ULTRASOUND: CLINICAL INFORMATION: Chronic posterolateral hip pain for 2 years. TECHNIQUE: Lopez-scale real-time ultrasound of the lateral hip with dynamic imaging and power Doppler examination was performed. Images were saved to the permanent image archive. v1-18. COMPARISON: MRI November 11, 2009 FINDINGS: AREA OF PAIN/SYMPTOMS: Over the posterior IT band with the gluteus lelia inserts; SI joint; over the anterior superior iliac spine. Regional scanning over the SI joint and anterior superior iliac spine are unremarkable. GLUTEUS MINIMUS TENDON: Tendinosis: Mild Tearing: None. Hyperemia: None. Anterior Facet: Mild enthesopathy. GLUTEUS MEDIUS TENDON: Tendinosis: Mild Tearing: None. Hyperemia: None. Lateral Facet: Mild enthesopathy. GLUTEUS MINIMUS MUSCULATURE: Bulk: Maintained Echogenicity: Normal. Fascial Thickening: None. GLUTEUS MEDIUS MUSCULATURE: Bulk: Maintained Echogenicity: Normal. Fascial Thickening: None. Dynamic Resisted Abduction: Normal. GLUTEUS LELIA MUSCLE: Bulk: Maintained Echogenicity: There is mild regional increased echogenicity at the insertion of the IT band. Fascial Thickening: None. GREATER TROCHANTER BURSAE: No findings of bursitis. SUBGLUTEAL BURSAE: No findings of bursitis. ILIOTIBIAL BAND: There is moderate thickening of the IT band posteriorly corresponding to the area of pain along the infratrochanteric location. There is no hyperemia. Dynamic examination of the iliotibial band is normal. Distal gluteus lelia attachment appears intact. Tensor Fascia Precious insertion on the IT band is normal. IMPRESSION: MODERATE IT BAND SCARRING IN THE POSTERIOR INFRATROCHANTERIC LOCATION WITH MINIMAL DISTAL GLUTEUS LELIA MUSCLE SCARRING IN THE REGION OF PAIN. PAIN OVER THE REGION OF THE SI JOINT AND ANTERIOR SUPERIOR ILIAC SPINE WITHOUT ULTRASOUND ABNORMALITY. Brim Buster: JORGITO Transcribe Date/Time: Oct 27 2017 2:04P Dictated by : FREDDY DIGGS MD This examination was interpreted and the report reviewed and electronically signed by: FREDDY DIGGS MD on Oct 27 2017 2:08PM EST [id number] CARDIOLOGY VISIT Observed: 10/08/2017 Status: F Source: [place] REPORT 3:02 PM [facility] REPOSITORY [facility] [address] [place] [address]. [address] [place] [address] OFFICE VISIT Date of Service: 10/08/17 MR#: [id number] Acct: [id number] Name: KEVIN AMINNE Rep #: [id number] : 1975 Provider: Ebenezer Durham MD Age/Sex: 42/F Location: [facility] Status: Signed HPI 1 Y FU: Details: LINDA AMIN, is a 42 F who presents to the office today for for outpatient cardiovascular follow-up. Since her visit of 08/26/2016 she states overall she has been doing reasonably well. However she notes that during 2017 she did have 2-3 near syncopal events and she had to what she believes were syncopal events. Both of those events occurred when she was out shopping. She states she consents the events coming on but unfortunately was not able to sit down or lie down soon enough. With her van she did not feel well, she had nausea, and vomiting. She was treated with fluids. She did not present to the hospital for evaluation of those events. She states that she was taken home and rested. These events were similar to events she has had in the past which were felt compatible with her vasovagal type events. Otherwise she has been up and active. She has described no other concerns of chest discomfort, difficulty breathing, or palpitations. She states she continues to drink fluids. She drinks 3-4 bottles of electrolyte drinks per day. This is in addition to her other fluids that she consumes during the daytime hours. She does wear support stockings. However she states that she is having a hard time keeping her support stockings up. She states they want to go down around her ankles. She notes she has not been successful in finding a good pair of support stockings. Intake Vital Signs10/08/17 Height 5 ft 8 in 10/08/17 Weight: 208 lb 9 oz 10/08/17 Body Mass Index (BMI) 31.7 10/08/17 Blood Pressure 116/80 Intake Visit Reasons: 1 Y FU Allergies codeine Allergy (Unknown, Verified 10/08/17 14:15) tachycardia, syncope Medications Cyanocobalamin (Vitamin B-12) [B-12] 5,000 mcg PO DAILY 05/30/15 [History Confirmed 10/08/17] Magnesium Oxide [Magnesium] 400 mg PO QHS 05/30/15 [History Confirmed 10/08/17] Ascorbic Acid [Vitamin C] 1,000 mg PO QHS 10/21/16 [History Confirmed 10/08/17] metoprolol succinate ER 100 mg tablet,extended release 24 hr 100 mg PO QDAY 08/20/17 [History Confirmed 10/08/17] cholecalciferol (vitamin D3) 2,000 unit capsule 2,000 unit PO QDAY cap 10/04/17 [History Confirmed 10/08/17] lactobacillus combination no.8 3 billion cell capsule 3,000 mmu cells PO QDAY 10/08/17 [History Confirmed 10/08/17] turmeric root extract 500 mg capsule 500 mg PO QDAY 10/08/17 [History Confirmed 10/08/17] [facility] Medical History Premature ventricular contraction (Acute) Syncope (Acute) Supraventricular tachycardia (Chronic) Anemia (Acute) Diverticulitis (Acute) Fibromyalgia (Acute) IBS (irritable bowel syndrome) (Acute) Seizure (Acute) TIA (transient ischemic attack) (Acute) Recurrent syncope (Inactive) Sinus tachycardia (Inactive) Status post ablation for SVT (Inactive) Surgical History History of cholecystectomy (Resolved) History of shoulder surgery (Resolved) S/P foot surgery, left (Resolved) Status post ablation of ventricular arrhythmia (Resolved 04/14/13) Family History Mother Diabetes CAD (coronary artery disease) CVA (cerebral vascular accident) Myocardial infarction Father Hypertension CVA (cerebral vascular accident) CHF (congestive heart failure) Social History Smoking Status: Never smoker alcohol intake: never ROS Const Const: Positive for fatigue (increased the past 4 months); negative for weakness, weight gain, weight loss, frequent falls or excessive sweating Eyes Eyes: Negative for change in vision, blurry vision or transient loss of vision ENT ENT: Positive for dizziness, Negative for balance problems Cardio Chest Pain: Yes Character: tightness (prior to syncope) Palpitations: Positive for Yes (prior to syncopal episodes) Palpitations: fast Edema: None Muscle aches with walking: None Resp Respiratory: Positive for SOB with activity (breathing at baseline); negative for SOB at rest GI GI: Negative vomiting or vomiting blood/hematemesis : Negative for hematuria Musc Musc: Positive for muscle aches/ myalgia (lower back into hips and then neck into shoulders); negative for balance problems, muscle weakness or joint pain Skin Skin: Negative non-healing lesions or rash Neuro Neuro: Negative for weakness, Negative for blurry vision, Positive for dizziness, Negative for lightheadedness, Negative for frequent falls, Negative for orthostatic symptoms, Positive for syncope (x2 episodes since July), Positive for near syncope (2-3 episodes per week) Dick Hematologic/Lymphatic: Negative for easy bleeding Endo Endo: Positive for fatigue (increased the past 4 months); negative for excessive sweating Psych Psych: Negative for anxiety or depression Allergy Allergy/Immunology: Negative for hives, Negative for rash Cardiology Exam Const Appearance: cooperative, healthy appearing, comfortable, no acute distress, well developed and well groomed Nutritional Appearance: average body habitus Orientation: alert, awake and oriented x3 Head Head: normal to inspection, normocephalic and atraumatic Ears: hearing grossly normal bilaterally Nose: external nose normal Face and Sinus: face symmetric Mouth: oral mucosae normal Teeth and gingiva: dentition normal Eyes General: appearance normal, both eyes and all related structures Eyelids: eyelids normal Conjunctivae: conjunctivae normal Pupils: PERRL EOM: EOM intact bilaterally Neck Neck: normal visual inspection and full ROM Carotids: normal carotid upstroke Chest Chest inspection: normal inspection of the chest Auscultation: Bilateral: Clear to Auscultation Cardio Palpation: normal PMI Rate: regular rate Rhythm: regular rhythm Heart sounds: S1 normal and S2 normal GI GI: normal to inspection, soft, no hepatosplenomegaly and bowel sounds present Neuro General: alert, awake and oriented x3 Skin Skin: no rashes or lesions noted Extremities Pulses: Normal: Right Radial Pulse, Left Radial Pulse Lower Extremity Edema: None: Bilateral Psych Psychological: normal affect Assessment AND Plan 1. Syncope R55 Plan At the present time she continues to have episodes that appear compatible with her vasovagal mediated syncopal events. She will continue fluid intake. She was advised on other establishments that may be able to provide her with better support stockings with respect to measurements, XM that would provide her support stockings that may fit better, etc. Otherwise it was not felt to require additional cardiac diagnostic studies are therapeutic intervention at this time. 2. Premature ventricular beat I49.3 Plan She does have a history of premature ectopic beats. She is not complaining of any such beats at this time. She will continue to be followed. 3. SVT (supraventricular tachycardia) I47.1 Plan She does have a history of underlying supraventricular tachydysrhythmias. She appears to be done well with respect to those. She will continue her current medical management and follow-up. Plan Detail Other Medications Discontinued: hydrocodone-acetaminophen 5-325 mg Discontinued Reason:1 - 2 tabs PO Q4H PRN PRN Pain Pt no longer taking Additional Comments She will be scheduled for an outpatient visit in approximately 1 year unless needed sooner. Follow Up 1 Year ([facility]) Coding Level of Care Code Off vis,est,level 3 Diagnoses Syncope R55 Premature ventricular beat I49.3 SVT (supraventricular tachycardia) I47.1 10/08/17 1502 <Electronically signed by Ebenezer Durham MD> Date Ebenezer Durham MD Cosigner Signature: Date (if applicable) CC: Mane Lindquist DO ALLERGIES ALLERGIES DATE TYPE / CODE NAME / CODE REACTION SEVERITY SOURCE 09/02/2018 Drug codeine/V871021 tachycardia, Unknown [facility] Allergy/416 550(RXNORM) syncope Hospital 980776(SNOM Repository ED CT) 09/02/2018 Drug adhesive blisters Unknown [facility] Allergy/416 tape/[id number] Hospital 142257(SNOM (RXNORM) Repository ED CT) 08/22/2012 DRUG CODEINE Vomiting [facility] INGREDI/419 [facility] 538046(SNOM Repository ED CT) Drug/544033 codeine Bahai 003([facility] CT) System Repository ENCOUNTERS ENCOUNTERS ADMIT/DISCHARGE ACCOUNT NUMBER ADMITTING ENCOUNTER LOCATION SOURCE CLASS 10/03/2018 [id number] Ambulatory BMSBuilding: [place] BMS.[facility] Repository 09/09/2018/09/09/20 [id number] Ambulatory [place] [address] ding:EUGENIOCRoom Repository : AC06 09/01/2018/09/01/20 [id number] Ambulatory BMSBuilding: [place] 18 BMS.[facility] Repository 08/26/2018 [id number] Ambulatory [facility] ding:BFHLAB Repository 08/17/2018 [id number] Ambulatory [facility] ding:MRI Repository 08/11/2018/08/19/20 [id number] Ambulatory [address] Repository 08/09/2018/09/28/19 [id number] Ambulatory [address] Repository 08/01/2018/08/01/20 [id number] Ambulatory [address] Repository 07/29/2018 [id number] Adrián, [facility] ding:[facility] B Repository 07/29/2018 [id number] Ambulatory [address] [place] [address] Repository 07/19/2018 [id number] Ambulatory [facility] ding:HPRAD Repository 07/19/2018/07/19/20 [id number] Ambulatory BMSBuilding: [place] 18 BMS.[facility] Repository 07/13/2018/07/13/20 [id number] Ambulatory BMSBuilding: [place] 18 BMS.[facility] Repository 06/09/2018/06/10/20 [id number] Ambulatory [address] Repository 05/01/2018/05/01/20 [id number] Emergency [address] ding:ED Repository 04/29/2018/05/02/20 [id number] Ambulatory [address] Repository 04/08/2018 [id number] Ambulatory BMSBuilding: [place] BMS.[facility] Repository 03/28/2018 [id number] Ambulatory [facility] ding:CLSP Repository 03/28/2018 [id number] Ambulatory BMSBuilding: [place] [facility] Repository 03/25/2018 [id number] Ambulatory BMSBuilding: [place] BMS.[facility] Repository 03/24/2018/03/24/20 [id number] Ambulatory BMSBuilding: [place] 18 BMS.[facility] Repository 03/21/2018/03/21/20 [id number] Ambulatory BMSBuilding: [place] 18 BMS.[facility] Repository 03/18/2018/03/18/20 [id number] Ambulatory [address] Repository 03/04/2018 [id number] Ambulatory [facility] ding:PSN Repository 03/04/2018 [id number] Ambulatory BMSBuilding: [place] [facility] Repository 03/03/2018 [id number] Ambulatory [facility] ding:LAB Repository 03/03/2018 [id number] Ambulatory BMSBuilding: [place] BMS.[facility] Repository 01/26/2018/02/01/20 [id number] Ambulatory [address] Repository 12/14/2017/12/15/19 [id number] DIONNA, Ambulatory [address] Repository 11/26/2017/11/30/19 [id number] Ambulatory [address] Repository 11/17/2017/02/01/20 [id number] [place], Ambulatory [address] ding:[facility] Repository 11/08/2017/11/01/19 [id number] [facility] Ambulatory [address] ding:[facility] Repository 10/28/2017/10/28/19 [id number] Ambulatory [address] [place] Repository 10/27/2017/10/27/19 [id number] Ambulatory [address] Repository 10/27/2017/10/27/19 [id number] Ambulatory [address] [place] Repository 10/11/2017 [id number] Ambulatory [facility] Repository 10/08/2017/10/08/19 [id number] Ambulatory BMSBuilding: [place] 18 BMS.[facility] Repository PAYERS PAYERS ENCOUNTER GUARANTOR PAYER SUBSCRIBER SOURCE 10/03/2018 Addis [id number] Primary Addis StadlerDOB[facility] Insurance:ANTHEMPolic [id number] Number: [facility] [address]Hze: (330) [id number] Repository [phone] () Date:[id number] [address] [place] [address] [id number]: 10/03/2018 Secondary NOT GIVENUNK [place] Insurance:SELF PAY [facility] Number: Effective Repository Date:2017-10-08 09/09/2018 LINDA C Primary ADDIS M [place] [id number] Insurance:ANTHEMPolic ST[place]ERDOB[place] Number: [id number] [id number]: [phone]) [id number] Repository [phone] () Date:2878-02-75WU [address] [place] [address] [id number]: 09/09/2018 Secondary NOT GIVENUNK [place] Insurance:SELF PAY [facility] Number: Effective Repository Date:2018-08-23 09/01/2018 LINDA C Primary ADDIS M [place] [id number] CR Insurance:ANTHEMPolic STADLERDOB: [facility] [place] Number: [id number] [facility] 14464Eva: (330) [id number] Repository [phone] () Date:6496-03-96IS [address] [place] [address] 17814XQ: 09/01/2018 Secondary NOT GIVENUNK [place] Insurance:SELF PAY [facility] Number: Effective Repository Date:2018-09-01 08/26/2018 LINDA C Primary ADDIS M [place] [id number] CR Insurance:ANTHEMPolic STADLERDOB: [place] Number: [id number] Hospital 46480Kns: (330) [id number] Repository [phone] () Date:3587-91-98HS [address] [place] [address] 96677JT: 08/26/2018 Secondary NOT GIVENUNK [place] Insurance:SELF PAY [facility] Number: Effective Repository Date:2018-08-26 08/17/2018 LINDA C Primary ADDIS M [place] [id number] CR Insurance:ANTHEMPolic STADLERDOB: [address] y Number: [id number] Hospital 32650Dyt: (006) [id number] Repository [phone] () Date:6595-06-06CX [address] [place] [address] 42640SX: 08/17/2018 Secondary NOT GIVENUNK [place] Insurance:SELF PAY [facility] Number: Effective Repository Date:2018-08-09 07/29/2018 LINDA C Primary ADDIS STADLERDOB: Bahai STADLERDOB: Insurance:ANTHEMPolic [id number] y Number: Effective [address] [place] [address] Date:2018-07-20 [place] [address]Vzv: Repository [address] [place] [address] [id number] [phone]: Name:RUST ()Tel: (000) [address] [place] [address] 000-0000 () () [phone]: [phone] 07/29/2018 LINDA Primary ADDIS STADLERDOB: [place] STADLERDOB: Insurance:AnthemPolic [id number] Hospit[facility] y Number: Repository [facility] [id number] [address] [place] [address] Date:Plan Name:Health [id number]: () 07/19/2018 LINDA C Primary ADDIS M [place] [id number] CR Insurance:ANTHEMPolic STADLERDOB: [address] y Number: [id number] Hospital 13993Kra: 330 [id number] Repository [phone] () Date:5831-89-44WY [address] [place] [address] 54514QK: 07/19/2018 Secondary NOT GIVENUNK [place] Insurance:SELF PAY [facility] Number: Effective Repository Date:2018-07-19 07/19/2018 LINDA C Primary ADDIS M [place] [id number] CR Insurance:ANTHEMPolic STADLERDOB: [address] y Number: [id number] Hospital [address]22[address]Cbk: (330) [id number] Repository [phone] () Date:9592-72-68TA [address] [place] [address] 76566MW: 07/19/2018 Secondary NOT GIVENUNK [place] Insurance:SELF PAY [facility] Number: Effective Repository Date:2018-07-19 07/13/2018 LINDA Vivar Primary ADDIS M [place] [id number] CR Insurance:ANTHEMPolic ST[place]ERDOB[place] Number: [id number] Hospital 99[address]Ann: (330) [id number] Repository [phone] () Date:2001-88-18NC [address] [place] [address] 64752AA: 07/13/2018 Secondary NOT GIVENUNK [place] Insurance:SELF PAY [facility] Number: Effective Repository Date:2018-07-13 05/01/2018 LINDA Vivar Primary ADDIS M [place] [id number] CR Insurance:ANTHEMPolic STADLERDOB: [place] Number: [id number] Hospital 015[address]Klg: (330) [id number] Repository [phone] () Date:9662-10-26RR [address] [place] [address] 41033EH: 05/01/2018 Secondary NOT GIVENUNK [place] Insurance:SELF PAY [facility] Number: Effective Repository Date:2018-05-01 04/08/2018 LINDA Vivar Primary ADDIS M [place] [id number] CR Insurance:ANTHEMPolic [place]ERDOB: [place] Number: [id number] Hospital 324[address]Oql: (330) [id number] Repository [phone] () Date:3169-13-01CY [address] [place] [address] 10826VR: 04/08/2018 Secondary NOT GIVENUNK [place] Insurance:SELF PAY [facility] Number: Effective Repository Date:2018-03-18 03/28/2018 LINDA C Primary ADDIS M [place] [id number] CR Insurance:ANTHEMPolic STADLERDOB: Community [facility] [place] y Number: [id number] Hospital 24230Rnz: (330) [id number] Repository [phone] () Date:7451-57-36XZ [address] [place] [address] 16100HR: 03/28/2018 Secondary NOT GIVENUNK [place] Insurance:SELF PAY [facility] Number: Effective Repository Date:2018-03-18 03/28/2018 LINDA C Primary ADDIS M [place] [id number] CR Insurance:ANTHEMPolic STADLERDOB: [facility] CENTERjeane [place] y Number: [id number] Hospital 32338Nih: (330) [id number] Repository [phone] () Date:7053-19-69DL [id number] [place] [address] 02936TV: 03/28/2018 Secondary NOT GIVENUNK [place] Insurance:SELF PAY [facility] Number: Effective Repository Date:2018-03-28 03/25/2018 LINDA C Primary ADDIS M [place] [id number] CR Insurance:ANTHEMPolic STADLERDOB: [facility]ENTERjeane [place] y Number: [id number] Hospital 78785Uku: (330) [id number] Repository [phone] () Date:3038-62-18YT [address] [place] [address] 87622MV: 03/25/2018 Secondary NOT GIVENUNK [place] Insurance:SELF PAY [facility] Number: Effective Repository Date:2018-03-22 03/24/2018 LINDA C Primary ADDIS M [place] [id number] CR Insurance:ANTHEMPolic STADLERDOB: [facility]ilaCH[facility] CENTERjeane [place] y Number: [id number] Hospital 40209Qaj: (330) [id number] Repository [phone] () Date:2980-37-99FQ [id number] [place] [address] 09361PK: 03/24/2018 Secondary NOT GIVENUNK [place] Insurance:SELF PAY [facility] Number: Effective Repository Date:2018-03-24 03/21/2018 LINDA C Primary ADDIS M [place] [id number] Insurance:ANTHEMPolic STADLERDOB: Community [facility] y Number: [id number] [address] [id number] Repository [address]Ltf: (330) Date:4610-86-68CG [phone] () [address] [place] [address] [place] [address]MN: 03/21/2018 Secondary NOT GIVENUNK [place] Insurance:SELF PAY [facility] Number: Effective Repository Date:2018-03-21 03/04/2018 LINDA C Primary ADDIS M [place] [id number] CR Insurance:ANTHEMPolic STADLERDOB: [address] y Number: [id number] Hospital 82631Pvz: (330) [id number] Repository [phone] () Date:2685-89-48JF [address] [place] [address] [place] [address]ZU: 03/04/2018 Secondary NOT GIVENUNK [place] Insurance:SELF PAY [facility] Number: Effective Repository Date:2018-03-03 03/04/2018 LINDA C Primary ADDIS M [place] [id number] CR Insurance:ANTHEMPolic STADLERDOB: [address] y Number: [id number] [facility] [address]Mer: (330) [id number] Repository [phone] () Date:9217-08-19[address]QWBDPR, [place] [address]TF: 03/04/2018 Secondary NOT GIVENUNK [place] Insurance:SELF PAY [facility] Number: Effective Repository Date:2018-03-04 03/03/2018 LINDA C Primary ADDIS M [place] [id number] CR Insurance:ANTHEMPolic STADLERDOB: [address] y Number: [id number] [facility] [address]Hna: (330) [id number] Repository [phone] () Date:8866-67-50RW [address]XIJRXGP, [place] [address]WY: 03/03/2018 Secondary NOT GIVENUNK [place] Insurance:SELF PAY [facility] Number: Effective Repository Date:2018-03-03 03/03/2018 LINDA C Primary ADDIS M [place] [id number] Insurance:ANTHEMPolic STADLERDOB: [facility] RD y Number: [id number] [address] [id number] Repository [address]Weg: (330) Date:2974-66-54JM [phone] () [address] [place] [address] 15897LM: 03/03/2018 Secondary NOT GIVENUNK [place] Insurance:SELF PAY [facility] Number: Effective Repository Date:2018-03-03 11/17/2017 LINDA C Primary ADDIS STADLERDOB: Bahai STADLERDOB: Insurance:ANTHEMPolic [id number] [place] [address] y Number: Effective [address] [place] [address], [facility] [address] Date:2017-11-05 - [place] [address]: Repository [address] [place] [address] [id number] [phone]: Name:[employer] BOX ()Tel: (000) [address] [place] [address] [place] 000-0000 (WP) () 36344PX: 11/08/2017 LINDA C Primary ADDIS STADLERDOB: Bahai STADLERDOB: Insurance:ANTHEMPolic [id number] [place] [address] y Number: Effective [address] [place] [address], [place] [address], Date:2015-10-23 - [place] [address]Gdp: Repository [place] [address]Drv: [id number] Name:[address] ()Tel: (000) () [id number] [place] 000-0000 (WP) [address]CX: 10/08/2017 LINDA C Primary Addis StadlerDOB: [place] [id number] Insurance:ANTHEMPolic [id number] y Number: [address] [id number] Repository [address]Wnn: 330) Date:3113-69-21DV [phone] () [address]68[address]XXMCEGC, [place] [address]DH: 10/08/2017 Secondary NOT GIVENUNK [place] Insurance:SELF PAY [facility] Number: Effective Repository Date:2017-08-14
== END ==
PROVIDERS: Family Provider Family Medicine; PCP Family Medicine; Visit Provider Physician Assistant Medical
DX: Z01.818 Encounter for other preprocedural examination (principal); I47.1 Supraventricular tachycardia; I49.3 Ventricular premature depolarization; R55 Syncope and collapse
CPT/HCPCS: 36415; 80053; 84443; 85025

== ENCOUNTER 2018-09-09 09:00 | Day surgery (SDC) | payer BC, SELFPAY ==
[2018-09-09] VITALS (9 sets, daily range): BP systolic 103–119; BP diastolic 53–86; PULSE 52–67; RESP 16; TEMP 35.9–37; O2SAT 96–100; BMI 32.7
[2018-09-09 09:52] LABS: Internal QC Validated? YES +Cl - CLEAR BKGD; Pregnancy, Urine Negative Negative
[2018-09-09] MEDS: Bupivacaine 0.25% 30 ML Vial (11:57)
--- NOTE | 2018-09-09 12:03 | PCM.IMDPSTOP ---
Problem List (1) Plantar fasciitis of left foot Status: Acute (2) Left foot pain Status: Acute Immediate Post-Op Note Date of Procedure: 09/09/18 - Transfer Iron Operator: Dilip Hahn PGY2 Primary Surgeon/Physician: Rayne Thomas DPM pneumatic tester: none Pre-Operative Diagnosis: plantar fasciitis, left foot Post-Operative Diagnosis: plantar fasciitis, left foot Surgery/Procedure Performed:: open plantar fasciotomy, left foot Description of Surgical Findings:: hemostasis controlled See detailed operation report The patient tolerated the procedure and anesthesia well. Her vascular status was intact and capillary refill time was brisk to all digits of the left foot. She was transferred to the PACU with vital signs stable and vascular status intact to the left lower extremity. Postoperative orders were entered electronically. She will be discharged home upon continued stability. Estimated Blood Loss: <10 mL Specimen's removed: none Type of Anesthesia:: Local, MAC - Preoperative: 1: 1 mix of 1% lidocaine plain and 0.25% Marcaine plain, 8cc to tibial nerve left Intraoperative: 6 cc of 0.25% Marcaine plain administered in a local infiltrative manner to left heel - Admit VTE Documentation VTE Present on Admission: No VTE Mechan Device Prophylaxis: SCD's VTE Pharm Prophylaxis ordered?: No Reason prophylaxis not ordered:: Procedure Not Indicated
--- NOTE | 2018-09-09 12:06 | OP.PN_ITS ---
Problem List (1) Plantar fasciitis of left foot Status: Acute (2) Left foot pain Status: Acute Immediate Post-Op Note Date of Procedure: 09/09/18 - Flower Stripper: Dilip Hahn PGY2 Primary Surgeon/Physician: Rayne Thomsa DPM wood heel fitter machine: none Pre-Operative Diagnosis: plantar fasciitis, left foot Post-Operative Diagnosis: plantar fasciitis, left foot Surgery/Procedure Performed:: open plantar fasciotomy, left foot Description of Surgical Findings:: hemostasis controlled See detailed operation report The patient tolerated the procedure and anesthesia well. Her vascular status was intact and capillary refill time was brisk to all digits of the left foot. She was transferred to the PACU with vital signs stable and vascular status intact to the left lower extremity. Postoperative orders were entered electronically. She will be discharged home upon continued stability. Estimated Blood Loss: <10 mL Specimen's removed: none Type of Anesthesia:: Local, MAC - Preoperative: 1: 1 mix of 1% lidocaine plain and 0.25% Marcaine plain, 8cc to tibial nerve left Intraoperative: 6 cc of 0.25% Marcaine plain administered in a local infiltrative manner to left heel - Admit VTE Documentation VTE Present on Admission: No VTE Mechan Device Prophylaxis: SCD's VTE Pharm Prophylaxis ordered?: No Reason prophylaxis not ordered:: Procedure Not Indicated
--- NOTE | 2018-09-09 12:07 | DCINST_ITS ---
Discharge Diet: No Restrictions Discharge Activity: May not drive while taking narcotic pain medications. Weight Bearing Status: No weight bearing Keep extremity elevated above heart level: Left Leg Call your doctor if your incision/area has: Continuous Slow Oozing, Sudden Increased Bleeding, Increased Pain/ Swelling, Increased Redness, Foul Smelling Discharge, Swelling at the incision site Call your doctor if you observe: Fever of 101 or Higher, Numbness or Tingling, Calf discomfort, Uncontrolled pain Cleanse incision/area with: Keep Dressing Clean & Dry Allergies/Adverse Reactions: Allergies codeine Allergy (Unknown, Verified 09/02/18 11:12) tachycardia, syncope adhesive tape Allergy (Verified 09/02/18 11:12) blisters Medications to take at Discharge Cyanocobalamin (Vitamin B-12) [B-12] 5,000 mcg PO DAILY 05/30/15 Magnesium Oxide [Magnesium] 400 mg PO QHS 05/30/15 Ascorbic Acid [Vitamin C] 1,000 mg PO QHS 10/21/16 cholecalciferol (vitamin D3) 2,000 unit capsule 2,000 unit PO QDAY cap 10/04/17 lactobacillus combination no.8 3 billion cell capsule 3,000 mmu cells PO QDAY 10/08/17 Calcium (Elemental) [Os-Spenser 500] 500 mg PO DAILY@0800 09/02/18 Metoprolol Succinate [Toprol Xl] 100 mg PO QHS 09/02/18 Primary Care Physician: Mane Lindquist DO [Primary Care Provider] - Test Results: Test results from this visit will be discussed in further detail at your follow- up appointment, if applicable. Please Follow Up With: Rayne Thomas DPM When: [facility] week [facility]. Call [phone] if questions. Proposed Discharge Date: 09/09/18
--- NOTE | 2018-09-09 12:25 | OP.PCM_ITS ---
Problem List (1) Plantar fasciitis of left foot Status: Chronic (2) Left foot pain Status: Chronic Report of Operation Date of Procedure: 09/09/18 - Surgeon: Rayne Thomas DPM. Civil Engineering Teacher: Dilip Hahn PGY2 Pre-Operative Diagnosis: plantar fasciitis, left foot Post-Operative Diagnosis: plantar fasciitis, left foot Surgery/Procedure Performed:: open plantar fasciotomy, left foot Description of Surgical Findings:: hemostasis: Well-padded pneumatic left ankle tourniquet, 250 mmHg, 16 minutes Materials: 3-0 Vicryl and 4-0 nylon Complications: None Findings: Thickening of the plantar fascial band without other gross abnormalities or necrosis purchasing intern: none Type of Anesthesia:: Local, MAC - Preoperative: 1: 1 mix of 1% lidocaine plain and 0.25% Marcaine plain, 8cc to tibial nerve left Intraoperative: 6 cc of 0.25% Marcaine plain administered in a local infiltrative manner to left heel Specimen's removed: none Estimated Blood Loss (mL): <10 mL Description of Procedure: Indication: This 43-year-old pleasant female with 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 The onset is over 6 months ago and she is failed conservative care including stretching, exercises, shockwave therapy, and also radiculopathy workup and treatment. She demonstrates clinical pain on palpation to medial tubercle of the calcaneal tuberosity and plantar central heel and just distal to this attachment site. She has a negative Tinel test to the tibial nerve. Her neurovascular status is intact. Her preoperative history and physical exam performed by her primary care physician as well as preoperative laboratory diagnostic data were reviewed. No gross abnormalities were noted and she was cleared with low risk. She did also have preoperative imaging including plain x-ray and MRI. A small heel spur was noted and there was no cystic changes or evidence of stress fracture. There was marrow edema at the insertion of the plantar fascial band and thickening and inflammation of the medial and central plantar fascial bands. The preoperative indication, planned procedure, possible benefits, risks, complications, and anticipated healing time and management were discussed in detail to patient. She understands and elects to proceed with surgery at this time. No guarantees were made. She understands risks and complications may include but are not limited to the following: continued pain, swelling, scarring, recurrence, under or overcorrection, loss of sensation, need for further surgery, loss of limb, function, life. I answered all of her questions. The surgical consent and limb were signed. Procedure in detail: The patient was transported to the operating room via cart and placed on the operating table in supine position. Final verification of the patient, surgery, limb designation was performed via the timeout procedure. A well-padded pneumatic left ankle tourniquet was applied. The preoperative injection was administered by the podiatry team. MAC anesthesia was initiated by the anesthesia team. The left lower extremity was prepped and draped in the usual aseptic manner. Surgery began in the following manner after an Esmarch bandage was utilized exsanguinate the limb and the tourniquet was inflated: Attention was first directed approximately 1.5 cm distal to the plantar weightbearing surface of the medial heel. A horizontal 1.5 cm linear incision was made through the skin remaining parallel to the resting skin tension lines. Next, blunt dissection was performed through the adipose tissue and the plantar fascial band was directly visualized. A 15 blade was utilized to release the plantar fascia band including the medial aspect and the entire central band. The windlass mechanism was re-created and decreased tension was visualized and palpated. Additional tenotomy scissor was used to ensure the medial slips extending into the abductor hallucis muscle belly sheath were thoroughly released as well. This plantar fascial band did appear thick and there were no other abnormal findings. Minimal electrocauterization was utilized to control hemostasis for a superficial vein in this region. The tourniquet was deflated at this time and no pulsatile bleeding was noted. Brisk capillary refill time was noted to all digits of the surgical limb. Additional Marcaine local anesthetic was administered and a local infiltrative manner for additional pain control. One Vicryl stitch was applied for deep closure. Next, the skin was reapproximated utilizing 4-0 nylon with horizontal mattress technique. A postoperative dressing consisting of Adaptic soaked in Betadine, gauze, Kerlix and webril was applied to left foot. A well-padded posterior mold with the foot in a neutral position was next applied. After procedure: The patient tolerated the procedure and anesthesia well. She was transported to the PACU with vital signs stable and vascular status intact to left lower extremity. She was advised to ice and elevate for pain and inflammation management. She was advised to remain nonweightbearing to left lower extremity with assistive devices; she has a knee roller at home already. She is advised to keep her dressing and splint clean, dry, and intact until [facility] next week with Dr. Thomas. She was advised on safe and proper use of postoperative oral pain medication; a prescription was already provided. All of her postoperative orders were entered electronically. She will be discharged home today. Rayne Thomas, JAYLA, FACFAS [facility] - Complications none
== END 2018-09-09 13:43 | disposition home or self-care (01) ==
LOC: SDC 09:00 → AC 09:01
PROVIDERS: Anesthesiology; Family Provider Family Medicine; PCP Family Medicine; Referring Provider Podiatrist; Visit Provider Podiatrist
PROC: (CPT 28008; principal; 2018-09-09 10:15)
DX: M72.2 Plantar fascial fibromatosis (principal); Q79.6 Ehlers-Danlos syndromes; I47.1 Supraventricular tachycardia; Z79.899 Other long term (current) drug therapy; G25.81 Restless legs syndrome
CPT/HCPCS: 28008; 81025; J7030; J7120; J2405

== ENCOUNTER 2019-07-23 17:19 | Emergency (ER) | payer BC, SELFPAY ==
[2019-01-13 11:07] VITALS: BMI 33.5
[2019-07-23 17:19] VITALS: BP 137/73; PULSE 76; RESP 16; TEMP 37.1; O2SAT 98; BMI 33.2
--- NOTE | 2019-07-23 17:34 | EKG12_ITS ---
Test Reason : CP Blood Pressure : / mmHG Vent. Rate : 081 BPM Atrial Rate : 081 BPM P-R Int : 156 ms QRS Dur : 092 ms QT Int : 384 ms P-R-T Axes : 048 039 069 degrees QTc Int : 446 ms Normal sinus rhythm with sinus arrhythmia Nonspecific ST abnormality Abnormal ECG Confirmed by KARRIE ANDERSON, MIKE ([id number]), editor publications KIM CORNEJO ([id number]) on 07/25/2019 1:48:55 PM Referred By: NAS Confirmed By:MIKE YOON MD
--- NOTE | 2019-07-23 17:35 | RAD_ITS ---
STUDY: X-RAY CHEST REASON FOR EXAM: Female, 44 years old. Chest pain. TECHNIQUE: Single frontal view of the chest. COMPARISON: October 21, 2016. FINDINGS: The lungs are clear and expanded. There is no demonstrated pleural abnormality. Normal size heart. Normal mediastinum and angus. Normal visualized pulmonary arteries. Normal visualized aortic arch and descending thoracic aorta. Normal visualized thoracic spine. Normal visualized ribs, clavicles, and shoulders. There is no demonstrated abnormality of the visualized soft tissue structures of the upper abdomen. RAD/Chest 1 View (Portable) IMPRESSION: No acute cardiopulmonary process. Electronically Signed: Teri Cee MD at 18:32 EST Tel , Service support ,
--- NOTE | 2019-07-23 17:40 | ED.DCSUM_ITS ---
History of Present Illness Chief Complaint: Chest Pain Informant: Patient, Significant Other Onset: Weeks Context: Sudden Onset Timing: Intermittent Quality: Tightness Location: Chest Current Severity: Moderate Maximum Severity: Moderate Worsened by: Nothing Relieved by: Nothing Associated Symptoms: Not able to take a complete breath Narrative: She presents because of chest discomfort that started 3 hours prior to presentation. She was shopping with her . She did not notice if pushing the cart made the discomfort worse. She reported mild nausea no diaphoresis. She has history of paroxysmal supraventricular tachycardia and sees Dr. Durham. She is present on metoprolol. Mother had CT at the age of 45. She herself has no risk factors. She is a non-smoker. She denies history of PE or DVT. She denies leg pain, swelling discoloration. She denies URI symptoms. She states the pain was intermittent and lasted only minutes until today. This episode is lasted for the past 3 hours. Prior similar symptoms: No Recent Illness/Hospitalization: No - Past Medical History (1) Status post placement of implantable loop recorder Status: Acute (2) Plantar fasciitis of left foot Status: Chronic (3) Supraventricular tachycardia Status: Chronic Past Medical History - Allergies and Home Meds Allergies/Adverse Reactions: Allergies codeine Allergy (Unknown, Verified 07/23/19 17:22) tachycardia, syncope acetaminophen [From [place]] Allergy (Verified 07/23/19 17:22) Other adhesive tape Allergy (Verified 07/23/19 17:22) blisters hydrocodone [From [place]] Allergy (Verified 07/23/19 17:22) Other Primary Care Physician: Mane Lindquist DO [Primary Care Provider] - Prior records reviewed: Yes Surgical History: cholecystectomy, - - Reconstructive surgery of the right shoulder. Lives: Spouse/ Significant Other Smoking Status: Never smoker Alcohol: Rare Drugs: None - Family History Maternal Family History: Family History (Last Reviewed 01/13/19 @ 11:08 by Stephanie Mazariegos) Mother Diabetes CAD (coronary artery disease) CVA (cerebral vascular accident) Myocardial infarction Father Hypertension CVA (cerebral vascular accident) CHF (congestive heart failure) Family History: Reports: Diabetes, Hypertension Paternal Family History: Family History (Last Reviewed 01/13/19 @ 11:08 by Stephanie Mazariegos) Mother Diabetes CAD (coronary artery disease) CVA (cerebral vascular accident) Myocardial infarction Father Hypertension CVA (cerebral vascular accident) CHF (congestive heart failure) Family History: Reports: Diabetes, Hypertension Review of Systems General: Denies: Chills, Fever, Sweats Eyes: Denies: Visual changes - bilaterally, Diplopia ENT: Denies: Rhinorrhea, Sore throat Cardiovascular: Reports: Chest pain. Denies: Palpitations, Heart racing, -, - Respiratory: Reports: Dyspnea. Denies: Cough, Sputum, Dyspnea on exertion, Orthopnea, Paroxysmal nocturnal dyspnea, -, - Gastrointestinal: Denies: Abdominal pain, Nausea, Vomiting, Diarrhea, Melena, Hematochezia Genitourinary: Denies: Dysuria, Hematuria, Frequency Musculoskeletal: Denies: Myalgias, Arthralgias, Neck pain, Back pain, Swelling, Extremity Pain Skin: Denies: Rash, Wounds Neurological: Denies: Headache, Weakness, Numbness Hematologic: Denies: Easy bruising, Easy bleeding Allergy: Denies: Uticaria, Swelling of the mouth, Swelling of the tongue Physical Exam Vital Signs/Narrative: Vital Signs Temp Pulse Resp BP Pulse Ox 07/23/19 17:19 98.7 F 76 16 137/73 H 98 Inital Vital Signs reviewed: Yes General: Well nourished, Well developed, No Acute Distress Head: Normocephalic, Atraumatic Eyes: Perrl, EOMI ENT: Moist mucous membranes, No rhinorrhea Neck: Supple, Nontender Cardiovascular: Regular rate, Regular rhythm, No murmurs, Normal S1, Normal S2 Respiratory: No distress, CTA bilaterally, Chest nontender Abdomen: Soft, Nontender, Nondistended, Normal bowel sounds Back: Nontender, Normal Inspection, - - There is no asymmetry, swelling, discoloration, leg vein distention, palpable cords or tenderness along the distribution of the deep venous system. Extremities: Nontender, No edema Skin: Normal color, No rash, No Trauma. Negative for: Cyanosis, Diaphoresis, Jaundice Neurological: Alert, Oriented x3, Cranial nerves II-XII grossly intact, Normal Strength, Normal Sensation Psychological: Normal affect, Normal Mood Diagnostic/Tx/Re-eval Chest X-Ray - ED: 1 View, Read by ED Physician, Normal, Heart, Mediastinum, Bony Structures, No Acute Disease, - - Recorded noted left side. 07/23/19 17:35 Chest 1 View (Portable) [RAD] Stat Laboratory Results 07/23/19 07/23/19 17:46 17:46 WBC 8.5 RBC 4.67 Hgb 14.2 Hct 42.5 MCV 91.0 MCH 30.4 MCHC 33.4 RDW Std Deviation 39.6 RDW Coeff of Faiza 11.8 Plt Count 292 MPV 10.9 Immature Gran % (Auto) 0.400 Neut % (Auto) 64.4 Lymph % (Auto) 26.8 Barnes % (Auto) 6.6 Eos % (Auto) 1.2 Baso % (Auto) 0.6 Absolute Neuts (auto) 5.5 Absolute Lymphs (auto) 2.27 Nucleated RBC % 0 Sodium 142 Potassium 3.5 Chloride 105 Carbon Dioxide 29.0 Anion Gap 8 BUN 10 Creatinine 0.78 Estim Creat Clear Calc 91.88 Est GFR (MDRD) Af Amer 102 Est GFR (MDRD) Non-Af 84 BUN/Creatinine Ratio 12.8 Glucose 102 Calcium 8.7 Troponin I < 0.015 Laboratory results are unremarkable. Obtain a 3-hour troponin. Repeat troponin less than 0.015. Delta 0. Therefore will discharge to home - Rhythm Strip Rhythm Strip: Sinus Rhythm Rate: 72 Ectopy: None - EKG Initial EKG Interpretation: Sinus Rhythm - Sinus rhythm with ventricular rate of 81. AZ interval 156 ms. QS duration 92 ms. QT duration 384 ms. Bourg is normal. EKG is unremarkable. Prior: Unchanged - Medical Decision Making Diagnosis includes noncardiac chest pain, esophageal spasm, cardiomyopathy, pulmonary embolus. Patient is PERC negative. EKG, chest x-ray and appropriate blood work was obtained including troponin. ED Disposition - Plan for ED Patient: Disposition: Home or Assisted Living Diagnosis: Chest pain Instructions: CHEST PAIN, Uncertain Cause Referrals: Mane Lindquist DO [Primary Care Provider] - 3-5 Days
[2019-07-23] MEDS: Aspirin 81 MG TAB.CHEW 324 MG PO (17:46)
[2019-07-23 18:02] LABS: Absolute Lymphocyte Count 2.27 X10^3/uL (0.83-4.51); Absolute Neutrophil Count 5.5 X10^3/uL (2.0-7.7); Basophil# 0.05 X10^3/uL; Basophil% 0.6 % (0-1); Eosinophils% 1.2 % (0-5); Hematocrit 42.5 % (37-47); Hemoglobin 14.2 g/dL (12.0-15.0); Lymphocyte # 2.27 X10^3/ul (4.0); Lymphocyte % 26.8 % (19-41); Mean Corp Hgb Conc 33.4 g/dL (32-36); Mean Corpuscular Hgb 30.4 pg (27.0-32.0); Mean Platelet Vol. 10.9 fl (6.2-12.0); Monocyte# 0.56 X10^3/uL; Monocyte% 6.6 % (0-10); NRBC Flagged by Analyzer 0 % (0-5); Neutrophil # 5.47 X10^3/uL (2.7-7.7); Neutrophil % 64.4 % (47-70); Platelet Count 292 K/mm3 (150-450); RBC Distribution Width CV 11.8 % (11.6-14.6); RBC Distribution Width SD 39.6 fl (35.1-43.9); Red Blood Count 4.67 M/mm3 (4.2-5.4); White Blood Count 8.5 K/mm3 (4.4-11.0)
[2019-07-23 18:16] LABS: Anion Gap 8 (5-15); BUN 10 mg/dL (7-18); BUN/Creat Ratio 12.8 RATIO (10-20); Calcium,Total 8.7 mg/dL (8.5-10.1); Chloride 105 mmol/L (98-107); Creatinine, Serum 0.78 mg/dL (0.55-1.02); EST Glomerular Filtration Rate 84 mL/min (>60); Est Glom Filt Rate - Afr Amer 102 mL/min (>60); Estimated Creatinine Clearance 91.88 ml/min; Glucose 102 mg/dL (74-106); Potassium 3.5 mmol/L (3.5-5.1); Sodium Level 142 mmol/L (136-145)
[2019-07-23 19:02] VITALS: BP 111/49; PULSE 77; RESP 14; O2SAT 98
[2019-07-23 20:44] VITALS: BP 112/47; PULSE 71; RESP 17; O2SAT 99
== END 2019-07-23 21:26 | disposition home or self-care (01) ==
PROVIDERS: Emergency Provider Emergency Medicine; Family Provider Family Medicine; PCP Family Medicine
DX: R07.89 Other chest pain (principal); R11.0 Nausea; R06.00 Dyspnea, unspecified; I47.1 Supraventricular tachycardia; M72.2 Plantar fascial fibromatosis; Z95.818 Presence of other cardiac implants and grafts; Z79.899 Other long term (current) drug therapy
CPT/HCPCS: 71045; 80048; 84484; 85025; 93005; 99285; A4216

== ENCOUNTER 2019-10-08 16:34 | Observation (INO) | payer BC, SELFPAY ==
[2019-10-08] VITALS (12 sets, daily range): BP systolic 109–138; BP diastolic 44–82; PULSE 104–154; RESP 11–26; TEMP 37.8–39.8; O2SAT 18–99; BMI 30.4; BMI 32.3
--- NOTE | 2019-10-08 16:51 | ED.RN ---
last had 600mg motrin po at 1100
--- NOTE | 2019-10-08 17:17 | RAD_ITS ---
STUDY: X-RAY CHEST REASON FOR EXAM: Female, 44 years old. RECENT ONSET OF FEVER, COUGH, CHILLS, FLU LIKE SYMPTOMS TECHNIQUE: AP portable COMPARISON: July 23, 2019 FINDINGS: The lungs are clear and expanded. There is no demonstrated pleural abnormality. Normal size heart. Normal mediastinum and angus. Normal visualized pulmonary arteries. Normal visualized aortic arch and descending thoracic aorta. Normal visualized thoracic spine. Normal visualized ribs, clavicles, and shoulders. There is no demonstrated abnormality of the visualized soft tissue structures of the upper abdomen. No significant change since prior exam RAD/Chest 1 View (Portable) IMPRESSION: Normal x-ray examination of the chest. Electronically Signed: Arron Dover MD at 18:09 EST , Service support ,
--- NOTE | 2019-10-08 17:17 | EKG12_ITS ---
Test Reason : Blood Pressure : / mmHG Vent. Rate : 123 BPM Atrial Rate : 123 BPM P-R Int : 172 ms QRS Dur : 088 ms QT Int : 304 ms P-R-T Axes : 045 040 053 degrees QTc Int : 435 ms Sinus tachycardia Nonspecific ST abnormality Abnormal ECG Confirmed by AVIS ANDERSON, RADHA ([id number]), editor house organ KIM CORNEJO ([id number]) on 10/11/2019 1:38:21 PM Referred By: RAJWINDER Confirmed By:RADHA ALBARRAN MD
[2019-10-08] MEDS: 0.9% Normal Saline 1,000 ML 999 ML IV ×2 (17:48→21:32)
--- NOTE | 2019-10-08 17:51 | ED.VIS.GEN ---
History of Present Illness Chief Complaint: Fever Informant: Patient Onset: Yesterday Context: Gradual Onset Narrative: Patient is a 44-year-old female with history of SVT, Fibromyalgia, diverticulitis, IBS, sinus tachycardia and TIAs presenting from home for flulike symptoms. She states she started feeling sick today. She has associated fatigue, cough is mildly productive of phlegm, myalgias, dizziness, headache with photosensitivity and nausea. She denies any sick contacts. She denies any vision changes. She does have some chest tightness but attributes that to the coughing. She denies any palpitations. She notes that her heart rate tends to go very fast when she is sick. She denies any rash, diarrhea, vomiting or urinary symptoms. Patient last had Motrin at 11 AM, 6 hours ago. Past Medical History - Allergies and Home Meds Allergies/Adverse Reactions: Allergies codeine Allergy (Unknown, Verified 07/23/19 17:22) tachycardia, syncope adhesive tape Allergy (Verified 07/23/19 17:22) blisters hydrocodone [From [place]] Allergy (Verified 07/23/19 17:22) Other Primary Care Physician: Mane Lindquist DO [Primary Care Provider] - Past Medical History: - - SVT, fibromyalgia, IBS, history of TIA Surgical History: cholecystectomy, - - Reconstructive surgery of the right shoulder. Smoking Status: Never smoker - Family History Maternal Family History: Family History (Last Reviewed 01/13/19 @ 11:08 by Stephanie Mazariegos) Mother Diabetes CAD (coronary artery disease) CVA (cerebral vascular accident) Myocardial infarction Father Hypertension CVA (cerebral vascular accident) CHF (congestive heart failure) Family History: Reports: Diabetes, Hypertension Paternal Family History: Family History (Last Reviewed 01/13/19 @ 11:08 by Stephanie Mazariegos) Mother Diabetes CAD (coronary artery disease) CVA (cerebral vascular accident) Myocardial infarction Father Hypertension CVA (cerebral vascular accident) CHF (congestive heart failure) Family History: Reports: Diabetes, Hypertension Review of Systems General: Reports: Chills, Fever, Malaise, - - Dizziness. Denies: Sweats Eyes: Denies: Visual changes - bilaterally, Diplopia ENT: Denies: Bilateral ear pain, Rhinorrhea, Sore throat Cardiovascular: Reports: Chest pain, Heart racing. Denies: Palpitations Respiratory: Reports: Cough, Sputum. Denies: Dyspnea, Dyspnea on exertion Gastrointestinal: Reports: Nausea. Denies: Abdominal pain, Vomiting, Diarrhea, Melena, Hematochezia Genitourinary: Denies: Dysuria, Hematuria, Frequency Musculoskeletal: Reports: Myalgias. Denies: Back pain, Extremity Pain Skin: Denies: Rash, Wounds Neurological: Reports: Headache. Denies: Weakness, Numbness Physical Exam Vital Signs/Narrative: Vital Signs Temp Pulse Resp BP Pulse Ox 10/08/19 17:48 102.5 F H 10/08/19 17:18 98 10/08/19 17:17 102.5 F H 126 H 26 H 109/81 H 97 10/08/19 16:51 102.5 F H 10/08/19 16:35 103.7 F H 154 H 20 H 128/82 H 99 Inital Vital Signs reviewed: Yes General: Well nourished, Well developed, No Acute Distress Head: Normocephalic, Atraumatic Eyes: Perrl, EOMI ENT: Moist mucous membranes, No rhinorrhea, TM's clear Neck: Supple, Nontender, No JVD Cardiovascular: Regular rhythm, No murmurs, Tachycardia Respiratory: No distress, CTA bilaterally, Chest nontender. Negative for: Rhonchi, Wheezing Abdomen: Soft, Nontender, Nondistended, Normal bowel sounds Back: Nontender, Normal Inspection. Negative for: CVA tenderness Extremities: Nontender, No edema Skin: Normal color, No rash Neurological: Alert, Oriented x3, Cranial nerves II-XII grossly intact, Normal Strength, Normal Sensation Psychological: Normal affect, Normal Mood Diagnostic/Tx/Re-eval Chest X-Ray - ED: 2 View, Read by ED Physician, Read by Radiologist, No Acute Disease Clinical Impression(s) from Imaging Studies Chest X-Ray 10/08/19 17:17 IMPRESSION: Normal x-ray examination of the chest. Electronically Signed: Arron Dover MD at 18:09 EST , Service support , Laboratory Data 10/08/19 10/08/19 10/08/19 17:30 17:30 17:30 WBC 7.9 RBC 4.92 Hgb 14.8 Hct 43.4 MCV 88.2 MCH 30.1 MCHC 34.1 RDW Std Deviation 38.8 RDW Coeff of Faiza 12.0 Plt Count 291 MPV 10.9 Immature Gran % (Auto) 0.300 Neut % (Auto) 85.6 H Lymph % (Auto) 6.6 L [place] % (Auto) 6.6 Eos % (Auto) 0.3 Baso % (Auto) 0.6 Absolute Neuts (auto) 6.7 Absolute Lymphs (auto) 0.52 L Nucleated RBC % 0 Differential Comment SCANNED PT 13.4 INR 1.0 APTT 28.2 Sodium 138 Potassium 3.6 Chloride 108 H Carbon Dioxide 24.0 Anion Gap 6 BUN 8 Creatinine 0.86 Estim Creat Clear Calc 83.33 Est GFR (MDRD) Af Amer 92 Est GFR (MDRD) Non-Af 76 BUN/Creatinine Ratio 9.3 L Glucose 90 Lactic Acid Calcium 9.0 Total Bilirubin 0.80 AST 22 ALT 40 Alkaline Phosphatase 81 Troponin I < 0.015 Total Protein 7.8 Albumin 4.0 Globulin 3.8 Albumin/Globulin Ratio 1.1 Urine Color Urine Clarity Urine pH Ur Specific [place] Urine Protein Urine Glucose (UA) Urine Ketones Urine Occult Blood Urine Nitrite Urine Bilirubin Urine Urobilinogen Ur Leukocyte Esterase Urine RBC Urine WBC Ur Squamous Epith Cells Urine Bacteria Urine Mucus 10/08/19 10/08/19 17:30 17:30 WBC RBC Hgb Hct MCV MCH MCHC RDW Std Deviation RDW Coeff of Faiza Plt Count MPV Immature Gran % (Auto) Neut % (Auto) Lymph % (Auto) [place] % (Auto) Eos % (Auto) Baso % (Auto) Absolute Neuts (auto) Absolute Lymphs (auto) Nucleated RBC % Differential Comment PT INR APTT Sodium Potassium Chloride Carbon Dioxide Anion Gap BUN Creatinine Estim Creat Clear Calc Est GFR (MDRD) Af Amer Est GFR (MDRD) Non-Af BUN/Creatinine Ratio Glucose Lactic Acid 1.4 Calcium Total Bilirubin AST ALT Alkaline Phosphatase Troponin I Total Protein Albumin Globulin Albumin/Globulin Ratio Urine Color Yellow Urine Clarity Clear Urine pH 7.0 Ur Specific [place] 1.010 Urine Protein Negative Urine Glucose (UA) Normal Urine Ketones Negative Urine Occult Blood Negative Urine Nitrite Negative Urine Bilirubin Negative Urine Urobilinogen Normal Ur Leukocyte Esterase Negative Urine RBC 0 SEEN Urine WBC 0 SEEN Ur Squamous Epith Cells 0-5 SEEN Urine Bacteria 0 SEEN Urine Mucus 0 SEEN - Rhythm Strip Rhythm Strip: Sinus Tach Rate: 123 Ectopy: None - EKG Initial EKG Interpretation: Sinus Tachycardia, - - Sinus tachycardia at a rate of 123 Normal intervals Normal axis Normal ST segments - Medical Decision Making Patient is evaluated for 1 day of fever and flulike symptoms. She appears nontoxic but uncomfortable. Patient is significantly tachycardic however it is sinus. Patient does have a loop reported because of a history of SVT and syncope. Her last interrogation this month showed no tachycardic events and actually 1 bradycardic event. As patient is also febrile she is given antipyretic and a sepsis work-up is performed. Flu swab is negative.Patient has a normal white blood cell count, hemoglobin and platelet count. Her BMP does not show any significant abnormalities as well as her troponin and liver enzymes. Urinalysis is normal not consistent with infection. Chest x-ray does not show any acute infiltrate or other acute process. Patient is given a total of 2 L of IV fluid in the emergency room. She is also given a dose of Zofran and a dose of Phenergan because of persistent nausea and episode of vomiting emergency room. She does not have any associate abdominal pain. Patient has a normal lactic acid. She does not have an obvious source of infection therefore she is not started any antibiotics. Patient's fever does improve temporarily in the ER but then starts to return. The lowest I observe the patient's heart rate was 108 and that is when she was sleeping. The second she woke up started moving around her heart rate immediately went back up to the 120s. I am concerned because of patient's persistent tachycardia that is refractory to fluids. Differential would include endocarditis and pericarditis. I did order TSH which is pending at time of disposition as thyroid storm is also on the differential. Patient does not have any shortness of breath or hypoxia. I have a lower suspicion for ACS or PE. Patient is offered admission for evaluation of her persistent tachycardia, she is agreeable with this. She is stable for general medical floor at time of disposition. ED Disposition - Plan for ED Patient: Disposition: Acute [facility] Diagnosis: Febrile illness, acute, Nausea and vomiting, Tachycardia Referrals: Mane Lindquist DO [Primary Care Provider] -
[2019-10-08 17:55] LABS: Absolute Lymphocyte Count 0.52 X10^3/uL (0.83-4.51); Absolute Neutrophil Count 6.7 X10^3/uL (2.0-7.7); Bacteria 0 SEEN /hpf (None Seen); Basophil# 0.05 X10^3/uL; Basophil% 0.6 % (0-1); Eosinophil# 0.02 X10^3/uL; Eosinophils% 0.3 % (0-5); Hematocrit 43.4 % (37-47); Hemoglobin 14.8 g/dL (12.0-15.0); Lymphocyte # 0.52 X10^3/ul (4.0); Lymphocyte % 6.6 % (19-41); Mean Corp Hgb Conc 34.1 g/dL (32-36); Mean Corpuscular Hgb 30.1 pg (27.0-32.0); Mean Corpuscular Volume 88.2 fL (81-99); Mean Platelet Vol. 10.9 fl (6.2-12.0); Monocyte# 0.52 X10^3/uL; Monocyte% 6.6 % (0-10); Mucous, Urine 0 SEEN /hpf (<or=2+); NRBC Flagged by Analyzer 0 % (0-5); Neutrophil # 6.74 X10^3/uL (2.7-7.7); Neutrophil % 85.6 % (47-70); POSITIVE DIFFERENTIAL YES; Platelet Count 291 K/mm3 (150-450); RBC Distribution Width SD 38.8 fl (35.1-43.9); Red Blood Cells-Urine 0 SEEN /hpf (0-5); Red Blood Count 4.92 M/mm3 (4.2-5.4); White Blood Cells 0 SEEN /hpf (0-5); White Blood Count 7.9 K/mm3 (4.4-11.0)
[2019-10-08 18:04] LABS: Prothrombin Time (Protime)PT. 13.4 SECONDS (11.7-14.9)
[2019-10-08 18:05] LABS: Partial Thromboplast Time 28.2 Seconds (24.1-36.2)
[2019-10-08 18:08] LABS: ALB/GLOB Ratio 1.1 RATIO (0.9-2.4); AST(SGOT) 22 U/L (15-37); Alanine Aminotransfer ALT/SGPT 40 U/L (13-56); Alkaline Phosphatase 81 U/L (45-117); Anion Gap 6 (5-15); BUN 8 mg/dL (7-18); BUN/Creat Ratio 9.3 RATIO (10-20); Chloride 108 mmol/L (98-107); Creatinine, Serum 0.86 mg/dL (0.55-1.02); EST Glomerular Filtration Rate 76 mL/min (>60); Est Glom Filt Rate - Afr Amer 92 mL/min (>60); Estimated Creatinine Clearance 83.33 ml/min; Globulin 3.8 g/dL (2.2-4.2); Glucose 90 mg/dL (74-106); Potassium 3.6 mmol/L (3.5-5.1); Protein, Total 7.8 g/dL (6.4-8.2); Sodium Level 138 mmol/L (136-145)
[2019-10-08 18:11] LABS: Differential Indicated SCAN CRITERIA MET
[2019-10-08 18:15] LABS: Color, Urine Yellow (Yellow); Glucose, Dipstick Normal (Normal); Ketone-Dipstick Negative (Negative); Leukocyte Esterase-Dipstick Negative /ul (Negative); Nitrite-Dipstick Negative (Negative); Occult Blood-Urine Negative /ul (Negative); Protein-Dipstick Negative (Negative); Urine Bilirubin Dipstick Negative (Negative); Urine Clarity Clear (Clear); Urine Urobilinogen Normal (Normal)
[2019-10-08] MEDS: Ketorolac 15 MG/ML Vial IV (18:22)
[2019-10-08] MEDS: Ondansetron 4 MG/2 ML Vial IV (18:22)
[2019-10-08 18:28] LABS: Differential Comment SCANNED
[2019-10-08 18:31] LABS: Lactic Acid 1.4 mmol/L (0.4-1.9)
[2019-10-08 18:34] LABS: Squamous Epithelial Cells - UA 0-5 SEEN /hpf (5-10)
[2019-10-08] MEDS: proMETHazine 25 MG/ML Syringe 12.5 MG IV (21:32)
--- NOTE | 2019-10-08 22:46 | PCM.HP.STD ---
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 Associated with her symptoms is fever; productive cough; nausea; vomiting; chills; rigors; lightheadedness; presyncope; mild shortness of breath; anorexia; and sore throat from cough. T-max at the emergency department was 103.7. Patient was found to have tachycardia with heart rate as high as 154.. Also she had tachypnea with highest recorded respiratory rate of 26 Urine analysis at emergency department was unremarkable. Chest x-ray was unremarkable. Past Medical History Past Medical History (Chronic Problems): Chronic Problems (Last Reviewed 10/09/19 @ 00:16 by Cisco Hutchins MD) Plantar fasciitis of left foot (Chronic) Left foot pain (Chronic) Status post placement of implantable loop recorder (Chronic 03/28/18) Premature ventricular contraction (Chronic) Syncope (Chronic) Supraventricular tachycardia (Chronic) Medical History: Medical History (Last Reviewed 10/09/19 @ 02:41 by Cisco Hutchins MD) Premature ventricular contraction (Chronic) I49.3 Syncope (Chronic) R55 Supraventricular tachycardia (Chronic) I47.1 Anemia D64.9 Diverticulitis K57.92 Fibromyalgia M79.7 IBS (irritable bowel syndrome) K58.9 Seizure R56.9 Post op TIA (transient ischemic attack) G45.9 Recurrent syncope (Inactive) Sinus tachycardia (Inactive) R00.0 Status post ablation for SVT (Inactive) Allergies codeine Allergy (Unknown, Verified 07/23/19 17:22) tachycardia, syncope acetaminophen [From [place]] Allergy (Verified 07/23/19 17:22) Other adhesive tape Allergy (Verified 07/23/19 17:22) blisters hydrocodone [From [place]] Allergy (Verified 07/23/19 17:22) Other Home Medications: Ambulatory Orders Medication Instructions Recorded Cyanocobalamin (Vitamin B-12) 5,000 mcg PO QHS 05/30/15 [B-12] Magnesium Oxide [Magnesium] 400 mg PO QHS 05/30/15 Ascorbic Acid [Vitamin C] 1,000 mg PO QHS 10/21/16 cholecalciferol (vitamin D3) 50 2,000 unit PO QHS cap 10/04/17 mcg (2,000 unit) capsule lactobacillus combination no.8 3 3,000 mmu cells PO QHS 10/08/17 billion cell capsule Calcium (Elemental) [Os-Spenser 500] 500 mg PO QHS 09/02/18 Cbd 10/08/19 Metoprolol(XL)Succ [Toprol Xl 100 mg PO QHS 10/09/19 (Beta Sandra)] Surgical History: Surgical History (Last Reviewed 10/09/19 @ 02:41 by Cisco Hutchins MD) Status post placement of implantable loop recorder (Chronic) Onset Date: 03/28/18 Z95.818 History of cholecystectomy Z98.890, Z90.49 History of shoulder surgery Z98.890 Rt S/P foot surgery, left Z98.890 Status post ablation of ventricular arrhythmia Onset Date: ~04/14/13 Z98.890, Z86.79 for SVT 04/14/13 Surgical History: cholecystectomy, - - Reconstructive surgery of the right shoulder. Psychiatric History: No pertinent psych hx [employer] History: No pertinent [employer] history Lives: With Family Smoking Status: Never smoker - *Family History Maternal Family History: Family History (Last Reviewed 10/09/19 @ 02:41 by Cisco Hutchins MD) Mother Diabetes CAD (coronary artery disease) CVA (cerebral vascular accident) Myocardial infarction Father Hypertension CVA (cerebral vascular accident) CHF (congestive heart failure) History Items: Diabetes, Hypertension Paternal Family History: Family History (Last Reviewed 10/09/19 @ 02:41 by Cisco Hutchins MD) Mother Diabetes CAD (coronary artery disease) CVA (cerebral vascular accident) Myocardial infarction Father Hypertension CVA (cerebral vascular accident) CHF (congestive heart failure) History Items: Diabetes, Hypertension Review of Systems Constitutional: Reports: Anorexia, Chills, Fever, Malaise, Fatigue. Denies: Weight Change HEENT: Denies: Head Aches, Sinus Congestion, Sinus Drainage Cardiovascular: Reports: Light Headedness. Denies: Chest Pain, Palpitations Respiratory: Reports: Cough, Shortness of Breath, Sputum production Gastrointestinal: Reports: Nausea, Vomiting. Denies: Abdominal Pain Genitourinary: Denies: Dysuria Musculoskeletal: Denies: Joint Pain, Joint Tenderness Skin: Denies: Rash, Wounds Neurological: Denies: Numbness, Tingling, Focal weakness Psychiatric: Denies: Anxiety, Depression, Homicidal Ideations, Suicidal Ideations Hematologic/ Lymphatic: Denies: Easy Bruising, Easy Bleeding VTE Information - Inpt Only VTE Present on Admission: No VTE Mechan Device Prophylaxis: None VTE Pharm Prophylaxis ordered?: Yes Patient Problems: Active and Suspected Problems (Last Reviewed 10/09/19 @ 00:16 by Cisco Hutchins MD) Febrile illness, acute (Acute) Nausea and vomiting (Acute) Tachycardia (Acute) Acute febrile illness (Acute) - Physical Exam Vitals/I&O's: Vital Signs Temp Pulse Resp BP Pulse Ox 100.8 F H 108 H 18 118/51 L 98 10/08/19 21:52 10/08/19 21:52 10/08/19 21:52 10/08/19 21:52 10/08/19 21:52 Oxygen Delivery Method Room Air Weight: 90.718 kg Body Mass Index (BMI) 30.4 Intake and Output for Last 24 Hours 10/06/19 10/07/19 10/08/19 23:59 23:59 23:59 Intake Total 1000 / 1000 Balance 1000 / 1000 General: Alert, Oriented x3, Cooperative HEENT: Atraumatic, PERRLA, EOMI, Normocephalic Neck: Supple, No JVD, Negative Carotid Bruits Lungs: Clear to auscultation, Normal air movement, Tachypneic Cardiovascular: Regular Rhythm, Normal S1, Normal S2, No murmurs, Tachycardic Abdomen: Bowel Sounds Present, Soft, Non Tender Extremities: No edema, Capillary Refill Less than 3 Seconds Skin: No rashes, No breakdown Musculoskeletal: No Tenderness to Palpation of Joints or Extremities Neurological: Cranial nerves II-XII grossly intact Psych/Mental Status: Normal Affect, Appropriate Microbiology Past 72 Hours 10/08/19 17:34 Mucosa - Nose Influenza Types A,B Direct FA (LEEANNE) - Final Laboratory Results 10/08/19 17:30: WBC 7.9, RBC 4.92, Hgb 14.8, Hct 43.4, MCV 88.2, MCH 30.1, MCHC 34.1, RDW Std Deviation 38.8, RDW Coeff of Faiza 12.0, Plt Count 291, MPV 10.9, Immature Gran % (Auto) 0.300, Neut % (Auto) 85.6 H, Lymph % (Auto) 6.6 L, [place] % (Auto) 6.6, Eos % (Auto) 0.3, Baso % (Auto) 0.6, Absolute Neuts (auto) 6.7, Absolute Lymphs (auto) 0.52 L, Nucleated RBC % 0, Differential Comment SCANNED 10/08/19 17:30: PT 13.4, INR 1.0, APTT 28.2 10/08/19 17:30: Sodium 138, Potassium 3.6, Chloride 108 H, Carbon Dioxide 24.0, Anion Gap 6, BUN 8, Creatinine 0.86, Estim Creat Clear Calc 83.33, Est GFR (MDRD) Af Amer 92, Est GFR (MDRD) Non-Af 76, BUN/Creatinine Ratio 9.3 L, Glucose 90, Calcium 9.0, Total Bilirubin 0.80, AST 22, ALT 40, Alkaline Phosphatase 81, Troponin I < 0.015, Total Protein 7.8, Albumin 4.0, Globulin 3.8, Albumin/Globulin Ratio 1.1 10/08/19 17:30: Lactic Acid 1.4 10/08/19 17:30: Urine Color Yellow, Urine Clarity Clear, Urine pH 7.0, Ur Specific [place] 1.010, Urine Protein Negative, Urine Glucose (UA) Normal, Urine Ketones Negative, Urine Occult Blood Negative, Urine Nitrite Negative, Urine Bilirubin Negative, Urine Urobilinogen Normal, Ur Leukocyte Esterase Negative, Urine RBC 0 SEEN, Urine WBC 0 SEEN, Ur Squamous Epith Cells 0-5 SEEN, Urine Bacteria 0 SEEN, Urine Mucus 0 SEEN Assessment/Plan All Active Problems (Last Reviewed 10/09/19 @ 00:16 by Cisco Hutchins MD) Febrile illness, acute (Acute) Nausea and vomiting (Acute) Tachycardia (Acute) Acute febrile illness (Acute) The patient is a 44 year old F with a significant history of TIA; SVT; ventricular arrhythmia with ablation; implanted loop recorder who presented to emergency department with malaise; fever; productive cough; nausea; vomiting; chills; rigors; lightheadedness; presyncope; mild shortness of breath; anorexia; and sore throat from cough and found to have a T-max of 103.7; heart rate as high as 154; and tachypnea with highest respiratory rate of 26; consistent with acute febrile illness. Acute febrile illness Patient meets SIRS criteria with tachycardia; tachypnea and fever. She has no leukocytosis There is no obvious source of infection. Blood culture x2 was ordered emergency department; follow. Urine culture is unremarkable. Chest x-ray is unremarkable. Rapid influenza screen was negative. We will get a comprehensive respiratory pathogen panel Placed on telemetry at [facility] for antiemetics; Tylenol for fever and pain. Supportive treatment with lactated Ringer's with potassium. History of SVT;PVC; ventricular arrhythmia and Sinus tachycardia Sinus tachycardia on presentation. Interrogation of loop recorder on 08/30/19 showed only one sinus bradycardia episode with 39 bpm; otherwise unremarkable. Metoprolol continued. IV fluids as above. DVT prophylaxis Subcutaneous Lovenox Code Visit OBSV E&M: [id number] Initial observation care L3
[2019-10-08] MEDS: Acetaminophen 500 MG Tablet 1000 MG PO (23:04)
[2019-10-08 23:23] LABS: Thyroid Stim Hormone (TSH) 0.72 uIU/mL (0.358-3.74)
[2019-10-09] VITALS (18 sets, daily range): BP systolic 118–135; BP diastolic 53–84; PULSE 90–121; RESP 15–20; TEMP 37.9–39.3; O2SAT 93–96
[2019-10-09] MEDS: Metoprolol(XL)Succ 100 MG Tablet PO ×2 (01:21→21:06)
[2019-10-09 05:59] LABS: Absolute Lymphocyte Count 0.52 X10^3/uL (0.83-4.51); Absolute Neutrophil Count 2.8 X10^3/uL (2.0-7.7); Basophil# 0.02 X10^3/uL; Basophil% 0.5 % (0-1); Eosinophil# 0.06 X10^3/uL; Eosinophils% 1.6 % (0-5); Hematocrit 35.4 % (37-47); Hemoglobin 11.6 g/dL (12.0-15.0); Lymphocyte # 0.52 X10^3/ul (4.0); Lymphocyte % 13.4 % (19-41); Mean Corp Hgb Conc 32.8 g/dL (32-36); Mean Corpuscular Hgb 29.2 pg (27.0-32.0); Mean Corpuscular Volume 89.2 fL (81-99); Mean Platelet Vol. 11.7 fl (6.2-12.0); Monocyte# 0.47 X10^3/uL; Monocyte% 12.1 % (0-10); NRBC Flagged by Analyzer 0 % (0-5); Neutrophil # 2.79 X10^3/uL (2.7-7.7); Neutrophil % 72.1 % (47-70); POSITIVE DIFFERENTIAL YES; Platelet Count 204 K/mm3 (150-450); RBC Distribution Width CV 12.1 % (11.6-14.6); RBC Distribution Width SD 39.5 fl (35.1-43.9); Red Blood Count 3.97 M/mm3 (4.2-5.4); White Blood Count 3.9 K/mm3 (4.4-11.0)
[2019-10-09] MEDS: Acetaminophen 325 MG Tablet 650 MG PO ×2 (05:59→15:20)
[2019-10-09 06:08] LABS: Anion Gap 5 (5-15); BUN 8 mg/dL (7-18); BUN/Creat Ratio 10.9 RATIO (10-20); Calcium,Total 8.2 mg/dL (8.5-10.1); Chloride 112 mmol/L (98-107); Creatinine, Serum 0.73 mg/dL (0.55-1.02); EST Glomerular Filtration Rate 91 mL/min (>60); Est Glom Filt Rate - Afr Amer 110 mL/min (>60); Estimated Creatinine Clearance 98.17 ml/min; Glucose 86 mg/dL (74-106); Potassium 3.7 mmol/L (3.5-5.1); Sodium Level 141 mmol/L (136-145)
[2019-10-09 06:23] LABS: Differential Indicated SCAN CRITERIA MET
--- NOTE | 2019-10-09 10:06 | PN_ITS ---
Patient Problems: Active and Suspected Problems (Last Reviewed 10/09/19 @ 02:41 by Cisco Hutchins MD) Febrile illness, acute (Acute) Nausea and vomiting (Acute) Tachycardia (Acute) Acute febrile illness (Acute) Subjective: Patient seen and examined. SHe was admitted with a complaint of shortness of breath, fever and chills, and dry cough. She says she took her foster child to a doctor's appointment; she sees had just returned from [facility] in [facility] and was coughing and had an upper respiratory illness and she thinks she may have caught it from the doctor's office. Patient states she feels terrible and is still coughing. She still has chills and mild shortness of breath. She denies any chest pain, nausea vomiting or diarrhea or abdominal pain. 12 point review of systems otherwise negative. Labs and vitals reviewed. Temperature is 100.2 ?F this morning respiratory rate is 15 and pulse rate is down to 96. Vitals/I&O's: Vital Signs Temp Pulse Resp BP Pulse Ox 100.2 F H 96 15 128/65 H 94 10/09/19 07:12 10/09/19 08:00 10/09/19 05:56 10/09/19 04:32 10/09/19 04:32 Oxygen Delivery Method Room Air Weight: 215 lb 7 oz Body Mass Index (BMI) 32.3 Intake and Output for Last 24 Hours 10/07/19 10/08/19 10/09/19 23:59 23:59 23:59 Intake Total 1999 Output Total 250 / 250 Balance 1999 -250 / -250 General: Alert, Oriented x3, Cooperative, Lethargic, - - looks very uncomfortable HEENT: Atraumatic, PERRLA, EOMI, Normocephalic Oral: Dry Mucosa Neck: Supple, No JVD, Negative Carotid Bruits Lungs: - - mildly decreased breath sounds bibasally, no wheezes or crackles. Cardiovascular: Regular rate, Regular Rhythm, Normal S1, Normal S2, No murmurs Abdomen: Bowel Sounds Present, Soft, Non Tender, Non-Distended, No Hepato- splenomegaly Extremities: No clubbing, No cyanosis, No edema, Capillary Refill Less than 3 Seconds Skin: No rashes, No breakdown Musculoskeletal: No Tenderness to Palpation of Joints or Extremities Lymphatic: No Cervical, Supraclavicular, or Inguinal Adenopathy Neurological: Cranial nerves II-XII grossly intact, Neuro grossly intact, Motor Exam 5/5 strength throughout Psych/Mental Status: Normal Affect, Appropriate, Alert and oriented to time, place, person, mood and affect Microbiology Past 72 Hours 10/08/19 17:34 Interface Orders Respiratory Panel (PCR) - Final Influenza A (Subtype H1) 10/08/19 17:34 Mucosa - Nose Influenza Types A,B Direct FA (LEEANNE) - Final Laboratory Results 10/08/19 17:30: WBC 7.9, RBC 4.92, Hgb 14.8, Hct 43.4, MCV 88.2, MCH 30.1, MCHC 34.1, RDW Std Deviation 38.8, RDW Coeff of Faiza 12.0, Plt Count 291, MPV 10.9, Immature Gran % (Auto) 0.300, Neut % (Auto) 85.6 H, Lymph % (Auto) 6.6 L, [place] % (Auto) 6.6, Eos % (Auto) 0.3, Baso % (Auto) 0.6, Absolute Neuts (auto) 6.7, Absolute Lymphs (auto) 0.52 L, Nucleated RBC % 0, Differential Comment SCANNED 10/08/19 17:30: PT 13.4, INR 1.0, APTT 28.2 10/08/19 17:30: Sodium 138, Potassium 3.6, Chloride 108 H, Carbon Dioxide 24.0, Anion Gap 6, BUN 8, Creatinine 0.86, Estim Creat Clear Calc 83.33, Est GFR (MDRD) Af Amer 92, Est GFR (MDRD) Non-Af 76, BUN/Creatinine Ratio 9.3 L, Glucose 90, Calcium 9.0, Total Bilirubin 0.80, AST 22, ALT 40, Alkaline Phosphatase 81, Troponin I < 0.015, Total Protein 7.8, Albumin 4.0, Globulin 3.8, Albumin/Globulin Ratio 1.1 10/08/19 17:30: Lactic Acid 1.4 10/08/19 17:30: Urine Color Yellow, Urine Clarity Clear, Urine pH 7.0, Ur Specific [place] 1.010, Urine Protein Negative, Urine Glucose (UA) Normal, Urine Ketones Negative, Urine Occult Blood Negative, Urine Nitrite Negative, Urine Bilirubin Negative, Urine Urobilinogen Normal, Ur Leukocyte Esterase Negative, Urine RBC 0 SEEN, Urine WBC 0 SEEN, Ur Squamous Epith Cells 0-5 SEEN, Urine Bacteria 0 SEEN, Urine Mucus 0 SEEN 10/08/19 17:30: TSH 0.72 10/09/19 05:14: WBC 3.9 L, RBC 3.97 L, Hgb 11.6 L, Hct 35.4 L, MCV 89.2, MCH 29.2, MCHC 32.8, RDW Std Deviation 39.5, RDW Coeff of [place] 12.1, Plt Count 204, MPV 11.7, Immature Gran % (Auto) 0.300, Neut % (Auto) 72.1 H, Lymph % (Auto) 13.4 L, [place] % (Auto) 12.1 H, Eos % (Auto) 1.6, Baso % (Auto) 0.5, Absolute Neuts (auto) 2.8, Absolute Lymphs (auto) 0.52 L, Nucleated RBC % 0, Differential Comment , Diff Path Review January10/09/19 05:14: Sodium 141, Potassium 3.7, Chloride 112 H, Carbon Dioxide 24.0, Anion Gap 5, BUN 8, Creatinine 0.73, Estim Creat Clear Calc 98.17, Est GFR (MDRD) Af Amer 110, Est GFR (MDRD) Non-Af 91, BUN/Creatinine Ratio 10.9, Glucose 86, Calcium 8.2 L, Magnesium 2.0 Diagnostic Data Chest X-Ray 10/08/19 17:17 IMPRESSION: Normal x-ray examination of the chest. Electronically Signed: Arron Dover MD at 18:09 EST , Service support , Current Medications Acetaminophen (Tylenol) 650 mg PO Q6H PRN PRN PRN Reason: Pain Score 1-3/Temp > 100.7 F Last Admin: 10/09/19 05:59 Dose: 650 mg Documented by: Albuterol Sulfate (Ventolin Aerosols) 2.5 mg INHALATION Q2H PRN PRN PRN Reason: Shortness of Breath/Wheezing Benzonatate (Tessalon Perle) 100 mg PO Q8H PRN PRN PRN Reason: COUGH Dextrose (D50w Syringe) 0 gm IV X1 PRN; Protocol PRN Reason: Hypoglycemia Enoxaparin Sodium (Lovenox) 40 mg SC DAILY KEILY Glucagon () 1 mg IM .X1 PRN PRN Reason: Hypoglycemia Potassium Chloride 40 meq/ (Lactated Ringer's) 1,020 mls @ 75 mls/hr IV .[id number] KEILY Last Admin: 10/09/19 01:22 Dose: 75 mls/hr Documented by: Melatonin (Melatonin) 3 mg PO QHS PRN PRN PRN Reason: INSOMNIA Metoprolol Succinate (Toprol Xl (Beta Sandra)) 100 mg PO QHS KEILY Ondansetron HCl (Zofran) 4 mg IV Q8H PRN PRN PRN Reason: NAUSEA/VOMITING Sodium Chloride () 10 - 40 ml IV UD PRN PRN Reason: SALINE FLUSH STROKE Vital Signs/Narrative: Vital Signs Temp Pulse 10/09/19 08:00 96 10/09/19 07:12 100.2 F H Medical Necessity - Tobacco Use Smoking Status: Never smoker Assessment/Plan All Active Problems (Last Reviewed 10/09/19 @ 02:41 by Cisco Hutchins MD) Febrile illness, acute (Acute) Nausea and vomiting (Acute) Tachycardia (Acute) Acute febrile illness (Acute) 1. Acute influenza infection * on admission, SIRS criteria was 3/4 (tachypnea, tachycardia and fever). * fever is 100.2F today; tachycardia and tachypnea have resolved * wbc down to 3.9, from 7.9 on admission. * rapid influenza screen was negative; however, respiratory panel was positive for influenza A * will start on PO tamiflu 75mg bid x 5 days * breathing treatments with duonebs prn * titrate oxygen to maintain sats>90% * tylenol prn for fever * 2. SIRS criteria: due to influenza infection. As under 1. 3. History of SVT s/p placement of loop recorder * On metoprolol 100 mg nightly. * Loop recorder was interrogated on 08/30/2018 showed one episode of sinus bradycardia. * DVT prophylaxis: Lovenox Code Visit OBSV E&M: 99987 Subsequent observation care L2
[2019-10-09] MEDS: Enoxaparin 40 MG/0.4 ML Syringe SC (10:20)
[2019-10-09] MEDS: Ondansetron 4 MG/2 ML Vial IV (10:20)
[2019-10-09] MEDS: 0.9% Saline Lock 10 ML Syringe IV (10:21)
[2019-10-09] MEDS: Oseltamivir Phosphate 75 MG Capsule PO ×2 (11:54→21:06)
[2019-10-09 12:33] LABS: Pathologist Review Reviewed
[2019-10-09] MEDS: Benzonatate 100 MG Capsule PO (21:06)
[2019-10-09] MEDS: Ibuprofen 600 MG Tablet PO (22:15)
[2019-10-10] VITALS (13 sets, daily range): BP systolic 121–138; BP diastolic 65–78; PULSE 66–94; RESP 18–20; TEMP 36.7–37.4; O2SAT 93–98
[2019-10-10] MEDS: Benzonatate 100 MG Capsule PO (04:58)
[2019-10-10] MEDS: 0.9% Saline Lock 10 ML Syringe IV ×2 (04:59→22:14)
[2019-10-10] MEDS: Ondansetron 4 MG/2 ML Vial IV (10:06)
[2019-10-10] MEDS: Oseltamivir Phosphate 75 MG Capsule PO ×2 (10:07→22:13)
[2019-10-10] MEDS: Ibuprofen 600 MG Tablet PO ×2 (10:08→22:13)
[2019-10-10] MEDS: Enoxaparin 40 MG/0.4 ML Syringe SC (10:08)
--- NOTE | 2019-10-10 11:16 | PCM.PN.HOSP ---
Patient Problems: Active and Suspected Problems (Last Reviewed 10/09/19 @ 02:41 by Cisco Hutchins MD) Febrile illness, acute (Acute) Nausea and vomiting (Acute) Tachycardia (Acute) Acute febrile illness (Acute) Subjective: Patient seen and examined. She still complained of feeling lousy complaint of generalized malaise. She denied any fever or chills and denied any shortness of breath or productive cough. She also denied any chest pain, nausea vomiting or diarrhea. She has a poor appetite. Review of systems otherwise negative. She still has a low-grade fever with temperature of 99.3 Fahrenheit today. Vitals/I&O's: Vital Signs Temp Pulse Resp BP Pulse Ox 99.3 F H 80 18 128/66 H 93 10/10/19 10:18 10/10/19 10:18 10/10/19 10:18 10/10/19 10:18 10/10/19 10:18 Oxygen Delivery Method Room Air Weight: 215 lb 7 oz Body Mass Index (BMI) 32.3 Intake and Output for Last 24 Hours 10/08/19 10/09/19 10/10/19 23:59 23:59 23:59 Intake Total 1999 2620 / 2620 1017.5 / 1017.5 Output Total 2450 / 2450 600 / 600 Balance 1999 170 / 170 417.5 / 417.5 General: Alert, Oriented x3, Cooperative, Lethargic, - - looks weak HEENT: Atraumatic, PERRLA, EOMI, Normocephalic Oral: Dry Mucosa Neck: Supple, No JVD, Negative Carotid Bruits Lungs: - - mildly decreased breath sounds bibasally, no wheezes or crackles. Cardiovascular: Regular rate, Regular Rhythm, Normal S1, Normal S2, No murmurs Abdomen: Bowel Sounds Present, Soft, Non Tender, Non-Distended, No Hepato-splenomegaly Extremities: No clubbing, No cyanosis, No edema, Capillary Refill Less than 3 Seconds Skin: No rashes, No breakdown Musculoskeletal: No Tenderness to Palpation of Joints or Extremities Lymphatic: No Cervical, Supraclavicular, or Inguinal Adenopathy Neurological: Cranial nerves II-XII grossly intact, Neuro grossly intact, Motor Exam 5/5 strength throughout Psych/Mental Status: Normal Affect, Appropriate, Alert and oriented to time, place, person, mood and affect Microbiology Past 72 Hours 10/08/19 17:34 Interface Orders Respiratory Panel (PCR) - Final Influenza A (Subtype H1) 10/08/19 17:34 Mucosa - Nose Influenza Types A,B Direct FA (LEEANNE) - Final Laboratory Results 10/09/19 05:14: Diff Path Review Reviewed Current Medications Acetaminophen (Tylenol) 650 mg PO Q6H PRN PRN PRN Reason: Pain Score 1-3/Temp > 100.7 F Last Admin: 10/09/19 15:20 Dose: 650 mg Documented by: Albuterol Sulfate (Ventolin Aerosols) 2.5 mg INHALATION Q2H PRN PRN PRN Reason: Shortness of Breath/Wheezing Benzonatate (Tessalon Perle) 100 mg PO Q8H PRN PRN PRN Reason: COUGH Last Admin: 10/10/19 04:58 Dose: 100 mg Documented by: Dextrose (D50w Syringe) 0 gm IV X1 PRN; Protocol PRN Reason: Hypoglycemia Enoxaparin Sodium (Lovenox) 40 mg SC DAILY COUNTS INCLUDE 234 BEDS AT THE [facility] Last Admin: 10/10/19 10:08 Dose: 40 mg Documented by: Glucagon () 1 mg IM .X1 PRN PRN Reason: Hypoglycemia Potassium Chloride 40 meq/ (Lactated Ringer's) 1,020 mls @ 75 mls/hr IV .[id number] COUNTS INCLUDE 234 BEDS AT THE [facility] Last Admin: 10/10/19 04:59 Dose: 75 mls/hr Documented by: Ibuprofen (Motrin) 600 mg PO Q6H PRN PRN PRN Reason: Pain or Fever Last Admin: 10/10/19 10:08 Dose: 600 mg Documented by: Melatonin (Melatonin) 3 mg PO QHS PRN PRN PRN Reason: INSOMNIA Metoprolol Succinate (Toprol Xl (Beta Sandra)) 100 mg PO QHS COUNTS INCLUDE 234 BEDS AT THE [facility] Last Admin: 10/09/19 21:06 Dose: 100 mg Documented by: Ondansetron HCl (Zofran) 4 mg IV Q8H PRN PRN PRN Reason: NAUSEA/VOMITING Last Admin: 10/10/19 10:06 Dose: 4 mg Documented by: Oseltamivir Phosphate (Tamiflu) 75 mg PO BID COUNTS INCLUDE 234 BEDS AT THE [facility] Stop: 10/13/19 22:01 Last Admin: 10/10/19 10:07 Dose: 75 mg Documented by: Sodium Chloride () 10 - 40 ml IV UD PRN PRN Reason: SALINE FLUSH Last Admin: 10/10/19 04:59 Dose: 10 ml Documented by: STROKE Vital Signs/Narrative: Vital Signs Temp Pulse Resp BP Pulse Ox 10/10/19 10:18 99.3 F H 80 18 128/66 H 93 10/10/19 07:38 76 Medical Necessity - Tobacco Use Smoking Status: Never smoker Assessment/Plan All Active Problems (Last Reviewed 10/09/19 @ 02:41 by Cisco Hutchins MD) Febrile illness, acute (Acute) Nausea and vomiting (Acute) Tachycardia (Acute) Acute febrile illness (Acute) 1. Acute influenza infection still feels horrible, and has a low grade fever. on tamiflu 75mg bid; today is day 2. on breathing treatments with duonebs tylenol prn. titrate oxygen to maintain sats>90% 2. SIRS criteria: resolved. 3. History of SVT s/p placement of loop recorder On metoprolol 100 mg nightly. Loop recorder was interrogated on 08/30/2018 showed one episode of sinus bradycardia. DVT prophylaxis: Lovenox Code Visit OBSV E&M: 95562 Subsequent observation care L2
[2019-10-10] MEDS: Metoprolol(XL)Succ 100 MG Tablet PO (22:13)
[2019-10-11 03:59] VITALS: PULSE 66
[2019-10-11 04:01] VITALS: BP 119/62; PULSE 77; RESP 16; TEMP 36.7; O2SAT 94
[2019-10-11] MEDS: Ibuprofen 600 MG Tablet PO ×2 (04:12→10:12)
[2019-10-11 07:25] VITALS: BP 112/57; PULSE 69; RESP 16; TEMP 36.5; O2SAT 95
[2019-10-11 07:30] VITALS: PULSE 68
--- NOTE | 2019-10-11 09:24 | PCM.DC ---
- Discharge Diagnoses Current Active Problems: Current Active and Chronic Problems (Last Reviewed 10/09/19 @ 02:41 by Cisoc Hutchins MD) Febrile illness, acute (Acute) Nausea and vomiting (Acute) Tachycardia (Acute) Acute febrile illness (Acute) You will use the following diet at home:: Cardiac Your food should be the consistency of: Regular Your liquids should be the consistency of: Regular/Thin Discharge Activity: Return to Normal Activity Weight Bearing Status: Weight bearing as tolerated Call your doctor if you observe: Fever of 101 or Higher, Shortness of breath Instructions: Adult Self-Care for Colds and Flu, Protect Your Child from the Flu, Influenza Allergies/Adverse Reactions: Allergies codeine Allergy (Unknown, Verified 07/23/19:) tachycardia, syncope adhesive tape Allergy (Verified 07/23/19) blisters hydrocodone [From [place]] Allergy (Verified 07/23/19) Other Medications to take at Discharge Cyanocobalamin (Vitamin B-12) [B-12] 5,000 mcg PO QHS 05/30/15 Magnesium Oxide [Magnesium] 400 mg PO QHS 05/30/15 Ascorbic Acid [Vitamin C] 1,000 mg PO QHS 10/21/16 cholecalciferol (vitamin D3) 50 mcg (2,000 unit) capsule 2,000 unit PO QHS cap 10/04/17 lactobacillus combination no.8 3 billion cell capsule 3,000 mmu cells PO QHS 10/08/17 Calcium (Elemental) [Os-Spenser 500] 500 mg PO QHS 09/02/18 Cbd 10/08/19 Metoprolol(XL)Succ [Toprol Xl (Beta Sandra)] 100 mg PO QHS 10/09/19 Oseltamivir Phosphate [Tamiflu] 75 mg PO BID #5 cap 10/11/19 The following prescriptions were given: Oseltamivir Phosphate [Tamiflu] 75 mg PO BID #5 cap Transmission Status: Pending to [facility] Primary Care Physician: Mane Lindquist DO [Primary Care Provider] - Please follow up with your Primary Care Physician in: 1-2 weeks Test Results: Test results from this visit will be discussed in further detail at your follow-up appointment, if applicable. Proposed Discharge Date: 10/11/19
--- NOTE | 2019-10-11 09:25 | PCM.DC.SUM ---
Discharge Date and Diagnosis Date of Admission: 10/08/19 Date of Discharge: 10/11/19 - Primary Discharge Diagnosis Active and Suspected Problems (Last Reviewed 10/09/19 @ 02:41 by Cisco Hutchins MD) Febrile illness, acute (Acute) Nausea and vomiting (Acute) Tachycardia (Acute) Acute febrile illness (Acute) acute influenza infection - Secondary Discharge Diagnosis Chronic Problems (Last Reviewed 10/09/19 @ 02:41 by Cisco Hutchins MD) Plantar fasciitis of left foot (Chronic) Left foot pain (Chronic) Status post placement of implantable loop recorder (Chronic 03/28/18) Premature ventricular contraction (Chronic) Syncope (Chronic) Supraventricular tachycardia (Chronic) Hospital Course and Treatment Imaging Results: Diagnostic Data Chest X-Ray 10/08/19 17:17 IMPRESSION: Normal x-ray examination of the chest. Electronically Signed: Arron Dover MD at 18:09 EST , Service support , Operations: None Procedures: None Summary of Care Provided: The patient is a 44 year old F with a past medical history as outlined was admitted through the ED with a complaint of malaise and a productive cough as well as fever, nausea vomiting chills, [place], lightheadedness and presyncope. She also had mild shortness of breath and sore throat from her cough. In the ED, her temperature was 103.7 and she was also tachycardic. She also had tachypnea. UA done in the ED was unremarkable and chest x-ray showed no acute cardiopulmonary process. Patient did meet SIRS criteria but there was no obvious source of infection initially. Rapid influenza screen was negative. She was admitted initially and managed for acute febrile illness. Respiratory panel tested positive for influenza A. She was started on p.o. Tamiflu and breathing treatments as well as Tylenol. Diagnosis was therefore influenza A infection. Patient symptoms gradually improved and malaise and general weakness as well as shortness of breath and fever resolved. She was discharged home on 10/11/2019. She is to follow-up with her primary care doctor within 1 week. Seen and examined prior to discharge. She feels much better. She denied fever chills, nausea, vomiting diarrhea cough or shortness of breath. Review of symptoms otherwise negative. Labs and vitals reviewed. Home medication reviewed and reconciled. o/e: Vital Signs Height 5 ft 8.5 in Weight: 215 lb 7 oz Weight in Pounds 215.4 lbs Pulse Ox 95 Temperature 97.7 F Pulse Rate 68 Respiratory Rate 18 Blood Pressure 112/57 Blood Pressure Position Semi-Fowlers [] General: Alert, Oriented x3, Cooperative, HEENT: Atraumatic, PERRLA, EOMI, Normocephalic Oral: Dry Mucosa Neck: Supple, No JVD, Negative Carotid Bruits Lungs: - - mildly decreased breath sounds bibasally, no wheezes or crackles. Cardiovascular: Regular rate, Regular Rhythm, Normal S1, Normal S2, No murmurs Abdomen: Bowel Sounds Present, Soft, Non Tender, Non-Distended, No Hepato-splenomegaly Extremities: No clubbing, No cyanosis, No edema, Capillary Refill Less than 3 Seconds Skin: No rashes, No breakdown Musculoskeletal: No Tenderness to Palpation of Joints or Extremities Lymphatic: No Cervical, Supraclavicular, or Inguinal Adenopathy Neurological: Cranial nerves II-XII grossly intact, Neuro grossly intact, Motor Exam 5/5 strength throughout Psych/Mental Status: Normal Affect, Appropriate, Alert and oriented to time, place, person, mood and affect Plan is for discharge home today with a script for PO tamiflu 75mg x 5 doses, to complete a 5 day course. - Physical Exam Vitals/I&O's: Vital Signs Temp Pulse Resp BP Pulse Ox 97.7 F L 69 16 112/57 L 95 10/11/19 07:25 10/11/19 07:25 10/11/19 07:25 10/11/19 07:25 10/11/19 07:25 Oxygen Delivery Method Room Air Weight: 215 lb 7 oz Body Mass Index (BMI) 32.3 Intake and Output for Last 24 Hours 10/09/19 10/10/19 10/11/19 23:59 23:59 23:59 Intake Total 2620 / 2620 3612.50 / 4462.50 2287.5 / 2287.5 Output Total 2450 / 2450 3300 / 4000 1600 / 1600 Balance 170 / 170 312.50 / 462.50 687.5 / 687.5 Microbiology Past 72 Hours 10/08/19 17:34 Interface Orders Respiratory Panel (PCR) - Final Influenza A (Subtype H1) 10/08/19 17:34 Mucosa - Nose Influenza Types A,B Direct FA (LEEANNE) - Final Current Medications Acetaminophen (Tylenol) 650 mg PO Q6H PRN PRN PRN Reason: Pain Score 1-3/Temp > 100.7 F Last Admin: 10/09/19 15:20 Dose: 650 mg Documented by: Albuterol Sulfate (Ventolin Aerosols) 2.5 mg INHALATION Q2H PRN PRN PRN Reason: Shortness of Breath/Wheezing Benzonatate (Tessalon Perle) 100 mg PO Q8H PRN PRN PRN Reason: COUGH Last Admin: 10/10/19 04:58 Dose: 100 mg Documented by: Dextrose (D50w Syringe) 0 gm IV X1 PRN; Protocol PRN Reason: Hypoglycemia Enoxaparin Sodium (Lovenox) 40 mg SC DAILY [facility] Last Admin: 10/10/19 10:08 Dose: 40 mg Documented by: Glucagon () 1 mg IM .X1 PRN PRN Reason: Hypoglycemia Potassium Chloride 40 meq/ (Lactated Ringer's) 1,020 mls @ 75 mls/hr IV .[id number] [facility] Last Admin: 10/11/19 06:45 Dose: 75 mls/hr Documented by: Ibuprofen (Motrin) 600 mg PO Q6H PRN PRN PRN Reason: Pain or Fever Last Admin: 10/11/19 04:12 Dose: 600 mg Documented by: Melatonin (Melatonin) 3 mg PO QHS PRN PRN PRN Reason: INSOMNIA Metoprolol Succinate (Toprol Xl (Beta Sandra)) 100 mg PO QHS [facility] Last Admin: 10/10/19 22:13 Dose: 100 mg Documented by: Ondansetron HCl (Zofran) 4 mg IV Q8H PRN PRN PRN Reason: NAUSEA/VOMITING Last Admin: 10/10/19 10:06 Dose: 4 mg Documented by: Oseltamivir Phosphate (Tamiflu) 75 mg PO BID [facility] Stop: 10/13/19 22:01 Last Admin: 10/10/19 22:13 Dose: 75 mg Documented by: Sodium Chloride () 10 - 40 ml IV UD PRN PRN Reason: SALINE FLUSH Last Admin: 10/10/19 22:14 Dose: 10 ml Documented by: Discharge Diet: Low fat/ Low Cholesterol Discharge Activity: Return to Normal Activity Weight Bearing Status: Weight bearing as tolerated Call your doctor if you observe: Fever of 101 or Higher, Shortness of breath Home Medications: Medications to take at Discharge Cyanocobalamin (Vitamin B-12) [B-12] 5,000 mcg PO QHS 05/30/15 Magnesium Oxide [Magnesium] 400 mg PO QHS 05/30/15 Ascorbic Acid [Vitamin C] 1,000 mg PO QHS 10/21/16 cholecalciferol (vitamin D3) 50 mcg (2,000 unit) capsule 2,000 unit PO QHS cap 10/04/17 lactobacillus combination no.8 3 billion cell capsule 3,000 mmu cells PO QHS 10/08/17 Calcium (Elemental) [Os-Spenser 500] 500 mg PO QHS 09/02/18 Cbd 10/08/19 Metoprolol(XL)Succ [Toprol Xl (Beta Sandra)] 100 mg PO QHS 10/09/19 Oseltamivir Phosphate [Tamiflu] 75 mg PO BID #5 cap 10/11/19 Following Prescrptions Were Given to Patient: Oseltamivir Phosphate [Tamiflu] 75 mg PO BID #5 cap Transmission Status: Received by [facility] Primary Care Physician: Mane Lindquist DO [Primary Care Provider] - Please follow up with your Primary Care Physician in: 1-2 weeks Patient Instructions: Adult Self-Care for Colds and Flu, Protect Your Child from the Flu, Influenza Disposition: Home Minutes spent on discharge:: 40 Patient Condition:: Stable Medical Necessity - Tobacco Use Smoking Status: Never smoker Meaningful Use Info Meaningful Use Diagnoses (Choose all that apply): None applicable Code Visit OBSV E&M: 16877 Observation care discharge
[2019-10-11 09:58] VITALS: RESP 18
[2019-10-11] MEDS: Enoxaparin 40 MG/0.4 ML Syringe SC (10:03)
[2019-10-11] MEDS: Oseltamivir Phosphate 75 MG Capsule PO (10:19)
== END 2019-10-11 11:00 | disposition home or self-care (01) ==
LOC: ED 23:05 → MS3 10-09 00:26
PROVIDERS: Admitting Provider Hospitalist; Emergency Provider Emergency Medicine; PCP Family Medicine; Visit Provider Student in an Organized Health Care Education/Training Program
DX: J10.1 Influenza due to other identified influenza virus with other respiratory manifestations (principal); Z86.73 Personal history of transient ischemic attack (TIA), and cerebral infarction without residual deficits; K58.9 Irritable bowel syndrome, unspecified; M79.7 Fibromyalgia; I47.1 Supraventricular tachycardia; Z79.899 Other long term (current) drug therapy; R65.10 Systemic inflammatory response syndrome (SIRS) of non-infectious origin without acute organ dysfunction
CPT/HCPCS: 36415; 71045; 80048; 80053; 81001; 83605; 83735; 84443; 84484; 85025; 85610; 85730; 87040; 87633; 87804; 93005; 96361; 96372; 96374; 96375; 96376; 99218; 99285; J7030; J7120; A4216; G0378; J2405

== ENCOUNTER → 2020-01-29 10:32 | Outpatient (CLI) | payer BC, SELFPAY ==
[2020-01-26 12:42] VITALS: BMI 31.1
== END ==
PROVIDERS: PCP Family Medicine; Visit Provider Family Medicine
DX: Z20.828 Contact with and (suspected) exposure to other viral communicable diseases (principal)

== ENCOUNTER → 2020-01-30 14:29 | Outpatient (CLI) | payer BC, SELFPAY ==
[2020-01-26 12:42] VITALS: BMI 31.1
[2020-02-01 05:20] LABS: SAR-COV-2 IGG ANTIBODY Negative (Negative)
== END ==
PROVIDERS: PCP Family Medicine; Visit Provider Family Medicine
DX: Z20.828 Contact with and (suspected) exposure to other viral communicable diseases (principal)
CPT/HCPCS: 36415; 86769; G2023

== ENCOUNTER → 2021-04-04 15:25 | Outpatient (CLI) | payer BC, SELFPAY ==
[2020-06-11 12:48] VITALS: BMI 31.1
[2021-04-02 14:21] VITALS: BMI 34.2
--- NOTE | 2021-04-04 15:30 | MRI_ITS ---
STUDY: MRI RIGHT ANKLE WITHOUT CONTRAST REASON FOR EXAM: Right lateral ankle pain and medial calcaneal pain, right ankle injury in October. TECHNIQUE: Standardized fat and water weighted pulse sequences were obtained in all 3 orthogonal planes. COMPARISON: None. FINDINGS: Normal subcutis adipose space. There is a very small volume of fluid in the distal posterior tibialis tendon sheath (T2 axial images 18, 19). The posterior tibialis tendon is morphologically normal. There is a very small volume of fluid in the proximal flexor digitorum longus tendon sheath (T2 axial images 9, 10). The flexor digitorum longus tendon is morphologically normal. There is a very small volume of fluid in the proximal flexor hallucis longus tendon, likely from communication with the tibiotalar articulation. Normal peroneus longus and brevis tendons. Normal tibialis anterior tendon. Normal extensor hallucis longus tendon. There is fluid in the extensor digitorum longus tendon sheath (T2 axial images 10-16). The extensor digitorum longus tendons are morphologically normal. Normal Achilles tendon and teno-osseous insertion. There is mild interstitial edema in the central cord of the plantar fascia (inversion recovery sagittal image 11). There is a small plantar calcaneal enthesophyte. Normal intrinsic muscles of the rearfoot. Normal distal tibiofibular syndesmotic ligamentous complex. There is thickening of the anterior talofibular ligament (T2 axial images 16, 17) consistent with scarring. Normal calcaneofibular and posterior talofibular ligaments. There is a small cyst in the sinus tarsi (inversion recovery sagittal image 8) measuring 0.8 cm in AP dimension. Normal deltoid ligamentous complexes. Normal plantar calcaneonavicular (spring) ligament. There is a small tibiotalar joint effusion (inversion recovery sagittal images 10, 11). Normal talar dome. There is a small posterior subtalar joint effusion (inversion recovery sagittal image 11). Normal talonavicular articulation. Normal calcaneocuboid articulation. Normal navicular-cuneiform articulations. MRI/Lower Ext Joint Only (Routine) IMPRESSION: Scarring of the anterior talofibular ligament. Mild plantar fasciitis. Extensor digitorum longus tenosynovitis. Very mild posterior tibialis and flexor digitorum longus tenosynovitis. Small tibiotalar and posterior subtalar joint effusions. No demonstrated osteochondral talar dome lesion. Electronically Signed: Juan Dias MD at 10:12 EDT Tel , Service support ,
== END ==
PROVIDERS: PCP Family Medicine; Referring Provider Podiatrist; Visit Provider Podiatrist
DX: S93.491D Sprain of other ligament of right ankle, subsequent encounter (principal); M93.871 Other specified osteochondropathies, right ankle and foot; M76.811 Anterior tibial syndrome, right leg; M25.571 Pain in right ankle and joints of right foot; X58.XXXD Exposure to other specified factors, subsequent encounter
CPT/HCPCS: 73721

== ENCOUNTER 2021-08-08 17:31 | Emergency (ER) | payer BC, SELFPAY ==
[2021-08-08 17:32] VITALS: BP 156/86; PULSE 71; RESP 19; TEMP 36.4; O2SAT 100; BMI 31.7
--- NOTE | 2021-08-08 17:35 | RAD_ITS ---
STUDY: X-RAY - LEFT KNEE REASON FOR EXAM: Female, 46 years old. FALL, medial knee pain TECHNIQUE: 3 view(s) of the knee. COMPARISON: None. FINDINGS: Normal visualized distal femur. Normal visualized proximal tibia and fibula. Normal proximal tibiofibular articulation. Normal medial femorotibial compartment. Normal lateral femorotibial compartment. Normal patellofemoral articulation. There is no demonstrated joint effusion. The soft tissue structures are unremarkable. RAD/Knee 3 Views IMPRESSION: No fracture or malalignment. Electronically Signed: Fabian Mcclain MD ([place]) at 18:07 EST , Service support ,
[2021-08-08 19:25] VITALS: BP 118/74; PULSE 62; RESP 15; O2SAT 99
--- NOTE | 2021-08-08 20:05 | EDS_ITS ---
HPI History of Present Illness Chief Complaint: Lower Extremity Injury Narrative Narrative: 46-year-old female presenting with left knee pain. She states that she slipped and her right leg came forward and her left leg came back and her description of this is her left knee and lower limb went sideways to the left. She admits to a history of [place] and he injured his ligaments very easily. He states he is unable to walk due to ligament laxity. Her knee feels unstable. She is not fallen again. She denies head injury or LOC. She denies numbness or tingling. [facility] Medical History Anemia Diverticulitis Fibromyalgia IBS (irritable bowel syndrome) Premature ventricular contraction Recurrent syncope Seizure Sinus tachycardia Status post ablation for SVT Supraventricular tachycardia Syncope TIA (transient ischemic attack) Home Medications magnesium oxide 400 mg PO QHS 05/30/15 [History Last Taken 10/07/19 22:00] ascorbic acid (vitamin C) 1,000 mg PO QHS 10/21/16 [History Last Taken 10/07/19 22:00 1,000 unit] cholecalciferol (vitamin D3) 50 mcg (2,000 unit) capsule 2,000 unit PO QHS cap 10/04/17 [History Last Taken 10/07/19 22:00] lactobacillus combination no.8 3 billion cell capsule 3,000 mmu cells PO QHS 10/08/17 [History Last Taken 10/07/19 22:00] calcium carbonate 500 mg PO QHS 09/02/18 [History Last Taken 10/07/19 22:00 500 mg] cyanocobalamin (vitamin B-12) 5,000 mcg disintegrating tablet 5,000 mcg PO DAILY tab 01/26/20 [History Last Taken Unknown] Cbd Oil SUBLINGUAL 04/02/21 [History Last Taken Unknown] citalopram 20 mg tablet 20 mg PO DAILY tab 04/02/21 [History Last Taken Unknown] metoprolol succinate 100 mg tablet,extended release 24 hr 100 mg PO QHS #90 tab 05/08/21 [Rx Last Taken Unknown] naproxen [Naprosyn] 500 mg PO BID PRN #30 tab 08/08/21 [Rx Last Taken Unknown] Allergy/AdvReac Type Severity Reaction Status Date / Time codeine Allergy Unknown tachycardia, Verified 08/08/21 17:34 syncope adhesive tape Allergy blisters Verified 08/08/21 17:34 hydrocodone [From [place]] Allergy Other Verified 08/08/21 17:34 Family History Mother Diabetes CAD (coronary artery disease) CVA (cerebral vascular accident) Myocardial infarction Father Hypertension CVA (cerebral vascular accident) CHF (congestive heart failure) Surgical History History of cholecystectomy History of shoulder surgery S/P foot surgery, left Status post ablation of ventricular arrhythmia (~04/14/13) Status post placement of implantable loop recorder (03/28/18) Social History Smoking Status: Never smoker alcohol intake: never substance use type: does not use caffeine: Yes Type: carbonated beverages and coffee Number of servings: 1 ROS ROS ED Constitutional Constitutional ED: Denies chills or fever(s) Eyes Eyes: Denies blurry vision or change in vision ENT ENT ED: Denies ear pain or rhinorrhea Cardiovascular Cardiovascular: Denies chest pain or palpitations Respiratory/Chest Respiratory/Chest: Denies cough or dyspnea Gastrointestinal Gastrointestinal: Denies abdominal pain, nausea or vomiting Genitourinary Genitourinary ED: Denies dysuria or hematuria Musculoskeletal Musculoskeletal: Reports other Details: Left knee pain and swelling Integumentary Denies abscess or rash Neurologic Neurologic: Denies headache(s) Psychiatric Psychiatric: Denies anxiety or depression EXAM Physical Exam Const Vital Signs: 08/08/21 17:32 08/08/21 19:25 Temperature 97.6 F L Temperature Source Oral Pulse Rate 71 62 Respiratory Rate 19 H 15 Blood Pressure 156/86 H 118/74 Blood Pressure Mean 109 Pulse Ox 100 99 Oxygen Delivery Method Room Air Positive well nourished General Appearance ED: NAD HEENT Reports moist mucous membranes normocephalic and atraumatic Eyes PERRL Resp normal respiratory effort Effort and Inspection: able to speak in complete sentences Cardio regular rate and regular rhythm Extremity Extremity Narrative: Right knee has no significant edema. Patella nontender. Extensor mechanism is intact. There is pain with valgus strain and tenderness to palpation on the medial joint line. Psych mental status grossly normal Skin Lesions: no lesions Rashes: no rashes MDM MDM MDM Narrative Medical decision making narrative: Knee x-rays obtained to the left knee and on my interpretation there is no acute fracture or subluxation. Radiologist agree. Patient likely has a meniscal injury. Is unclear if he has a ligamentous injury although I have a high suspicion based on her history of [place]. She is offered a knee immobilizer but declines this because she feels they are uncomfortable. She was offered Armin wrap but she is amenable to this. She was offered crutches to ambulate but she states she has a previous foot injury on the right foot and cannot bear weight on this foot all the way. At this point she wanted to have a walker which was ordered and then she declined this and stated she will use her son's wheelchair at home. Patient will follow up with Dr. Pelaez who she had previously seen before. Patient does not want anything stronger than anti-inflammatories for pain. Impression: 1. Left knee strain Radiography Diagnostic Testing: Clinical Impression(s) from Imaging Studies Knee X-Ray 08/08/21 17:35 IMPRESSION: No fracture or malalignment. Electronically Signed: Fabian Mcclain MD ([place]) at 18:07 EST , Service support , Discharge Plan Triage Chief Complaint: Lower Extremity Injury ED Provider: Alli Corral Dx/Rx/DC Orders Instructions: ED Meniscal Injury Knee Poss, ED Knee Sprain, ED Knee Injury Cruciate Ligament Prescriptions: New naproxen [Naprosyn] 500 mg tablet 500 mg PO BID PRN (Reason: pain) Qty: 30 RF: 0 No Action lactobacillus combination no.8 [Adult Probiotic] 3 billion cell capsule 3,000 mmu cells PO QHS RF: 0 cholecalciferol (vitamin D3) 2,000 unit capsule 2,000 unit PO QHS RF: 0 citalopram 20 mg tablet 20 mg PO DAILY RF: 0 magnesium oxide 400 MG tablet 400 mg PO QHS RF: 0 cyanocobalamin (vitamin B-12) 5,000 mcg tablet,disintegrating 5,000 mcg PO DAILY RF: 0 ascorbic acid (vitamin C) 1,000 MG tablet 1,000 mg PO QHS RF: 0 calcium carbonate 500 MG tablet 500 mg PO QHS RF: 0 Cbd Oil sublingual RF: 0 metoprolol succinate 100 mg tablet extended release 24 hr 100 mg PO QHS Qty: 90 RF: 3 Primary Care Provider: Mane Lindquist Referrals: Mane Lindquist DO [Primary Care Provider] - Disposition Disposition: Home, Self Care Discharge Date/Time: 08/08/21 19:28
== END 2021-08-08 19:28 | disposition home or self-care (01) ==
PROVIDERS: Emergency Provider Student in an Organized Health Care Education/Training Program; PCP Family Medicine
DX: S86.912A Strain of unspecified muscle(s) and tendon(s) at lower leg level, left leg, initial encounter (principal); W01.0XXA Fall on same level from slipping, tripping and stumbling without subsequent striking against object, initial encounter; Y93.9 Activity, unspecified; Y92.9 Unspecified place or not applicable; Y99.9 Unspecified external cause status; Q79.60 Ehlers-Danlos syndrome, unspecified; R56.9 Unspecified convulsions; K58.9 Irritable bowel syndrome, unspecified; Z86.73 Personal history of transient ischemic attack (TIA), and cerebral infarction without residual deficits
CPT/HCPCS: 73562; 99282

== ENCOUNTER 2022-01-04 13:00 | Emergency (ER) | payer OTHER, SELFPAY ==
[2022-01-04 13:02] VITALS: BP 136/84; PULSE 69; RESP 18; TEMP 36.2; O2SAT 99; BMI 33.3
[2022-01-04 13:10] VITALS: BP 141/89; PULSE 64; RESP 18; O2SAT 94
--- NOTE | 2022-01-04 13:29 | RAD_ITS ---
STUDY: X-RAY CHEST REASON FOR EXAM: Female, 46 years old. Chest pain TECHNIQUE: Frontal view of the chest COMPARISON: 10/08/19 FINDINGS: The lungs are clear. There are no pleural effusions. There is no pneumothorax. The heart is normal in size. The visualized osseous structures are within normal limits. RAD/Chest 1 View (Portable) IMPRESSION: No acute thoracic pathology. Electronically Signed: Remington Bustillo MD at 14:27 EDT ,
--- NOTE | 2022-01-04 13:29 | EKG12_ITS ---
Test Reason : CHEST PRESSURE Blood Pressure : / mmHG Vent. Rate : 062 BPM Atrial Rate : 062 BPM P-R Int : 162 ms QRS Dur : 098 ms QT Int : 408 ms P-R-T Axes : 049 043 057 degrees QTc Int : 414 ms Normal sinus rhythm Normal ECG Confirmed by AVIS ANDERSON, RADHA ([id number]), video editor KIM CORNEJO ([id number]) on 01/06/2022 11:10:58 AM Referred By: BB Confirmed By:RADHA ALBARRAN MD
[2022-01-04 13:38] LABS: Absolute Lymphocyte Count 1.98 X10^3/uL (0.83-4.51); Absolute Neutrophil Count 6.7 X10^3/uL (2.0-7.7); Basophil# 0.06 X10^3/uL; Basophil% 0.6 % (0-1); Eosinophil# 0.11 X10^3/uL; Eosinophils% 1.2 % (0-5); Hematocrit 44.9 % (37-47); Hemoglobin 15.2 g/dL (12.0-15.0); Lymphocyte # 1.98 X10^3/ul (0.83-4.51); Lymphocyte % 20.9 % (19-41); Mean Corp Hgb Conc 33.9 g/dL (32-36); Mean Corpuscular Hgb 30.5 pg (27.0-32.0); Mean Platelet Vol. 11.3 fl (6.2-12.0); Monocyte# 0.56 X10^3/uL; Monocyte% 5.9 % (0-10); NRBC Flagged by Analyzer 0 % (0-5); Neutrophil # 6.72 X10^3/uL (2.7-7.7); Neutrophil % 71.1 % (47-70); Platelet Count 344 K/mm3 (150-450); RBC Distribution Width CV 12.4 % (11.6-14.6); RBC Distribution Width SD 41.1 fl (35.1-43.9); Red Blood Count 4.99 M/mm3 (4.2-5.4); White Blood Count 9.5 K/mm3 (4.4-11.0)
[2022-01-04 13:49] LABS: Anion Gap 5 (5-15); BUN 13 mg/dL (7-18); BUN/Creat Ratio 16.9 RATIO (10-20); Calcium,Total 9.4 mg/dL (8.5-10.1); Chloride 106 mmol/L (98-107); Creatinine, Serum 0.77 mg/dL (0.55-1.02); EST Glomerular Filtration Rate 85 mL/min (>60); Est Glom Filt Rate - Afr Amer 103 mL/min (>60); Estimated Creatinine Clearance 91.11 ml/min; Glucose 84 mg/dL (74-106); Potassium 3.7 mmol/L (3.5-5.1); Sodium Level 138 mmol/L (136-145)
[2022-01-04 13:55] LABS: Troponin-I HS (w/2H Reflex) 3 pg/mL (3.0-54.0)
--- NOTE | 2022-01-04 14:02 | EDS_ITS ---
HPI History of Present Illness Chief Complaint: Palpitations Informant: patient Onset/Context/Timing Onset: Yesterday (night) Activity at onset: gradual Timing: Continuous Quality: Positive for Heaviness Location: Substernal (w/o radiation) Current Severity: Mild Maximum Severity: Mild Worsened By: Nothing (except worse when palpitations occur) Relieved By: Nothing Associated Symptoms: Positive for Dyspnea, Lightheadedness and Palpitations; Negative for Nausea, Vomiting and Diaphoresis Narrative Narrative: Patient with episodic palpitations, shortness of breath, near syncope, lightheadedness since last night. She has had about 6 episodes. They last anywhere from 10 to 40 seconds each, approximately. They feel like s kipping. She had a history of SVT for which she had an ablation, this feels different. She has had PVCs in the past, but they do not usually cause chest discomfort, shortness of breath and near syncope like this. She has a loop recorder in, and she states in conveniently, the battery about a month ago. She states the chest heaviness has been persistent since this started last night, and all seems worse when the palpitations occur. She says yesterday her legs were very edematous, but she had driven for 5 hours home from [place] and they are better today. [facility] Medical History Anemia Diverticulitis Fibromyalgia IBS (irritable bowel syndrome) Premature ventricular contraction Recurrent syncope Seizure Sinus tachycardia Status post ablation for SVT Supraventricular tachycardia Syncope TIA (transient ischemic attack) Home Medications magnesium oxide 400 mg PO QHS 05/30/15 [History Last Taken 10/07/19 22:00] ascorbic acid (vitamin C) 1,000 mg PO QHS 10/21/16 [History Last Taken 10/07/19 22:00 1,000 unit] cholecalciferol (vitamin D3) 50 mcg (2,000 unit) capsule 2,000 unit PO QHS cap 10/04/17 [History Last Taken 10/07/19 22:00] lactobacillus combination no.8 3 billion cell capsule 3,000 mmu cells PO QHS 10/08/17 [History Last Taken 10/07/19 22:00] calcium carbonate 500 mg PO QHS 09/02/18 [History Last Taken 10/07/19 22:00 500 mg] cyanocobalamin (vitamin B-12) 5,000 mcg disintegrating tablet 5,000 mcg PO DAILY tab 01/26/20 [History Last Taken Unknown] citalopram 20 mg tablet 20 mg PO DAILY tab 04/02/21 [History Last Taken Unknown] bupropion HCl 150 mg PO DAILY 01/04/22 [History Last Taken Unknown] metoprolol succinate 50 mg PO DAILY #30 tab 01/04/22 [Rx Last Taken Unknown] Allergy/AdvReac Type Severity Reaction Status Date / Time codeine Allergy Unknown tachycardia, Verified 01/04/22 13:03 syncope adhesive tape Allergy blisters Verified 01/04/22 13:03 hydrocodone [From [place]] Allergy Other Verified 01/04/22 13:03 Family History Mother Diabetes CAD (coronary artery disease) CVA (cerebral vascular accident) Myocardial infarction Father Hypertension CVA (cerebral vascular accident) CHF (congestive heart failure) Surgical History History of cholecystectomy History of shoulder surgery S/P foot surgery, left Status post ablation of ventricular arrhythmia (~04/14/13) Status post placement of implantable loop recorder (03/28/18) Social History Smoking Status: Never smoker alcohol intake: never substance use type: does not use caffeine: Yes Type: carbonated beverages and coffee Number of servings: 1 ROS ROS ED Constitutional Constitutional ED: Reports malaise; Denies chills or fever(s) Eyes Eyes: Denies change in vision or diplopia ENT ENT ED: Denies rhinorrhea or sore throat Cardiovascular Cardiovascular: Reports as per HPI, chest pain, palpitations and pedal edema Respiratory/Chest Respiratory/Chest: Reports dyspnea; Denies cough Gastrointestinal Gastrointestinal: Denies abdominal pain, diarrhea, nausea or vomiting Genitourinary Genitourinary ED: Denies dysuria or hematuria Musculoskeletal Musculoskeletal: Denies back pain or neck pain Integumentary Denies abscess or rash Neurologic Neurologic: Denies headache(s), paresthesias or weakness Psychiatric Psychiatric: Denies anxiety or suicidal thoughts EXAM Physical Exam Const Vital Signs: 01/04/22 13:02 01/04/22 13:10 01/04/22 13:33 Temperature 97.2 F L Temperature Source Temporal Pulse Rate 69 64 Respiratory Rate 18 18 Respiratory Effort Normal Respiratory Pattern Normal Blood Pressure 136/84 H 141/89 H Blood Pressure Mean 101 106 Pulse Ox 99 94 Oxygen Delivery Method Room Air Room Air Room Air 01/04/22 14:09 Temperature Temperature Source Pulse Rate 63 Respiratory Rate 15 Respiratory Effort Respiratory Pattern Blood Pressure 121/48 H Blood Pressure Mean 72 Pulse Ox 98 Oxygen Delivery Method Room Air Positive well nourished and well developed General Appearance ED: well developed and NAD HEENT Reports moist mucous membranes normocephalic and atraumatic Eyes PERRL and EOMs intact bilaterally Neck full ROM and supple Resp normal respiratory effort and clear to auscultation bilaterally Cardio regular rate, regular rhythm, no murmurs, no rub, no gallops and no JVD Rate: Negative for bradycardia or tachycardic GI non-tender and non-distended Auscultation: normoactive bowel sounds Palpation: soft Back/Spine no CVA tenderness General Back: other FROM Extremity normal to inspection and no calf tenderness General Extremety ED: Negative for edema, pulses abnormal or tenderness General Extremity: Negative for edema or pulses abnormal Neuro oriented x3, CN's II-XII intact bilaterally and no sensory deficits noted Sensorium / Orientation: awake and alert Motor Exam: strength 5/5 throughout Skin no rashes or lesions noted and no wounds Heart Score History: Moderately Suspicious ECG: Normal Age: >45 - <65 years Risk Factors: No Risk Factors Troponin: </= Normal Limit Score: 2 MDM MDM MDM Narrative Medical decision making narrative: Patient's work-up is negative including heart enzymes and electrolytes/renal function, but she did have several episodes of brief and milder symptoms here in the emerge would catch these on the monitor. My assessment of the rhythm strips, which show regular somewhat slower around a rate of 50, wide QRS complexes with retrograde P waves, is that it is a paroxysmal accelerated idioventricular escape rhythm, she is symptomatic with these may spontaneously abated. I sent them to Dr. Sunshine he agrees with this, and given her medications he advises halving her metoprolol succinate to 50 mg once daily, having respiratory placed a Holter monitor on her, and having her follow-up closely after the weekend with her material combiner in the office. Patient is amenable to this. I do not think she needs to stay in the hospital for this and cardiology agrees. Lab Data Attestation: I reviewed the patient's lab results. Labs: Laboratory Results - last 24 hr 01/04/22 01/04/22 01/04/22 13:25 13:25 13:25 WBC 9.5 RBC 4.99 Hgb 15.2 H Hct 44.9 MCV 90.0 MCH 30.5 MCHC 33.9 RDW Std Deviation 41.1 RDW Coeff of Faiza 12.4 Plt Count 344 MPV 11.3 Immature Gran % (Auto) 0.300 Neut % (Auto) 71.1 H Lymph % (Auto) 20.9 Power % (Auto) 5.9 Eos % (Auto) 1.2 Baso % (Auto) 0.6 Absolute Neuts (auto) 6.7 Absolute Lymphs (auto) 1.98 Nucleated RBC % 0 Sodium 138 Potassium 3.7 Chloride 106 Carbon Dioxide 27.0 Anion Gap 5 BUN 13 Creatinine 0.77 Estim Creat Clear Calc 91.11 Est GFR (MDRD) Af Amer 103 Est GFR (MDRD) Non-Af 85 BUN/Creatinine Ratio 16.9 Glucose 84 Calcium 9.4 Troponin I High Sens 3 Radiography Chest X-Ray - ED: 1 View, Read by ED Physician, Normal and No Acute Disease Diagnostic Testing: Clinical Impression(s) from Imaging Studies Chest X-Ray 01/04/22 13:29 IMPRESSION: No acute thoracic pathology. Electronically Signed: Remington Bustillo MD at 14:27 EDT Reading Location ID and State: [facility] / [place] Tel , Service support , Rhythm Strip Rhythm Strip: Sinus Rhythm Rate: 65 Ectopy: None EKG Initial EKG: Attestation: I personally reviewed and interpreted this EKG as follows: Interpretation: Sinus Rhythm (62) and No Acute Injury Pattern Comments: Normal EKG Discharge Plan Triage Chief Complaint: Palpitations ED Provider: Daryl Donahue Dx/Rx/DC Orders Clinical Impression: Accelerated idioventricular rhythm, Chest pain Instructions: ED About Arrhythmias Prescriptions: New metoprolol succinate 50 mg tablet extended release 24 hr 50 mg PO DAILY Qty: 30 RF: 0 Continued lactobacillus combination no.8 [Adult Probiotic] 3 billion cell capsule 3,000 mmu cells PO QHS RF: 0 cholecalciferol (vitamin D3) 2,000 unit capsule 2,000 unit PO QHS RF: 0 citalopram 20 mg tablet 20 mg PO DAILY RF: 0 magnesium oxide 400 MG tablet 400 mg PO QHS RF: 0 cyanocobalamin (vitamin B-12) 5,000 mcg tablet,disintegrating 5,000 mcg PO DAILY RF: 0 ascorbic acid (vitamin C) 1,000 MG tablet 1,000 mg PO QHS RF: 0 calcium carbonate 500 MG tablet 500 mg PO QHS RF: 0 bupropion HCl 150 mg tablet extended release 24 hr 150 mg PO DAILY RF: 0 Discontinued Cbd Oil sublingual RF: 0 metoprolol succinate 100 mg tablet extended release 24 hr 100 mg PO QHS Qty: 90 RF: 3 Primary Care Provider: Mane Lindquist Referrals: Mane Lindquist DO [Primary Care Provider] - Ebenezer Durham MD [STAFF PHYSICIAN] - (Call for appointment to be seen THEE after your Holter monitor is turned in) Activity Restrictions/Additional Instructions: After the Holter is done, follow-up with Dr. Durham to see if you need your medications adjusted and/or if you need referred back to [facility]. Disposition Disposition: Home, Self Care
[2022-01-04 14:09] VITALS: BP 121/48; PULSE 63; RESP 15; O2SAT 98
[2022-01-04 15:34] VITALS: BP 114/62; O2SAT 94
[2022-01-04 15:39] VITALS: BP 114/62; PULSE 65; RESP 18; O2SAT 99
== END 2022-01-04 15:39 | disposition home or self-care (01) ==
PROVIDERS: Emergency Provider Emergency Medicine; PCP Family Medicine; Visit Provider Emergency Medicine
DX: I44.2 Atrioventricular block, complete (principal); R00.2 Palpitations; R55 Syncope and collapse
CPT/HCPCS: 71045; 80048; 84484; 85025; 93005; 99285

== ENCOUNTER → 2022-01-04 | Outpatient (CLI) | payer OTHER, SELFPAY | END | disposition home or self-care (01) | LOC: CVS 15:33 | PROVIDERS: PCP Family Medicine; Visit Provider Emergency Medicine | DX: I49.9 Cardiac arrhythmia, unspecified (principal) | CPT/HCPCS: 93225; 93226 ==

== ENCOUNTER → 2022-02-17 | Outpatient (CLI) | payer OTHER, SELFPAY ==
--- NOTE | 2022-02-17 10:06 | ECHOD_ITS ---
Reason For Study: AV Block Procedure This was a 2D Doppler, Color Flow transthoracic echocardiogram. The exam was of adequate technical quality. Exam performed in department. Left Ventricle Normal LV size. Left ventricular systolic function is normal. The estimated ejection fraction is 60 %. No evidence for diastolic dysfunction. No regional wall motion abnormalities noted. Right Ventricle Normal RV size. Normal systolic function. Atria Normal left atrium. Normal right atrium. No doppler evidence for ASD. Mitral Valve There is no mitral annular calcification. Normal mitral valve. Trivial mitral valve insufficiency. Tricuspid Valve Normal tricuspid valve. Trivial tricuspid valve insufficiency. Right ventricular systolic pressure estimated to be 19 mmHg. Aortic Valve Trisinus/trileaflet aortic valve. Normal aortic valve. Pulmonic Valve The pulmonic valve is not well visualized. Trivial pulmonic valve insufficiency. Great Vessels Normal sized aortic root. Pericardium/Pleural No pericardial effusion. MMode/2D Measurements & Calculations LVIDd: 4.3 cm IVSd: 0.95 cm Ao root diam: 3.1 cm LVIDs: 3.1 cm LVPWd: 1.0 cm RVDd: 3.8 cm FS: 29.0 % LAV(MOD-bp): 40.3 ml LVAd ap4: 32.4 cm2 LVAd ap2: 33.9 cm2 LAV(MOD-bp) Indexed: 19.1 ml/m2 LVLd ap4: 8.1 cm LVLd ap2: 8.4 cm LAV(MOD-sp2): 47.2 ml EDV(MOD-sp4): 106.8 ml EDV(MOD-sp2): 118.3 ml LAV(MOD-sp4): 31.5 ml EDV(sp4-el): 109.3 ml EDV(sp2-el): 116.4 ml LVAs ap4: 17.9 cm2 LVAs ap2: 19.9 cm2 LVLs ap4: 7.2 cm LVLs ap2: 7.5 cm ESV(MOD-sp4): 38.6 ml ESV(MOD-sp2): 46.0 ml ESV(sp4-el): 37.5 ml ESV(sp2-el): 45.0 ml EF(MOD-sp4): 63.9 % EF(MOD-sp2): 61.1 % EF(sp4-el): 65.7 % SV(MOD-sp4): 68.2 ml SV(MOD-sp2): 72.3 ml SV(sp4-el): 71.7 ml LA dimension(2D): 3.3 cm LA A4 area: 14.3 cm2 RA A4 area: 15.7 cm2 Doppler Measurements & Calculations MV E max thompson: 65.1 cm/sec Lat Peak E' Thompson: 9.8 cm/sec Med Peak E' Thompson: 8.7 cm/sec MV A max thompson: 56.7 cm/sec E/E' lat: 6.7 E/E' med: 7.5 MV E/A: 1.1 Ao V2 max: 123.5 cm/sec LV V1 max: 109.0 cm/sec PA V2 max: 127.9 cm/sec Ao max P.1 mmHg LV V1 max P.8 mmHg TR max thompson: 196.6 cm/sec TR max P.6 mmHg ECHO/Echo Complete Interpretation Summary Left ventricular systolic function is normal. The estimated ejection fraction is 60 %. Trivial mitral valve insufficiency. Trivial tricuspid valve insufficiency. Trivial pulmonic valve insufficiency. Right ventricular systolic pressure estimated to be 19 mmHg. No evidence for diastolic dysfunction. Ordering Physician: Ebenezer Durham Referring Physician: Mane Lindquist Performed By: Elda Marin RDCS
== END | disposition home or self-care (01) ==
PROVIDERS: PCP Family Medicine; Visit Provider Internal Medicine Cardiovascular Disease
DX: I44.30 Unspecified atrioventricular block (principal)
CPT/HCPCS: 93306

== ENCOUNTER → 2022-04-21 | Outpatient (CLI) | payer OTHER, SELFPAY ==
--- NOTE | 2022-04-21 10:03 | STRESSREP_ITS ---
Stress Test Report Date: 04-21-2022 Procedure: Exercise tolerance test/imaging study Indications: Chest pain; dyspnea on exertion; cardiac dysrhythmias; status post EPS/RFA Consent: Per the patient Procedure: The patient exercised on a Aj protocol for 6 minutes completing Stage II achieving a peak heart rate of 157 bpm (91% predicted maximal heart rate) with a peak blood pressure 158/80 mmHg and a peak MET capacity of 7 METs. The baseline ECG demonstrated sinus bradycardia. The peak exercise ECG demonstrated approximately 0.[address] segment depression in leads II, III, aVF, and V4 through V6 with resolution towards baseline less than 1 minute in recovery. There were no cardiac dysrhythmias pretest, during exercise, or recovery. The functional capacity was considered good. There was no complaint of chest discomfort during exercise or recovery. The examination was discontinued secondary to dyspnea and dizziness. Impression: 1. Technically adequate (percent predicted maximal heart rate greater than 85%) exercise tolerance test 2. Peak exercise ECG with approximately 0.[address] segment depression in leads II, III, aVF, and V4 through V6 with resolution towards baseline less than 1 minute in recovery 3. There were no cardiac dysrhythmias pretest, during exercise, or recovery 4. Nuclear images pending Myocardial perfusion imaging study: Technique: The patient was injected with 14.1 mCi of technetium 99m Cardiolite and subsequently rest SPECT Cardiolite nuclear imaging was obtained in the horizon alphonso long, vertical long, and short axis views. The patient exercised on a Aj protocol for 6 minutes completing Stage II achieving a peak heart rate of 157 bpm (91% predicted maximal heart rate) with a peak blood pressure 158/80 mmHg and a peak MET capacity of 7 METs. The patient was injected with 44.3 mCi of technetium 99m Cardiolite and subsequently stress SPECT Cardiolite nuclear imaging was obtained in the horizontal long, vertical long, and short axis views. A gated Cardiolite study at peak stress was obtained. Interpretation: Rest and stress SPECT Cardiolite nuclear imaging status post realignment, normalization, and attenuation correction, demonstrates the appearance of relative uniform tracer uptake and myocardial perfusion appearing within normal limits. There is end systolic thickening and brightening. The gated Cardiolite study demonstrates myocardial thickening and inward wall motion. The reported LVEF is 67%. Impression: 1. Rest and stress SPECT Cardiolite nuclear imaging demonstrate relative uniform tracer uptake and myocardial perfusion appearing within normal limits. 2. The gated Cardiolite study reports an LVEF of 67%. This note was generated with [employer]OR[employer] software. It may contain incorrect words, spelling, and punctuation that were not noted in checking the note before signing.
== END | disposition home or self-care (01) ==
LOC: CVS 06:55
PROVIDERS: PCP Family Medicine; Referring Provider Internal Medicine Cardiovascular Disease; Visit Provider Internal Medicine Cardiovascular Disease
DX: R07.9 Chest pain, unspecified (principal); I47.1 Supraventricular tachycardia; I44.2 Atrioventricular block, complete; R06.09 Other forms of dyspnea; I49.3 Ventricular premature depolarization; Z95.818 Presence of other cardiac implants and grafts
CPT/HCPCS: 78452; 93017; A9500; A4216

== ENCOUNTER → 2022-06-18 | Outpatient (CLI) | payer OTHER, SELFPAY ==
[2022-06-18 15:38] VITALS: BP 137/79; PULSE 63; RESP 14; O2SAT 99; BMI 31.9
[2022-06-18] MEDS: 0.9% NaCl Peripheral Flush Adult/Peds IV (15:42)
[2022-06-18] MEDS: 0.9% Normal Saline 1,000 ML 999 ML IV (15:42)
[2022-06-18 16:02] LABS: AST(SGOT) 28 U/L (15-37); Alanine Aminotransfer ALT/SGPT 54 U/L (13-56); Alkaline Phosphatase 83 U/L (45-117); Anion Gap 6 (5-15); BUN 11 mg/dL (7-18); BUN/Creat Ratio 15.2 RATIO (10-20); Calcium,Total 9.4 mg/dL (8.5-10.1); Chloride 105 mmol/L (98-107); Creatinine, Serum 0.72 mg/dL (0.55-1.02); EST Glomerular Filtration Rate 91 mL/min (>60); Est Glom Filt Rate - Afr Amer 110 mL/min (>60); Estimated Creatinine Clearance 96.39 ml/min; Glucose 95 mg/dL (74-106); Potassium 3.8 mmol/L (3.5-5.1); Sodium Level 139 mmol/L (136-145)
[2022-06-18 16:48] VITALS: BP 128/68; PULSE 66; RESP 14; O2SAT 98
== END | disposition home or self-care (01) ==
LOC: MEDOUTP 15:05
PROVIDERS: PCP Family Medicine; Referring Provider Nurse Practitioner Family; Visit Provider Nurse Practitioner Family
DX: E86.9 Volume depletion, unspecified (principal)
CPT/HCPCS: 80053; 96360; J7030; A4216